=== PATIENT | male | born 1945 | race Caucasian/White ===

== ENCOUNTER → 2023-12-15 06:54 | Outpatient (REF) | payer MEDICARE, SELFPAY | LOC: RAD 06:54 | PROVIDERS: ATTENDING PHYSICIAN Internal Medicine Critical Care Medicine; FAMILY PHYSICIAN Family Medicine | DX: C34.91 Malignant neoplasm of unspecified part of right bronchus or lung (principal) | CPT/HCPCS: 71250 ==

== ENCOUNTER 2023-12-21 06:27 | Day surgery (SDC) | payer MEDICARE, SELFPAY ==
[2023-12-15 09:46] VITALS: BMI 22.7
--- NOTE | 2023-12-15 15:54 | PTCARENOTE ---
Abnormal EKG reviewed by Dr. Hardy, no further action requested.
[2023-12-21] VITALS (7 sets, daily range): BP systolic 117–179; BP diastolic 59–89; BMI 21.7
== END 2023-12-21 12:47 | disposition home or self-care (01) ==
LOC: SDS 06:27
PROVIDERS: ATTENDING PHYSICIAN Internal Medicine Critical Care Medicine
DX: C34.31 Malignant neoplasm of lower lobe, right bronchus or lung (principal)
CPT/HCPCS: 31629; 31624; 31623; 31627; 31654; 88172; 88173; 88305; 71045; 74018; 76000; 88112; 88177; 88333; 88334; 94640; C1887

== ENCOUNTER 2024-06-20 06:07 | Day surgery (SDC) | payer MEDICARE, SELFPAY ==
[2024-06-06 13:59] VITALS: BMI 22.1
[2024-06-20] VITALS (7 sets, daily range): BP systolic 105–136; BP diastolic 64–87; BMI 22.1
[2024-06-20] MEDS: HEPARIN 5000 UNITS SC (06:38)
[2024-06-20] MEDS: NORMOSOL-R/PLASMALYTE-A 1000 IV (06:46)
--- NOTE | 2024-06-20 08:27 | OR.RPT ---
Operative Report
Operative Report
Primary Surgeon: Nano
Assisting: Marla BRAY
Pre-op Diagnosis: Left inguinal hernia
Post-op Diagnosis: Same
Procedure Performed: Robot assisted laparoscopic repair of left inguinal hernia
Anesthesia Type: GETA
Specimen / Cultures: None
Estimated Blood Loss: 2cc
Complications: None immediate
Operative Findings: Left indirect defect and weak direct space without discrete defect, small cord lipoma; XL MID 3D Max
Date of surgery: 06/20/24
Indications:� This 78M developed a symptomatic left inguinal hernia. Robot assisted laparoscopic repair of left inguinal hernias was planned.
Description of procedure:� The patient was taken to the operating room and positioned into supine position. The patient�s abdomen was prepped and draped in standard sterile fashion. A time-out was completed verifying correct patient, procedure,
site, positioning, and implants and special equipment prior to beginning this procedure.
A stab incision was made in the left upper quadrant, a Veress needle was inserted and proper position was confirmed by aspiration and saline drop test. Following this, pneumoperitoneum was created with insufflation of carbon dioxide to 12 mmHg. Then
a 8mm robotic trocar was inserted above and to the left of the umbilicus. A laparoscope was inserted and the area of initial trocar entry and Veress needle placement were both inspected and no injuries were found. Two 8mm trocars were then placed
lateral to the rectus sheath under direct visualization.
Both inguinal regions were inspected and the median umbilical ligament, medial umbilical ligament, and lateral umbilical fold were identified. Right mesh plug noted, stable, no evidence of recurrence. Attention was turned to the left groin. The
peritoneum was incised transversely above the defect and a flap was developed in the caudad direction. North�s ligament was identified ultimately dissected to its junction with the iliac vein and the space of Retzius was developed bluntly.� The
dissection was continued inferiorly to the iliopubic tract, with care taken to avoid injury to the femoral branch of the genitofemoral nerve and the lateral femoral cutaneous nerve. The cord structures were parietalized.
The direct space was inspected and no hernia defect was identified, however the wall was clearly weak in this area. The femoral space was inspected no defect was identified. The indirect space was inspected and a hernia was identified and reduced by
gentle traction. The canal was inspected and a small cord lipoma was identified and reduced by gentle traction.
Extra large left MID 3D max mesh was passed through a trocar. The mesh was placed into the preperitoneal space and moved into position to lay flat and completely cover the direct, indirect, and femoral spaces with overlap at the midline. The mesh
was secured into place using 2-0 vicryl suture to North�s ligament medially and laterally. Care was taken to avoid the inferolateral triangles containing the iliac vessels and genital nerves. The peritoneal flap was closed over the mesh and secured
with 2-0 monocryl stratafix suture in similar positions of safety. A 14g angiocath was used to decompress the preperitoneal space revealing good seal and all mesh in good position without folding or curling.
After ensuring adequate hemostasis, the trocars were removed and the pneumoperitoneum allowed to escape. The trocar incisions were closed at the skin level using 4-0 monocryl and topical skin adhesive. All counts were correct and the patient
tolerated the procedure well and was taken to the postanesthesia care unit in stable condition.
The assistance of Marla BRAY was required due to the complexity of the procedure. During the procedure she assisted with retraction, resection, and closure of the wound.
[2024-06-20] MEDS: TYLENOL 650 MG PO (09:29)
== END 2024-06-20 11:20 | disposition home or self-care (01) ==
LOC: SDS 06:07
PROVIDERS: ATTENDING PHYSICIAN Surgery; FAMILY PHYSICIAN Physician Assistant
DX: K40.90 Unilateral inguinal hernia, without obstruction or gangrene, not specified as recurrent (principal)
CPT/HCPCS: 49650; C1781

== ENCOUNTER 2024-08-29 14:30 | Inpatient (IN) | payer MEDICARE, SELFPAY ==
[2024-08-29] VITALS (22 sets, daily range): BP systolic 100–140; BP diastolic 49–70
[2024-08-29 12:26] LABS: % Basophils 0.2 % (0-2); % Eosinophils 0.1 % (0-6); % Immature Granulocytes 7.1 % (0-0.5); % Lymphocytes 3.4 % (20.5-51.1); % Monocytes 4.4 % (1.7-9.3); % Neutrophils 84.8 % (42.2-75.2); Absolute Immature Granulocytes 1.3 10^3/uL (0-0.05); Absolute Lymphocytes 0.6 10^3/uL (1.2-3.4); Absolute Monocytes 0.8 10^3/uL (0.1-0.6); Absolute Neutrophils 15.6 10^3/uL (1.4-6.5); Mean Corp Hgb Conc. 33.3 g/dL (33.0-37.0); Mean Corpuscular Hgb 30.3 pg (27.0-31.0); Mean Corpuscular Volume 90.9 fL (80.0-94.0); Mean Platelet Volume 9.5 fL (7.4-10.4); Nucleated Red Blood Cells % 2.4 % (-); Platelet Count 316 10^3/uL (130-400); Red Blood Cell Count 1.65 10^6/uL (4.70-6.10); Red Cell Dist. Width 18.6 % (11.5-14.5); White Blood Cell Count 18.4 10^3/uL (4.8-10.8)
[2024-08-29 12:36] LABS: NT-proBNP 1820 pg/ml
[2024-08-29 12:37] LABS: AST (SGOT) 36 U/L (17-59); Albumin 2.8 g/dl (3.5-5.0); Alkaline Phosphatase 100 U/L (38-126); Blood Urea Nitrogen 26 mg/dl (9-20); Carbon Dioxide 22 mmol/L (22-30); Chloride 100 mmol/L (98-107); Estimated Creatinine Clearance 61 ml/min; Glucose 126 mg/dl (70-99); Potassium 4.6 mmol/L (3.5-5.1); Sodium 131 mmol/L (135-145); Total Bilirubin 0.5 mg/dl (0.2-1.3); Total Protein 5.2 g/dl (6.3-8.2); Troponin I 0.099 ng/ml; eGFR > 60.00
[2024-08-29 12:38] LABS: ALT (SGPT) 60 U/L (0-50)
--- NOTE | 2024-08-29 13:26 | ED.GENMED ---
History of Present Illness
General
Chief Complaint: Breathing Problem
Time Seen by Provider: 08/29/24 11:21
History of Present Illness
History of Present Illness:
78-year-old male with history of COPD, Known right lower lobe lung cancer status post proton therapy and radiation presents to the emergency department for evaluation of shortness of breath and hypoxemia. Went to his primary care physician's office
due to shortness of breath and was found to be hypoxic. Patient is currently under the care of oncology at [facility], has been following his lung cancer with routine CAT scans. He apparently had CT scans on August 13 as well as August 23 at
[facility] that were negative for pulmonary embolism but showing a stable mass in the right lower as well as left lower lobes. He is not currently on any oncologic treatments. He denies any chest pain during my evaluation but reported this
to EMS as well as nursing staff on arrival. Not chronically on O2. Of note he was also treated earlier this month for herpes zoster of the left chest with prednisone
Review of Systems
Review of Systems
Allergies reviewed?: Yes
All Other Systems: ROS reviewed and negative except as documented in HPI and ROS
Phy Exam
Physical Exam
Physical Exam:
GEN: Well appearing, NAD, WDWN
Eyes: PERRLA, EOMs intact, no scleral icterus
HENT: NCAT, oral mucosa moist
Lungs: Tachypneic, wheezes heard throughout all lung oliva, mildly diminished left breath sounds
Cardiac: Tachycardic, regular, questionable systolic murmur best heard at the left upper sternal border
Abdomen: S, NT, ND, NABS, no masses or hepatosplenomegaly
Rectal: Melanotic stool in the rectal vault, heme positive
Neuro: AO x 3
MSK: No gross deformity or ecchymosis. No edema. No digital clubbing
Skin: No rashes, petechiae. Normal color, no pallor or jaundice.
Psych: Calm, cooperative, proper hygiene
Scores
Heart Failure Risk
Heart Failure Risk Score: Not Applicable
Course
Orders/Labs/Results
Orders:
Orders
08/29/24 11:21
Electrocardiogram (*1) Urgent
Reason for Study: Other
Other Reason for Exam: Respiratory Distress
Cardiac Monitoring- Treatment ONCE
EKG- Treatment ONCE
O2 Therapy [RESP] Urgent
Titrate/Wean O2 to maintain O2 sat greater than (%): 93
Special Instructions: TO MAINTAIN CONTINUOUS O2 SATS >/= 93%
08/29/24 11:31
CR Chest - 2 Views Urgent
Comment:
Reason For Exam: SOB
08/29/24 11:38
Complete Blood Count/With Diff Urgent
Comprehensive Metabolic Panel Urgent
NT-proBNP Urgent
Troponin I Urgent
08/29/24 12:52
Blood Bank Products [* Blood Bank Products] Urgent
Blood Bank Products: *Packed RBC Leuko(PRBC's)
Quantity: 2
Transfuse Today: Yes
Reason: Bleeding
Pantoprazole [Protonix IV] 80 mg IV NOW STA
08/29/24 13:00
Pantoprazole 80 mg/100 ml Nss [Protonix] 80 mg in 100 ml IV Q10H
08/29/24 13:13
Type+Screen Urgent
[facility] Wristband Number:
08/29/24 13:29
ABO2 Urgent
[facility] Wristband Number:
Associate notified that ABO2 has been ordered: [id number]
Date: 08/29/24
Time: 13:00
Teacher Associate ID: [id number]
Abnormal Lab Results
08/29/24
11:38
WBC 18.4 H 10^3/uL
(4.8-10.8)
RBC 1.65 L 10^6/uL
(4.70-6.10)
Hgb 5.0 L* g/dL
(13.0-18.0)
Hct 15.0 L* %
(39.0-52.0)
RDW 18.6 H %
(11.5-14.5)
Abs Immat Gran (auto) 1.3 H 10^3/uL
(0-0.05)
Absolute Neuts (auto) 15.6 H 10^3/uL
(1.4-6.5)
Absolute Lymphs (auto) 0.6 L 10^3/uL
(1.2-3.4)
Absolute Monos (auto) 0.8 H 10^3/uL
(0.1-0.6)
Immature Gran % 7.1 H %
(0-0.5)
Neutrophils % 84.8 H %
(42.2-75.2)
Lymphocytes % 3.4 L %
(20.5-51.1)
Sodium 131 L mmol/L
(135-145)
BUN 26 H mg/dl
(9-20)
Glucose 126 H mg/dl
(70-99)
Calcium 8.0 L mg/dl
(8.4-10.2)
ALT 60 H U/L
(0-50)
Troponin I 0.099 H* ng/ml
Total Protein 5.2 L g/dl
(6.3-8.2)
Albumin 2.8 L g/dl
(3.5-5.0)
08/29/24 11:38
08/29/24 11:38
Vital Signs
Initial and Last Documented VS:
Initial Vital Signs
BP
112/56
08/29/24 11:19
Last Documented Vital Signs
Temp Pulse Resp BP Pulse Ox
98.7 F 98 19 112/56 99
08/29/24 11:23 08/29/24 12:00 08/29/24 12:00 08/29/24 11:23 08/29/24 12:00
MDM/Problems Addressed
MDM/Problems Addressed:
Patient's shortness of breath is most likely on the basis of acute anemia which is most likely due to upper GI bleeding in the setting of recent prednisone usage. Lack of digital perfusion may explain his hypoxemia although he did improve with
supplemental oxygen use. Certainly cannot fully discount a pulmonary source however doubt pulmonary embolism given the 2 negative PE studies within the past 2 weeks and lack of current chest pain. Will admit on PPI infusion with blood transfusion
ordered
*Critical Care Note
Total Time (30-74mins, 75-104mins- exclusive of procedures): 30 minutes
comment:
Critical care time: 30 minutes
Critical care time was exclusive of: Separately billable procedures, treating other patients, and teaching time
Critical care was necessary to treat or prevent imminent or life-threatening deterioration of the following conditions: Acute blood loss anemia
Critical care time spent personally by me on the following activities:
[x] Review of old charts
[x] Obtaining history from patient or surrogate
[x] Ordering and review of the laboratory studies
[x] Ordering and review of radiographic studies
[x] Ordering and performing treatments and interventions
[x] Patient patient's response to treatment
[x] Development of treatment plan with patient or surrogate
ED Attending Note
-
Portions of this chart may have been created with voice recognition software.� Occasional wrong word or��sound alike� substitutions may have occurred due to the inherent limitations of voice recognition software.
Discharge Plan
Departure
Patient Disposition: Admit
Date of Disposition: 08/29/24
Time of Disposition: 13:40
Admit to: Med/Surg
Presentation/result/management discussed w/ accepting MD/DO: Hospitalist
Discharge Problem:
Acute upper GI bleed
Prescriptions:
No Action
latanoprost 0.005 % Drops
1 drp BOTH EYES HS
acetaminophen 500 mg Capsule
1,000 mg PO Q6H PRN (Reason: pain)
Breztri Aerosphere 160-9-4.8 mcg/actuation Hfa Aerosol Inhaler
2 inh INHALATION HS
atorvastatin 20 mg Tablet
20 mg PO HS
ibuprofen 200 mg Tablet
400 mg PO Q6H PRN (Reason: Pain)
tramadol 50 mg tablet
50 - 100 mg PO Q6H PRN (Reason: pain) Qty: 14 0RF
Referrals:
Yaima Sumner MD [Family Provider] -
Interventions
Interventions:
*Risk Screen - Suicide Last Done: 08/29/24 11:23
*General Assessment Last Done: 08/29/24 11:23
*Neglect/Abuse Screening Last Done: 08/29/24 11:23
*ED- Fall Risk Assessment Last Done: 08/29/24 11:23
*ED COVID-19 Vaccine History Last Done: 08/29/24 11:23
ED- Cardiac Assessment Last Done: 08/29/24 11:20
ED- Pulmonary Assessment Last Done: 08/29/24 11:20
Discharge Date and Time
Print Language: WOLOF
--- NOTE | 2024-08-29 13:46 | HPS.HSE ---
Family Physician
-
Family Physician: Yaima Sumner
Chief Complaint
-
Shortness of Breath
History of Present Illness
Patient is a 78 y/o male past medical history of lung cancer s/p proton therapy, COPD and hyperlipidemia who presents with shortness of breath. Patient reports increasing dyspnea on exertion and significant weakness. He reports associated
dizziness. He has been taking steroids for his lung and recently has been taking ibuprofen 400mg three to four times a day due to pain from recent shingles. Work-up in the emergency department revealed Hgb 5.0. Patient reports black stools for
about a month, with some intermittent epigastric abdominal discomfort. Patient denies any prior histoyr of GI bleed, and he has never had a upper endoscopy or colonoscopy.
Medical History
Past Medical History
Past Medical History: Reports Other
Additional Past Medical History:
Lung Cancer s/p Proton Therapy and Radiation
COPD
Hyperlipidemia
Shingles
Past Surgical History: Reports Other
Additional Past Surgical History:
Hernia Repair
Appendectomy
Bilateral Cataracts
Social History
Tobacco: Former Smoker (Quit about 6 months ago)
Alcohol: Occasional
Family History
Family History: Not pertinent
Allergies / Home Medications
Allergies reflects when Allergies were last updated in [facility].
Home Medications with original date entered in [facility]
Allergy/Medication List:
Allergies
Allergy/AdvReac Type Severity Reaction Status Date / Time
No Known Allergies Allergy Verified 08/29/24 11:19
Home Medications
budesonide 160 mcg-glycopyr 9 mcg-formot 4.8 mcg/actuation HFA inhaler (Breztri Aerosphere) 2 inh inhalation R BID 10/01/22
latanoprost 0.005 % eye drops 1 drp BOTH EYES HS 10/01/22
atorvastatin 20 mg tablet 20 mg PO HS 12/17/23
ibuprofen 200 mg tablet 400 mg PO Q6HPRN PRN mild Pain 12/17/23
albuterol sulfate 90 mcg/actuation aerosol inhaler 2 puff inhalation R Q6HPRN PRN sob 08/29/24
gabapentin 300 mg capsule 300 mg PO BIDPRN PRN shingles 08/29/24
prednisone 10 mg tablet 10 mg PO BID 08/29/24
Review of Systems
-
A 12 point ROS was completed and negative except as noted: Yes
Constitutional: Denies Fever or Chills
Respiratory: Reports Trouble Breathing; Denies Cough
Cardiac: Denies Chest Pain or Palpitations
Physical Exam
Vital Signs
Vital Signs
Temp Pulse Resp BP Pulse Ox
98.7 F 98 19 112/56 99
08/29/24 11:23 08/29/24 12:00 08/29/24 12:00 08/29/24 11:23 08/29/24 12:00
Physical Exam
General: Well Developed, Well Nourished, No Apparent Distress and Other (Appears pale)
HEENT: NormoCephalic, Anicteric, Moist mucous membranes, Atraumatic and Oxygen (Nasal Cannula)
Respiratory: Clear and Non Labored Respirations; No Wheezes, Rales or Rhonchi
Cardiac: S1/S2, Regular Rhythm and Tachycardia (Slightly); No Murmur
GI: Soft and Non Tender
Rectal: Deferred by Provider
Musculoskeletal: No Clubbing, No Cyanosis and No Edema
Skin: Warm and Dry; No Rash
Neuro: Awake, Alert, Oriented and Nonfocal/grossly intact
Psych: Calm
Laboratory Results
-
08/29/24 11:38
08/29/24 11:38
Laboratory Results
Total Bilirubin 0.5 mg/dl (0.2-1.3) 08/29/24 11:38
AST 36 U/L (17-59) 08/29/24 11:38
ALT 60 U/L (0-50) H 08/29/24 11:38
Alkaline Phosphatase 100 U/L (38-126) 08/29/24 11:38
Troponin I 0.099 ng/ml H* 08/29/24 11:38
Data Reviewed
-
Lab Data: Labs Reviewed by me
Impression/Plan
-
Symptomatic Acute Blood Loss Anemia secondary to GI Bleed
-Check iron studies
-Transfuse 2 units PRBCs
-Trend serial Hgb
Upper GI Bleed likely secondary to NSAIDs and steroids
-Consult GI
-Continue NPO
-Continue Protonix drip
Elevated Troponin, suspect Type II AL due to demand ischemia in setting of severe anemia
-Continue to trend troponin
Leukocytosis, no evidence of active infection
-Suspect reactive due to GI Bleed
-Continue to trend
-Monitor for signs/symptoms of infections
Hyponatremia, mild
-Continue to trend
COPD, no acute exacerbation
-Continue Breztri
-Continue albuterol prn
-Wean prednisone twice a day to daily
Lung Cancer s/p Proton Therapy
-Patient reports known right upper lobe lung cancer, and known left lower lung mass which is non-cancerous
Hyperlipidemia
-Resume atorvastatin when able to resume diet
DVT proph: SCDs
Code Status: Full Code
[2024-08-29] MEDS: PROTONIX IV 80 MG IV (13:49)
[2024-08-29] MEDS: PROTONIX 100 IV ×2 (13:50→23:39)
--- NOTE | 2024-08-29 14:14 | W.PN.UPDATE ---
Update Note
Progress Note Update
This is an addendum to H&P written by Vanessa Bueno on 08/29/2024. Patient seen and examined independently with PA.
58-year-old male past medical history of COPD, known right lower lobe lung cancer status post proton therapy and radiation not currently on treatment, recent herpes zoster status post treatment with prednisone and taking ibuprofen, presenting with
shortness of breath and hypoxemia and dizziness. Has been having black stool for a month with epigastric discomfort. No chest pain. Patient states that he was told that he has a mass in his left lower lung as well which is not a cancer.
Vital signs show tachycardia. EKG shows normal sinus rhythm, left anterior fascicular block. Chest x-ray shows opacification in the right lung base secondary to known lung cancer. New opacity in the mid to lower left lung which may represent
malignancy or pneumonia.
Labs show hemoglobin of 5 from 13. Leukocytosis of 18. Sodium of 131. Troponin 0.099. Cardiac BNP of 1800.
Patient with likely peptic ulcer with acute blood loss anemia from NSAID use. N.p.o., 2 units of blood, iron studies, Protonix drip, GI consulted.
Chest x-ray showing findings of pneumonia although no correlating symptoms. This is likely known as per patient. Suspect leukocytosis is reactive from upper GI bleeding.
--- NOTE | 2024-08-29 14:39 | CON.GI ---
Addendum entered and electronically signed by Nicolas Low MD 08/29/24 18:37:
I saw and examined the patient.
The PA's note was reviewed and I agree with the note.
Comment:
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 He reports significant NSAID use with ibuprofen 400 mg 3-4 times per day for past
month. He also reports melena for past month. Denies prior EGD. Hgb on admission is 5. Receiving pRBC today. Suspect PUD given his NSAID use. Plan for EGD tomorrow. Continue with PPI.
Original Note:
Consultation
-
Date/Time Consultation Requested: 08/29/24 1414
Date/Time Consultation Performed: 08/29/24 1440
Requesting Provider: Vanessa Galvez PA-C
Performing Provider: AAKASH Arrington, Nicolas Low MD
Reason for Consultation: GI bleed
Medical History
Chief Complaint / HPI
Chief Complaint: black stools
History of Present Illness:
Pt is a 78yo with hx emphysema/COPD, squamous cell of lung with radiation BID and Proton therapy in March of 2024, inguinal hernia repair, appe, hypercholesterolemia, and recent shingles with onset of shortness of breath with weakness and
dizziness. In ER pt admitted to taking steroids along with Ibuprofen 400mg 3-4 times per day with recent shingles pain. On admission hbg 5 with BUN of 26 and reports black stools for 1 month with 1 stool daily with melena on rectal in ER. Pt
also admits to issue ulcer from broken tooth rubbing on tongue.
At this time patient admits to GERD but denies odynophagia, dysphagia, abdominal pain, constipation or reds stools. No hx EGD or colonoscopy in past.
Past Medical History
Past Medical History: COPD and Other (prior shingles )
Past Surgical History: Appendectomy and Other (inguinal hernia repair, cartaracts )
Social History
Tobacco: Former Smoker
Alcohol: Occasional
Drug: None
Personal:
Living: With Family
Employment: Retired
Family History
Family History: Other (one son with GERD and son with prostate CA)
Allergies / Home Medications
Allergy/AdvReac Type Severity Reaction Status Date / Time
No Known Allergies Allergy Verified 08/29/24 11:19
�Medication �Instructions �Recorded
budesonide 160 mcg-glycopyr 9 2 inh inhalation R BID 10/01/22
mcg-formot 4.8 mcg/actuation HFA
inhaler (27 [address])
latanoprost 0.005 % eye drops 1 drp BOTH EYES HS 10/01/22
atorvastatin 20 mg tablet 20 mg PO HS 12/17/23
ibuprofen 200 mg tablet 400 mg PO Q6HPRN PRN mild Pain 12/17/23
albuterol sulfate 90 mcg/actuation 2 puff inhalation R Q6HPRN PRN sob 08/29/24
aerosol inhaler
gabapentin 300 mg capsule 300 mg PO BIDPRN PRN shingles 08/29/24
prednisone 10 mg tablet 10 mg PO BID 08/29/24
Review of Systems
-
History Source: Patient and Family
Constitutional: Reports No Symptoms
EENT: Reports Other (mouth pain with tooth issue and ulcer on tongue from tongue rubbing on tooth )
Respiratory: Reports Trouble Breathing
Cardiac: Reports No Symptoms
Abdomen/GI: Reports Other (mild GERD)
: Reports Difficulty Voiding
Neurological: Reports Weakness
Endocrine: Reports No Symptoms
Hematologic/Lymphatic: Reports Bleeding
Vital Signs
Temp Pulse Resp BP Pulse Ox
98.7 F 93 18 108/62 100
08/29/24 11:23 08/29/24 13:45 08/29/24 13:45 08/29/24 13:00 08/29/24 13:58
Physical Exam
Exam
General: Other (pale appearing )
HEENT: Normocephalic and Anicteric
Respiratory: Other (decreased bases )
Cardiac: Regular Rhythm
GI: Soft, Non Tender and Non Distended
Rectal: Black (in ER)
Musculoskeletal: No Clubbing and No Cyanosis
Skin: Warm, Dry and Other (left shoulder rash with healing )
Neuro: Awake, Alert and AO x 3
Psych: Calm
Results
WBC 18.4 10^3/uL (4.8-10.8) H 08/29/24 11:38
Hgb 5.0 g/dL (13.0-18.0) L* 08/29/24 11:38
Hct 15.0 % (39.0-52.0) L* 08/29/24 11:38
MCV 90.9 fL (80.0-94.0) 08/29/24 11:38
Plt Count 316 10^3/uL (130-400) 08/29/24 11:38
Absolute Neuts (auto) 15.6 10^3/uL (1.4-6.5) H 08/29/24 11:38
Sodium 131 mmol/L (135-145) L 08/29/24 11:38
Potassium 4.6 mmol/L (3.5-5.1) 08/29/24 11:38
Chloride 100 mmol/L (98-107) 08/29/24 11:38
Carbon Dioxide 22 mmol/L (22-30) 08/29/24 11:38
BUN 26 mg/dl (9-20) H 08/29/24 11:38
Creatinine 0.8 mg/dL (0.7-1.3) 08/29/24 11:38
Calcium 8.0 mg/dl (8.4-10.2) L 08/29/24 11:38
Total Bilirubin 0.5 mg/dl (0.2-1.3) 08/29/24 11:38
AST 36 U/L (17-59) 08/29/24 11:38
ALT 60 U/L (0-50) H 08/29/24 11:38
Alkaline Phosphatase 100 U/L (38-126) 08/29/24 11:38
Diagnostic Image Results:
08/29/24 Chest - 2 Views
Opacification of the right lung base in part secondary to the patient's known right lower lobe lung cancer, with suspicion for accompanying postobstructive atelectasis or pneumonia.
New opacity in the mid to lower left lung, which may represent malignancy or pneumonia.
No pneumothorax or large pleural effusion. The cardiomediastinal silhouette is stable. Chronic degenerative changes of the spine.
Prior GI Procedures:
EGD: none
Colonoscopy: none
Assessment / Plan
-
Pt is a 78yo with hx emphysema/COPD, squamous cell of lung with radiation BID and Proton therapy in March of 2024, inguinal hernia repair, appe, hypercholesterolemia, and recent shingles with onset of shortness of breath with weakness and
dizziness. In ER pt admitted to taking steroids along with Ibuprofen 400mg 3-4 times per day with recent shingles pain. On admission hbg 5 with BUN of 26 and reports black stools for 1 month with 1 stool daily with melena on rectal in ER. Pt
also admits to issue ulcer from broken tooth rubbing on tongue.
-symptomatic anemia
-melena
-recent NSAID for shingles pain
-squamous cell of lung with radiation BID and Proton therapy in March of 2024 on prolonged steroids use
-broke tooth with tongue ulcer
other med problems:
-emphysema/COPD
-inguinal hernia repair
-appe
- hypercholesterolemia
PLAN:etiology of melena with anemia related to PUD, ectasia, mass vs other
plan for transfusion today
will plan for tentative EGD in AM if hbg improved
if EGD not consider eventual colonoscopy with no prior screening in past
since slow bleed ok for low residue dinner then NPO for AM
trend hbg
cont PPI
updated
-
-
Thank you for consultation and allowing me to participate in the patient's care. Please call the specialty finishing utility person GI physician during the after hours with any questions or concerns.
[2024-08-29 15:41] LABS: Iron 33 ug/dl (49-181)
[2024-08-29 15:48] LABS: Percent Saturation 15 % (20-50); Total Iron Binding Capacity 209 ug/dl (261-462)
[2024-08-29] MEDS: TYLENOL 650 MG PO (16:40)
[2024-08-29 17:08] LABS: Folate 9.1 ng/ml (2.76-20); Vitamin B12 711 pg/ml (239-931)
[2024-08-29 19:18] LABS: Hematocrit 18.6 % (39.0-52.0); Hemoglobin 6.3 g/dL (13.0-18.0)
[2024-08-29 19:23] LABS: Troponin I 0.226 ng/ml
[2024-08-29] MEDS: NSS 1000 IV (20:33)
[2024-08-29] MEDS: SYMBICORT 160/4.5 MCG INHALER 2 PUFF INH (21:26)
[2024-08-29] MEDS: NEURONTIN 300 MG PO (22:39)
[2024-08-30] VITALS (22 sets, daily range): BP systolic 22–156; BP diastolic 54–102; PULSE 133; O2SAT 91; BMI 21.3
[2024-08-30] MEDS: TYLENOL 650 MG PO ×2 (00:25→07:46)
[2024-08-30] MEDS: PROTONIX IV (00:25)
[2024-08-30 01:06] LABS: Hemoglobin 9.3 g/dL (13.0-18.0)
[2024-08-30 01:15] LABS: Troponin I 0.269 ng/ml
--- NOTE | 2024-08-30 03:03 | PTCARENOTE ---
Received pt from ED. Pt aaox3, anxious, forgetful at times, able to make needs known. ST with BBB on the monitor. SaO2 93% on 3LNC. Inspiratory and expiratory wheezes throughout. SANCHEZ. NPO @[place] for EGD in AM. NSS and PPI gtt running through L FA. PO
tylenol given for pain from shingles on L upper chest. Pt resting comfortable in bed at this time. Repeat hgb 9.3, repeat trop 0.269. Will repeat with am labs.
[2024-08-30 06:07] LABS: Blood Urea Nitrogen 20 mg/dl (9-20); Calcium 7.2 mg/dl (8.4-10.2); Carbon Dioxide 21 mmol/L (22-30); Chloride 107 mmol/L (98-107); Estimated Creatinine Clearance 70 ml/min; Glucose 102 mg/dl (70-99); Potassium 4.1 mmol/L (3.5-5.1); Sodium 133 mmol/L (135-145); eGFR > 60.00
[2024-08-30 06:11] LABS: Troponin I 0.267 ng/ml
[2024-08-30 06:43] LABS: Hematocrit 22.4 % (39.0-52.0); Hemoglobin 7.8 g/dL (13.0-18.0); Mean Corp Hgb Conc. 34.8 g/dL (33.0-37.0); Mean Corpuscular Hgb 29.9 pg (27.0-31.0); Mean Corpuscular Volume 85.8 fL (80.0-94.0); Mean Platelet Volume 8.9 fL (7.4-10.4); Platelet Count 229 10^3/uL (130-400); Red Blood Cell Count 2.61 10^6/uL (4.70-6.10); Red Cell Dist. Width 16.8 % (11.5-14.5); White Blood Cell Count 12.4 10^3/uL (4.8-10.8)
[2024-08-30] MEDS: DELTASONE 10 MG PO (07:46)
[2024-08-30] MEDS: NSS 1000 IV (07:46)
[2024-08-30] MEDS: SYMBICORT 160/4.5 MCG INHALER 2 PUFF INH ×2 (08:16→20:16)
[2024-08-30] MEDS: SPIRIVA RESPIMAT 2.5 MCG 2 PUFF INH (08:16)
[2024-08-30] MEDS: PROTONIX 100 IV (08:27)
--- NOTE | 2024-08-30 09:30 | PTCARENOTE ---
Patient sent to GI Lab with transport.
--- NOTE | 2024-08-30 15:54 | CM ---
Patient with Hx lung cancer and shingles with Dx GIB s/p EGD today. Contact Precautions. O2 3L. Receiving IVF. PT recommends SNF vs HH, OT recommends HH + support.
Spoke with patient's Lynnette;
the patient resides with his in a double wide mobile home with 1 YAHAIRA.
Other family resides on same property in another home.
The patient has been independent in ADLs and ambulation, mostly sitting in his recliner during the day.
About 3 days ago he became weak and was not eating. 2 family members had to assist him to get into car to come to hospital.
No DME however PA at [facility] was ordering him some O2 which has not arrived - will call and find out what was ordered and through which DME company, and let CM know.
No prior VN or SNF.
Prior [facility]
PCP - DRE Shepard
Pharmacy - [facility]
agrees to VN for SN/PT/OT and has no agency preference- she agrees to a referral to [facility].
Plan follow up with about home O2 that PCP ordered.
Plan home with [facility].
--- NOTE | 2024-08-30 16:00 | PTCARENOTE ---
Patient walked to bathroom with RN. Pt had very dark brown BM in toilet. Pt remains dyspneic on exertion and tachypneic on 3L. SPO2 drops into 80s with exertion. Pt recovers quickly within a few minutes. Pt c/o of pain to L shoulder/chest area
today, medicated with Tylenol, see MAR. Pt's at bedside most of the morning and updated per RN ability. Assessment, care and VS as charted.
--- NOTE | 2024-08-30 16:41 | W.PN.HOSP.TC ---
Today's Communication/Plan
-
CT chest
Monitor hemoglobin
Stop fluids
Assessment / Plan
Assessment / Plan
Physical Exam
General: Well Developed, Well Nourished, No Apparent Distress and Other (Appears pale)
HEENT: NormoCephalic, Anicteric, Moist mucous membranes, Atraumatic and Oxygen (Nasal Cannula)
Respiratory: Clear and Non Labored Respirations; No Wheezes, Rales or Rhonchi
Cardiac: S1/S2, Regular Rhythm and Tachycardia (Slightly); No Murmur
GI: Soft and Non Tender
Rectal: Deferred by Provider
Musculoskeletal: No Clubbing, No Cyanosis and No Edema
Skin: Warm and Dry; No Rash
Neuro: Awake, Alert, Oriented and Nonfocal/grossly intact
Psych: Calm
Symptomatic Anemia
-i suspect with elev ferritin levels and mass - issue of anemia of chronic disease
--Transfuse 2 units PRBCs
-Trend serial Hgb
-EGD without active bleed, F/u EGD outpt
-PPI
-GI recs appreciated
-f/u tsh
-May need hematology eval, will wait for ct imaging
#Shortness of breath
#Lung Opacities
-related to symptomatic anemia and possible underlying pulm issue
-f/u ct imaging
-possible Pulm/Onc consult thereafter
Elevated Troponin, suspect Type II IL due to demand ischemia in setting of severe anemia
-Continue to trend troponin
Leukocytosis, no evidence of active infection
-Suspect reactive due to GI Bleed
-Continue to trend
-Monitor for signs/symptoms of infections
Hyponatremia, mild
-Continue to trend
COPD, no acute exacerbation
-Continue Breztri
-Continue albuterol prn
-Wean prednisone twice a day to daily
Lung Cancer s/p Proton Therapy
-Patient reports known right upper lobe lung cancer, and known left lower lung mass which is non-cancerous
-repeat chest imaging
Hyperlipidemia
-Resume atorvastatin when able to resume diet
DVT proph: SCDs for today until hemoglobin ensured to be stable
Code Status: Full Code
Total time spent on today's encounter was 51 minutes which included time spent in counseling the patient/family regarding diagnosis and treatment plan as listed above, goals of care, and symptom management. Case was discussed with nursing staff,
specialists, and care coordinators/case management. All labs and imaging personally reviewed by me. Remainder the time spent in detailed review of previous records, lab data, imaging, and other medical provider documentation.
Anticipated Discharge: 24 - 48 hours
Subjective/Interval History
-
Date of Service: August 30, 2024
still with SOB,egd unremarkable for active bleed
Objective Data
-
Labs:
Laboratory Results
08/30/24
05:32
WBC 12.4 H
Hgb 7.8 L
Hct 22.4 L
Plt Count 229 D
Sodium 133 L
Potassium 4.1
Chloride 107
Carbon Dioxide 21 L
BUN 20
Creatinine 0.7
Glucose 102 H
Calcium 7.2 L
Vital Signs:
Vital Signs
Temp Pulse Resp BP Pulse Ox
98.6 F 118 28 133/76 92
08/30/24 11:10 08/30/24 12:53 08/30/24 12:53 08/30/24 12:53 08/30/24 13:07
I&O
08/29/24 08/30/24 08/31/24
06:59 06:59 06:59
Intake Total 500 / 500 730 / 730
Output Total 900 / 900
Balance 500 / 500 -170 / -170
Review of Systems
-
History Source: Patient
All other systems: Not reviewed unless documented
Data Reviewed
-
Diagnostic Radiology: Report Reviewed by me
Labs: Labs Reviewed by me
[2024-08-30 17:28] LABS: Iron < 20 ug/dl (49-181)
[2024-08-30 17:29] LABS: Total Iron Binding Capacity 192 ug/dl (261-462)
[2024-08-30 18:11] LABS: TSH Reflex To Free T4 1.35 uIU/ml (0.47-4.68)
[2024-08-30 18:47] LABS: Folate 7.8 ng/ml (2.76-20); Vitamin B12 711 pg/ml (239-931)
[2024-08-30] MEDS: PROTONIX 40 MG PO (19:23)
--- NOTE | 2024-08-30 19:35 | PTCARENOTE ---
Addendum entered by Randi Sánchez RN 08/31/24 06:07:
02 able to be titrated back down to 3 after multiple doses of morphine.
Addendum entered by Randi Sánchez RN 08/31/24 06:01:
Patient continued with heart rate sustaining in the 130s and tachypnea. disease control inspector provider ordered one time dose of metoprolol and q2h PRN morphine for dyspnea.
Addendum entered by Randi Sánchez RN 08/31/24 06:01:
and one time dose lasix administered.
Addendum entered by Randi Sánchez RN 08/30/24 19:52:
call center coordinator SOUND RECORDIST ordered x1 dose morphine and chest xray. 02 turned from 3 liters to 6.
Original Note:
Patient tachypneic, tachycardic, anxious. RR in the 30s heart rate in the 120s. TT sent to SOUND RECORDIST to inquire about a 1x dose of morphine.
[2024-08-30] MEDS: MORPHINE SULFATE 2 MG IV (19:48)
[2024-08-30] MEDS: VENTOLIN NEBULES 2.5 MG INH (20:17)
[2024-08-30] MEDS: LASIX 20 MG IV (21:12)
[2024-08-31] VITALS (12 sets, daily range): BP systolic 96–133; BP diastolic 54–69; BMI 21.2
[2024-08-31] MEDS: STERILE WATER FOR INJECTION 10 ML IV ×2 (00:24→18:01)
[2024-08-31] MEDS: ROCEPHIN 1000 MG IV (00:24)
[2024-08-31] MEDS: VIBRAMYCIN 100 MG PO ×2 (00:24→09:23)
[2024-08-31 00:27] LABS: Magnesium 2.1 mg/dl (1.6-2.3)
[2024-08-31 00:28] LABS: Blood Urea Nitrogen 17 mg/dl (9-20); Calcium 7.6 mg/dl (8.4-10.2); Carbon Dioxide 20 mmol/L (22-30); Chloride 105 mmol/L (98-107); Estimated Creatinine Clearance 60 ml/min; Glucose 138 mg/dl (70-99); Potassium 3.8 mmol/L (3.5-5.1); Sodium 131 mmol/L (135-145); eGFR > 60.00
[2024-08-31 00:36] LABS: % Basophils 0.4 % (0-2); % Eosinophils 0.1 % (0-6); % Immature Granulocytes 2.7 % (0-0.5); % Lymphocytes 3.3 % (20.5-51.1); % Monocytes 3.7 % (1.7-9.3); % Neutrophils 89.8 % (42.2-75.2); Absolute Basophils 0.1 10^3/uL (0-0.2); Absolute Immature Granulocytes 0.4 10^3/uL (0-0.05); Absolute Lymphocytes 0.5 10^3/uL (1.2-3.4); Absolute Monocytes 0.5 10^3/uL (0.1-0.6); Absolute Neutrophils 12.5 10^3/uL (1.4-6.5); Hematocrit 26.3 % (39.0-52.0); Hemoglobin 9.1 g/dL (13.0-18.0); Mean Corp Hgb Conc. 34.6 g/dL (33.0-37.0); Mean Corpuscular Hgb 29.6 pg (27.0-31.0); Mean Corpuscular Volume 85.7 fL (80.0-94.0); Mean Platelet Volume 9.5 fL (7.4-10.4); Nucleated Red Blood Cells % 0.8 % (-); Platelet Count 242 10^3/uL (130-400); Red Blood Cell Count 3.07 10^6/uL (4.70-6.10); Red Cell Dist. Width 17.3 % (11.5-14.5); White Blood Cell Count 13.9 10^3/uL (4.8-10.8)
[2024-08-31] MEDS: LOPRESSOR 5 MG IV (00:44)
[2024-08-31] MEDS: MORPHINE SULFATE 2 MG IV ×3 (00:44→10:36)
[2024-08-31 04:49] LABS: Hemoglobin 7.9 g/dL (13.0-18.0); Mean Corp Hgb Conc. 34.3 g/dL (33.0-37.0); Mean Corpuscular Hgb 29.7 pg (27.0-31.0); Mean Corpuscular Volume 86.5 fL (80.0-94.0); Mean Platelet Volume 9.3 fL (7.4-10.4); Platelet Count 219 10^3/uL (130-400); Red Blood Cell Count 2.66 10^6/uL (4.70-6.10); Red Cell Dist. Width 17.1 % (11.5-14.5); White Blood Cell Count 13.3 10^3/uL (4.8-10.8)
[2024-08-31 06:13] LABS: % Basophils 0.2 % (0-2); % Eosinophils 0.2 % (0-6); % Immature Granulocytes 2.6 % (0-0.5); % Lymphocytes 2.6 % (20.5-51.1); % Monocytes 4.1 % (1.7-9.3); % Neutrophils 90.3 % (42.2-75.2); Absolute Immature Granulocytes 0.4 10^3/uL (0-0.05); Absolute Lymphocytes 0.4 10^3/uL (1.2-3.4); Absolute Monocytes 0.6 10^3/uL (0.1-0.6); Nucleated Red Blood Cells % 0.5 % (-)
[2024-08-31] MEDS: SPIRIVA RESPIMAT 2.5 MCG 2 PUFF INH (08:03)
[2024-08-31] MEDS: SYMBICORT 160/4.5 MCG INHALER 2 PUFF INH ×2 (08:03→19:52)
--- NOTE | 2024-08-31 08:20 | VATNOTE ---
VAT rounds: #18 LUE IV discontinued due to phlebitis (see charting), heat applied.
[2024-08-31] MEDS: PROTONIX 40 MG PO ×2 (09:23→20:17)
[2024-08-31] MEDS: DELTASONE 10 MG PO (09:23)
--- NOTE | 2024-08-31 10:55 | PTCARENOTE ---
Received on 3L NC however pox alarming 86%- increased to 5L to maintain pox >91%. CT Chest completed- returned sat in chair for breakfast- c/o SANCHEZ and at rest. ST on tele 100s-120s BP 119/68- PRN MSO4 given- will monitor effects. Family at
bedside.
--- NOTE | 2024-08-31 12:17 | CM ---
Addendum entered by Genia Irizarry RN 08/31/24 12:40:
Spoke with Robert [facility] (cell [phone]); he confirms that they have the orders for the home O2, the script from PCP office is for O2 2L.
If patient needs alternate liter flow other than 2 L they will need a new script sent over prior to d/c. Robert is reading interventionist over weekend and can assist.
Plan contact [facility] on day of d/c re; final liter flow and O2 delivery.
Plan home with Home O2 and [facility].
Original Note:
Patient with Hx lung cancer and shingles with Dx GIB. O2 5L. Receiving IV & PO Abx. PT recommends SNF vs HH, OT recommends HH + support.
Spoke with patient's Lynnette;
expressed concerns patient needing O2 5L - provided reassurance patient's are able to go home with 5L O2.
states that the PCP office arranged home concentrator and portable O2 through [facility]- it will be delivered to home when ready for d/c.
Provided update [facility] accepted referral.
Spoke with Sarah Jones [facility]; he will check and see if he has the orders for home O2 and also check max liter flow of the concentrator.
Plan contact [facility] on day of d/c re; O2 delivery.
Plan home with Home O2 and [facility].
--- NOTE | 2024-08-31 14:30 | W.PN.HOSP.TC ---
Today's Communication/Plan
-
initiated abx
pulm consulted
f/u blood cultures
Assessment / Plan
Assessment / Plan
Physical Exam
General: Well Developed, Well Nourished, No Apparent Distress and Other (Appears pale)
HEENT: NormoCephalic, Anicteric, Moist mucous membranes, Atraumatic and Oxygen (Nasal Cannula)
Respiratory: Clear and Non Labored Respirations; No Wheezes, Rales or Rhonchi
Cardiac: S1/S2, Regular Rhythm and Tachycardia (Slightly); No Murmur
GI: Soft and Non Tender
Rectal: Deferred by Provider
Musculoskeletal: No Clubbing, No Cyanosis and No Edema
Skin: Warm and Dry; No Rash
Neuro: Awake, Alert, Oriented and Nonfocal/grossly intact
Psych: Calm
Symptomatic Anemia
-i suspect with elev ferritin levels and mass - issue of anemia of chronic disease
--Transfuse 2 units PRBCs
-Trend serial Hgb
-EGD without active bleed, F/u EGD outpt
-PPI
-GI recs appreciated
-f/u tsh - WNL
#Shortness of breath
#Lung Opacities
#Multifocal Pneumonia
#?Pulmonary Abscess
-related to symptomatic anemia and possible underlying pulm issue
-f/u ct imaging - multifocal pneumonia +/- abscess
-Pulm consulted
-initiated on vanc, (f/u mrsa swab), cefepime, flagyl
Elevated Troponin, suspect Type II PR due to demand ischemia in setting of severe anemia
-Continue to trend troponin
Hyponatremia, mild
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
Continue to trend
COPD, no acute exacerbation
-Continue Breztri
-Continue albuterol prn
-Wean prednisone twice a day to daily
Lung Cancer s/p Proton Therapy
-Patient reports known right upper lobe lung cancer, and known left lower lung mass which is non-cancerous
-repeat chest imaging
Hyperlipidemia
-Resume atorvastatin when able to resume diet
DVT proph: SCDs for today until hemoglobin ensured to be stable
Code Status: Full Code
Total time spent on today's encounter was 51 minutes which included time spent in counseling the patient/family regarding diagnosis and treatment plan as listed above, goals of care, and symptom management. Case was discussed with nursing staff,
specialists, and care coordinators/case management. All labs and imaging personally reviewed by me. Remainder the time spent in detailed review of previous records, lab data, imaging, and other medical provider documentation.
Anticipated Discharge: > 48 hours
Subjective/Interval History
-
Date of Service: August 31, 2024
Still short of breath
Objective Data
-
Labs:
Laboratory Results
08/31/24
03:54
WBC 13.3 H
Hgb 7.9 L
Hct 23.0 L
Plt Count 219
Vital Signs:
Vital Signs
Temp Pulse Resp BP Pulse Ox
98.4 F 127 29 119/68 92
08/31/24 11:12 08/31/24 10:00 08/31/24 10:00 08/31/24 10:00 08/31/24 10:00
I&O
08/30/24 08/31/24 09/01/24
06:59 06:59 06:59
Intake Total 500 / 500 2650 / 2650
Output Total 2650 / 2650
Balance 500 / 500 0 / 0
Review of Systems
-
History Source: Patient
All other systems: Not reviewed unless documented
Data Reviewed
-
Diagnostic Radiology: Report Reviewed by me
CT Scan: Report Reviewed by me
Labs: Labs Reviewed by me
--- NOTE | 2024-08-31 14:59 | PHA.VAN.IN ---
Assessment
- Assessment
Renal Function: Appears similar to baseline
Concomitant Antimicrobials: cefepime, metronidazole
AUC Dosing Plan
- Dosing Variables
Dosing Weight (kg): 56
Dosing CrCl (ml/min): 60
Vd coefficient (L/kg): 0.7
- Empiric Dosing
Maintenance Regimen: Vanc 1000mg Q24H - first dose now then 09/01 06 in lieu of load
Estimated AUC (mcg*h/mL): 490
Estimated Peak (mcg*h/mL): 35.1
Estimated Trough (mcg/ml): 10.4
Estimated Half Life (H): 12.8
- Monitoring
No levels ordered at this time: consider levels in next few days
Pharmacokinetics Vancomycin I
- -
Patient Age: 78
Patient Sex: Male
Vancomycin Day #: 1
Indication: Pulmonary/Respiratory
Requesting Provider: Dr. Enrique
Pertinent Antimicrobial Allergies:
NKDA
Height / Weight:
Height 5 ft 4 in
Actual Weight 56.1 kg
Pertinent Past Medical History: Lung cancer
- Vital Signs / Lab Results
Temp Pulse Resp BP Pulse Ox
98.4 F 127 29 119/68 92
08/31/24 11:12 08/31/24 10:00 08/31/24 10:00 08/31/24 10:00 08/31/24 10:00
Lab Results - Hematology
08/29/24 08/30/24 08/31/24
11:38 05:32 00:01
WBC 18.4 H 12.4 H 13.9 H
08/31/24
03:54
WBC 13.3 H
Lab Results - Chemistry
08/29/24 08/30/24 08/31/24
11:38 05:32 00:01
BUN 26 H 20 17
Creatinine 0.8 0.7 0.8
Estimated Creat Clear 61 70 60
Albumin 2.8 L
--- NOTE | 2024-08-31 15:03 | CON.PUL ---
Consultation
Consultation Request
Date/Time Consultation Requested: 08/31/24
Date/Time Consultation Performed: 08/31/24
Performing Provider: Cam
Reason for Consultation: COPD
Medical History
-
History of Present Illness:
Patient is a 78-year-old male with previous history of COPD, squamous cell carcinoma of the lung, hyperlipidemia presenting to the ER with shortness of breath. He notes that he has had progressive decline of his shortness of breath in the past
few weeks. He also reports generalized weakness, dizziness. He was recently placed on a course of oral steroids for his lungs but he did not feel any difference in his complaints. He was admitted on 08/29/2024, had admission CT demonstrating
smaller size of known right lower lobe tumor but with new bilateral interstitial and airspace opacities suggesting pneumonia. He has been placed on antibiotics and resumed on steroid taper. He does not feel significant improvement in his
complaints. He was recently treated with antibiotics at other institutions as recently as beginning of August. His last chemo treatment was 2022, he underwent proton therapy at [place] in March. He otherwise has been off chemo and radiation
treatment in the past year.
Follows with Dr. Sanders in the office, last PFT with moderate obstruction and moderately reduced diffusing capacity. He is maintained on Breztri.
Past Medical History
Past Medical History: Other (see list below)
Social History
Tobacco: Former Smoker
Alcohol: None
Drug: None
Family History
Family History: Reviewed & Not Pertinent
Allergies / Home Medications
Allergies
Allergy/AdvReac Type Severity Reaction Status Date / Time
No Known Allergies Allergy Verified 08/29/24 11:19
Home Medications
�Medication �Instructions �Recorded �Confirmed �Last Taken �Type
budesonide 160 mcg-glycopyr 9 2 inh inhalation R BID 10/01/22 08/29/24 06/18/24 History
mcg-formot 4.8 mcg/actuation HFA
inhaler (Breztri Aerosphere)
latanoprost 0.005 % eye drops 1 drp BOTH EYES HS 10/01/22 08/29/24 2 Days Ago History
~08/27/24
atorvastatin 20 mg tablet 20 mg PO HS 12/17/23 08/29/24 2 Weeks Ago History
~08/15/24
ibuprofen 200 mg tablet 400 mg PO Q6HPRN PRN mild Pain 12/17/23 08/29/24 08/28/24 History
albuterol sulfate 90 mcg/actuation 2 puff inhalation R Q6HPRN PRN sob 08/29/24 08/29/24 Unknown History
aerosol inhaler
gabapentin 300 mg capsule 300 mg PO BIDPRN PRN shingles 08/29/24 08/29/24 08/29/24 History
prednisone 10 mg tablet 10 mg PO BID 08/29/24 08/29/24 08/29/24 History
Review of Systems
-
History Source: Patient
All other systems: Negative unless noted
Vitals / Labs / Diagnostic Testing
Vital Signs
Temp Pulse Resp BP Pulse Ox
98.4 F 127 29 119/68 92
08/31/24 11:12 08/31/24 10:00 08/31/24 10:00 08/31/24 10:00 08/31/24 10:00
Lab Data
08/31/24 03:54
08/31/24 00:01
Diagnostic Testing:
Physical Exam
-
HEENT: Normocephalic, Anicteric and Moist Mucous Membranes
Cardiovascular: S1/S2 and Regular Rhythm
Respiratory: Wheeze (R) and Non-Labored Respirations
GI: Soft, Non Distended and Non Tender
Neurology: Awake, Alert, Oriented and No Motor Deficits
Skin: Warm, Dry and Good Color
General: Comfortable and Other (NAD)
Assessment
-
Patient is a 78-year-old male with previous history of COPD, squamous cell carcinoma of the lung, hyperlipidemia presenting to the ER with shortness of breath. He notes that he has had progressive decline of his shortness of breath in the past
few weeks. He also reports generalized weakness, dizziness. He was recently placed on a course of oral steroids for his lungs but he did not feel any difference in his complaints. He was admitted on 08/29/2024, had admission CT demonstrating
smaller size of known right lower lobe tumor but with new bilateral interstitial and airspace opacities suggesting pneumonia. He has been placed on antibiotics and resumed on steroid taper. He does not feel significant improvement in his
complaints. He was recently treated with antibiotics at other institutions as recently as beginning of August. His last chemo treatment was 2022, he underwent proton therapy at [place] in March. He otherwise has been off chemo and radiation
treatment in the past year.
Acute on chronic SOB
Worsening CT, suspect PNA
Anemia Hb 5.0
Hyponatremia
Hypocalcemia
Iron deficiency
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
PNA
Bradycardia
Panlobular emphysema
Paroxysmal nocturnal dyspnea
COPD, follows with Tommy
Moderate obstruction on PFTs
Maintained on Breztri
Squamous cell lung cancer, RLL
L inguinal hernia
Recent COVID-19 (04/2024)
Hernia surgery right
Appendectomy
Mastoid surgery as baby
Cataracts bilateral
Robotic asst lap repair left inguinal hernia with mesh ([facility]) 06/2024
Plan
Hypoxemia noted on arrival, placed on 3L satting 93%, now on 5L satting 94%
No oxygen was needed prior to admission, was not on at home
Home O2 evaluation eventually
Prior history of lung disease is noted including COPD/emphysema
Follows at [facility], last PFT with moderate obstruction and moderate diffusion impairment
Recently treated with prednisone taper and antibiotics
Suspect patient has superimposed pneumonia, was treated recently with IV antibiotics
He is resumed on IV empiric course
CXR/CT obtained and reviewed with broad differential diagnosis but need to rule out concurrent heart failure, aspiration, infection
I do feel some of the findings are suggestive of lymphangitic spread given apical septal appearance
We did discuss about the possibility of worsening malignancy if he should not respond to any treatment protocols
I do not feel this is COPD exacerbation
He had been treated with a recent course of prednisone but did not feel any improvement
Agree with stopping steroids
Has history of squamous cell carcinoma, last PET scan and treatment in 2022
proBNP 1820
Prior ECHO results are reviewed indicating normal function
There could be a mild component of volume overload but I doubt that this is the primary etiology
Anemia as noted on admission, given 2 units
Underwent upper endoscopy showing esophageal ulcers with no bleeding and no stigmata, 2 cm hiatal hernia, congestive gastropathy, nonbleeding duodenal ulcers
Plan for treatment with PPI
Aspiration could be a possibility, will obtain speech evaluation
Worsening malignancy is a possibility, may need to discuss goals of care if this is confirmed
I will repeat his imaging in the next 48 hours to determine if there is any improvement
Will need outpatient pulmonary evaluation in our office for PFTs and 6MWT
Reviewed with patient
We will follow
Diagnostic Data
Chest X-Ray: 08/29/24- Opacification of the right lung base in part secondary to the patient's known right lower lobe lung cancer, with suspicion for accompanying postobstructive atelectasis or pneumonia. New opacity in the mid to lower left lung,
which may represent malignancy or pneumonia. No pneumothorax or large pleural effusion. The cardiomediastinal silhouette is stable. Chronic degenerative changes of the spine.
12/21/23- Mass projects over the right lung base, also seen on prior CT dated 12/15/2023. No large pleural effusion on either side.
CT Scan: CHEST 08/31/24- 1. Interval decrease in size of previously seen mass at the base of the right lower lobe.
2. New bilateral interstitial and airspace opacities with numerous subcentimeter nodular opacities, findings most likely related to pneumonia. Associated with this, there is added airspace consolidation in the right upper lobe which measures up to
2.9 cm in diameter. Most likely related to infection however mass not definitively excluded, recommend follow-up to resolution. There is also dense airspace consolidation in the lingula which measures up to 7.5 cm in diameter most likely related to
pneumonia. Within this consolidation, there is 1.9 cm probable pulmonary abscess as above.
3. Very small bilateral pleural effusions, right greater than left.
4. Mediastinal lymphadenopathy, new as compared with previous.
5. Coronary and aortic atherosclerosis.
12/15/23- 1. 4.8 x 4.8 x 3.5 cm irregular soft tissue mass within the RIGHT lower lobe abutting the diaphragm with spiculated margins compatible with patient's known primary lung cancer. No definitive evidence for metastatic disease within the
chest. Nonspecific 8.7 mm nodule within the lateral right upper lobe which on retrospective review did not appear to be FDG avid on the PET/CT from 12/04/2023.
2. Mild to moderate centrilobular emphysema within the upper lobes.
3. Densely calcified coronary arteries.
Echo: 09/09/22- 1. Normal left ventricular size and function, EF 55-60%
2. Thickened mitral leaflets with trace mitral regurgitation, mitral chordal calcification, and normal left atrium
3. Aortic sclerosis without stenosis or regurgitation
4. Normal right heart with normal pulmonary artery pressure
There are no prior studies available for comparison.
PFT's:
Reports and relevant images were personally reviewed.
Total time spent on this consultation __76__ minutes which includes review of history, physical exam, medications, laboratory data, personal review of imaging, extensive review of outpatient records, discussion with care team and respiratory therapy.
--- NOTE | 2024-08-31 16:21 | PTOTSP ---
Speech Therapy Evaluation:
Pt presents with grossly functional oropharyngeal swallow at bedside. No overt s/sx of aspiration across trials, however risk of aspiration and related pulmonary complications elevated given hx of lung cancer, compounded by multifocal pneumonia. Pt
also at increased risk of post-prandial aspiration given known esophageal component with recent EGD showing esophageal ulcers and hiatal hernia.
Recommend:
1. Continue regular solids and thin liquids
2. Medications as tolerated
3. General aspiration and reflux precautions
4. DIE HARDENER to follow to monitor tolerance of diet and determine if pt would benefit from instrumental assessment
[2024-08-31] MEDS: VANCOCIN 200 IV (16:58)
[2024-08-31] MEDS: NEURONTIN 300 MG PO (17:08)
[2024-08-31] MEDS: TYLENOL 650 MG PO (17:08)
[2024-08-31] MEDS: FLAGYL 500 MG 100 IV (18:02)
[2024-08-31] MEDS: MAXIPIME 2000 MG IV (18:02)
--- NOTE | 2024-08-31 18:44 | PTCARENOTE ---
C/o intense / pain left neck and shoulder area (had recent shingles) PRN Gabapentin and Tylenol administered with good relief - now /10 tolerable. Denies dyspnea currently but remains on 5L NC sao2 94%. IV antibx given as ordered. Not
drinking much- encouraged water. Adequate urine out put.
[2024-09-01] VITALS (14 sets, daily range): BP systolic 96–130; BP diastolic 48–93; PULSE 105; O2SAT 92–93; BMI 20.8
[2024-09-01] MEDS: TYLENOL 650 MG PO ×5 (01:19→23:18)
[2024-09-01] MEDS: NEURONTIN 300 MG PO ×3 (01:19→19:11)
[2024-09-01] MEDS: MAXIPIME 2000 MG IV ×3 (01:21→17:16)
[2024-09-01] MEDS: STERILE WATER FOR INJECTION 10 ML IV ×3 (01:21→17:16)
[2024-09-01 05:10] LABS: Hemoglobin 7.8 g/dL (13.0-18.0); Mean Corp Hgb Conc. 33.9 g/dL (33.0-37.0); Mean Corpuscular Hgb 29.9 pg (27.0-31.0); Mean Corpuscular Volume 88.1 fL (80.0-94.0); Mean Platelet Volume 9.4 fL (7.4-10.4); Platelet Count 207 10^3/uL (130-400); Red Blood Cell Count 2.61 10^6/uL (4.70-6.10); Red Cell Dist. Width 16.9 % (11.5-14.5); White Blood Cell Count 11.1 10^3/uL (4.8-10.8)
[2024-09-01] MEDS: FLAGYL 500 MG 100 IV ×2 (05:26→17:16)
[2024-09-01 05:30] LABS: ALT (SGPT) 58 U/L (0-50); AST (SGOT) 47 U/L (17-59); Albumin 2.3 g/dl (3.5-5.0); Alkaline Phosphatase 91 U/L (38-126); Blood Urea Nitrogen 21 mg/dl (9-20); Calcium 7.6 mg/dl (8.4-10.2); Carbon Dioxide 22 mmol/L (22-30); Chloride 109 mmol/L (98-107); Estimated Creatinine Clearance 68 ml/min; Glucose 104 mg/dl (70-99); Potassium 3.8 mmol/L (3.5-5.1); Sodium 135 mmol/L (135-145); Total Bilirubin 0.7 mg/dl (0.2-1.3); Total Protein 4.8 g/dl (6.3-8.2); eGFR > 60.00
[2024-09-01] MEDS: MORPHINE SULFATE 2 MG IV ×4 (05:31→23:33)
[2024-09-01] MEDS: VANCOCIN 200 IV (06:32)
--- NOTE | 2024-09-01 06:37 | PTCARENOTE ---
No acute events overnight. Remains on 5 liters. PRN morphine given for dyspnea and prn gabapentin + tylenol for pain.
[2024-09-01] MEDS: SPIRIVA RESPIMAT 2.5 MCG 2 PUFF INH (07:32)
[2024-09-01] MEDS: SYMBICORT 160/4.5 MCG INHALER 2 PUFF INH ×2 (07:33→20:26)
--- NOTE | 2024-09-01 08:28 | PN.CDI ---
CDI
- -
CDI:
Physician Documentation Request
Admit Date: 08/29/24 14:30
Dear Doctor Iva,
Please review the following and provide your response in the progress notes.
Clinical Indicators:
The diagnosis of gi bleed was documented on 08/29 H&P but is not consistently noted in subsequent documentation.
- 08/29 H&P 'Symptomatic Acute Blood Loss Anemia secondary to GI Bleed'
- 'Upper GI Bleed likely secondary to NSAIDs and steroids'
- 08/31 PN 'Symptomatic Anemia...EGD without active bleed'
- 08/30 EGD 'Non-bleeding duodenal ulcers with a flat pigmented spot (Harinder Class IIc)'
-New medication Pantoprozole changed from IV to PO
Please clarify the following:
____ - GI bleed was present on admission and is now resolved.
____ - GI bleed was ruled out
____ - GI bleed is still a likely, suspected, probable diagnosis
____ - Other
Use of terms such as suspected, likely, concern for, or probable (associated with a specific diagnosis that is being evaluated, monitored, or treated as if it exists) are acceptable and can be coded in the inpatient setting, when documented at the
time of discharge.
Thank you,
Jocelyn Garcia RN
CDI Specialist
Please use your independent medical judgment in providing your response.
--- NOTE | 2024-09-01 08:32 | PHA.VAN.FU ---
Vancomycin Assessment / Plan
- Assessment
Renal Function: Stable
WBC's are: Trending Down
In the past 24 hrs, patient has been: Afebrile
Concomitant Antimicrobials: cefepime, metronidazole
- Dosing Plan
Continue: Vanc 1000mg Q24H
- Monitoring Plan
No level(s) ordered at this time: consider levels in next few days
- Follow Up
Pharmacy will continue to follow.
Vancomycin Follow UP
- -
Patient Age: 78
Patient Sex: Male
Vancomycin Day #: 2
Indication: Pulmonary/Respiratory
Requesting Provider: Dr. Enrique
Pertinent Antimicrobial Allergies:
NKDA
Height / Weight:
Height 5 ft 4 in
Actual Weight 54.9 kg
Pertinent Past Medical History: Lung cancer
- Vital Signs / Lab Results
Temp Pulse Resp BP Pulse Ox
97.8 F 90 18 114/64 93
09/01/24 07:35 09/01/24 07:36 09/01/24 07:36 09/01/24 06:00 09/01/24 07:36
Lab Results - Hematology
08/29/24 08/30/24 08/31/24
11:38 05:32 00:01
WBC 18.4 H 12.4 H 13.9 H
08/31/24 09/01/24
03:54 04:54
WBC 13.3 H 11.1 H
Lab Results - Chemistry
08/29/24 08/30/24 08/31/24
11:38 05:32 00:01
BUN 26 H 20 17
Creatinine 0.8 0.7 0.8
Estimated Creat Clear 61 70 60
Albumin 2.8 L
09/01/24
04:53
BUN 21 H
Creatinine 0.7
Estimated Creat Clear 68
Albumin 2.3 L
--- NOTE | 2024-09-01 08:34 | PN.CDI ---
CDI
- -
CDI:
Physician Documentation Request
Admit Date: 08/29/24 14:30
Dear Doctor Iva,
Please review the following and provide your response in the progress notes.
Clinical Indicators:
- On admission: WBC 18.4, HR 100-110s,
- 08/31 PN 'Multifocal Pneumonia...?pulmonary abscess'
- 08/29 CXR 'Opacification of the right lung base...suspicion for accompanying postobstructive atelectasis or pneumonia'
- 08/30 CXR 'Slight interval increase in reticulonodular opacities...suggesting interval increase in pneumonia'
- 08/31 CT chest 'New bilateral interstitial and airspace opacities ...most likely related to pneumonia'
- ' probable pulmonary abscess'
Please clarify which of the following most accurately describes the status of the patient's infection:
Sepsis due to pneumonia
Localized Infection Only, Without Systemic Illness
- indicate the site/source, such as UTI, pneumonia etc.
Other
Use of terms such as suspected, likely, concern for, or probable (associated with a specific diagnosis that is being evaluated, monitored, or treated as if it exists) are acceptable and can be coded in the inpatient setting, when documented at the
time of discharge.
Thank you,
Jocelyn Garcia RN
CDI Specialist
Please use your independent medical judgment in providing your response.
[2024-09-01] MEDS: DELTASONE 10 MG PO (08:36)
[2024-09-01] MEDS: PROTONIX 40 MG PO ×2 (08:36→19:12)
--- NOTE | 2024-09-01 08:43 | PN.CDI ---
CDI
- -
CDI:
Physician Documentation Request
Admit Date: 08/29/24 14:30
Dear Doctor Iva,
Please review the following and provide your response in the progress notes.
Clinical Indicators:
- 08/29 ER Physician 'presents to the emergency department for evaluation of shortness of breath and hypoxemia'
- 08/31 Pulmonary 'Hypoxemia noted on arrival, placed on 3L satting 93%, now on 5L satting 94%'
- 'No oxygen was needed prior to admission'
- 08/31 pulse ox 86-87%, placed on 5L O2 - 91-92%
Please clarify which of the following accurately represents the patient's respiratory status:
Acute hypoxic respiratory failure
Hypoxia
Other
Additional information for Respiratory Failure:
Recognized criteria for Respiratory Failure (Source: [facility] Hospitalist Feb 2013)
ABGs: (1 or more) Symptoms Please indicate type if known
1. p)2 <60 or RA SPO2 <91% on RA 1. Tachypnea, SOB, dyspnea Hypoxic
2. pCO2 50 and pH <7.35 2. Use of accessory muscles Hypercapnic
3. pO2 decrease of pCO2 increase by 3. Pallor or cyanosis Hypoxic and Hypercapnic
10 mmHg from baseline if known 4. Anxiety or restlessness Unable to determine
5. Unable to speak in full sentences
Supplemental O2 of > 40% (5LPM) Intubation is not required
Use of terms such as suspected, likely, concern for, or probable (associated with a specific diagnosis that is being evaluated, monitored, or treated as if it exists) are acceptable and can be coded in the inpatient setting, when documented at the
time of discharge.
Thank you,
Jocelyn Garcia RN
CDI Specialist
Please use your independent medical judgment in providing your response.
--- NOTE | 2024-09-01 10:34 | W.PN.PUL3 ---
Today's Communication / Plan
-
Not significantly improved today, remains on abx, off steroids
Will repeat CXR in AM
Speech eval, will obtain VSE for completeness
PT/OT, rehab would be beneficial
Assessment
-
Patient is a 78-year-old male with previous history of COPD, squamous cell carcinoma of the lung, hyperlipidemia presenting to the ER with shortness of breath. He notes that he has had progressive decline of his shortness of breath in the past
few weeks. He also reports generalized weakness, dizziness. He was recently placed on a course of oral steroids for his lungs but he did not feel any difference in his complaints. He was admitted on 08/29/2024, had admission CT demonstrating
smaller size of known right lower lobe tumor but with new bilateral interstitial and airspace opacities suggesting pneumonia. He has been placed on antibiotics and resumed on steroid taper. He does not feel significant improvement in his
complaints. He was recently treated with antibiotics at other institutions as recently as beginning of August. His last chemo treatment was 2022, he underwent proton therapy at [facility] in March. He otherwise has been off chemo and radiation
treatment in the past year.
Acute on chronic SOB
Worsening CT, suspect PNA vs lymphangitic spread
Anemia Hb 5.0
Hyponatremia
Hypocalcemia
Iron deficiency
Conditions present [employer]
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
PNA
Bradycardia
Panlobular emphysema
Paroxysmal nocturnal dyspnea
COPD, follows with [facility]
Moderate obstruction on PFTs
Maintained on Breztri
Squamous cell lung cancer, RLL
L inguinal hernia
Recent COVID-19 (04/2024)
Hernia surgery right
Appendectomy
Mastoid surgery as baby
Cataracts bilateral
Robotic asst lap repair left inguinal hernia with mesh ([facility]) 06/2024
Plan
Hypoxemia noted on arrival, placed on 3L satting 93%, now on 5L satting 94%
No oxygen was needed prior to admission, was not on at home
Home O2 evaluation eventually
Prior history of lung disease is noted including COPD/emphysema
Follows at [facility], last PFT with moderate obstruction and moderate diffusion impairment
Recently treated with prednisone taper and antibiotics
Suspect patient has superimposed pneumonia, was treated recently with IV antibiotics
He is resumed on IV empiric course
CXR/CT obtained and reviewed with broad differential diagnosis but need to rule out concurrent heart failure, aspiration, infection
I do feel some of the findings are suggestive of lymphangitic spread given apical septal appearance
We did discuss about the possibility of worsening malignancy if he should not respond to any treatment protocols
I do not feel this is COPD exacerbation
He had been treated with a recent course of prednisone but did not feel any improvement
Agree with stopping steroids
Has history of squamous cell carcinoma, last PET scan and treatment in 2022
proBNP 1820
Prior ECHO results are reviewed indicating normal function
There could be a mild component of volume overload but I doubt that this is the primary etiology
Anemia as noted on admission, given 2 units
Underwent upper endoscopy showing esophageal ulcers with no bleeding and no stigmata, 2 cm hiatal hernia, congestive gastropathy, nonbleeding duodenal ulcers
Plan for treatment with PPI
Aspiration could be a possibility, appreciate speech eval
VSE
Worsening malignancy is a possibility, may need to discuss goals of care if this is confirmed
I will repeat his imaging in the next 48 hours to determine if there is any improvement
Will need outpatient pulmonary evaluation in our office for PFTs and 6MWT
Reviewed with patient
Diagnostic Data
Chest X-Ray: 08/29/24- Opacification of the right lung base in part secondary to the patient's known right lower lobe lung cancer, with suspicion for accompanying postobstructive atelectasis or pneumonia. New opacity in the mid to lower left lung,
which may represent malignancy or pneumonia. No pneumothorax or large pleural effusion. The cardiomediastinal silhouette is stable. Chronic degenerative changes of the spine.
12/21/23- Mass projects over the right lung base, also seen on prior CT dated 12/15/2023. No large pleural effusion on either side.
CT Scan: CHEST 08/31/24- 1. Interval decrease in size of previously seen mass at the base of the right lower lobe.
2. New bilateral interstitial and airspace opacities with numerous subcentimeter nodular opacities, findings most likely related to pneumonia. Associated with this, there is added airspace consolidation in the right upper lobe which measures up to
2.9 cm in diameter. Most likely related to infection however mass not definitively excluded, recommend follow-up to resolution. There is also dense airspace consolidation in the lingula which measures up to 7.5 cm in diameter most likely related to
pneumonia. Within this consolidation, there is 1.9 cm probable pulmonary abscess as above.
3. Very small bilateral pleural effusions, right greater than left.
4. Mediastinal lymphadenopathy, new as compared with previous.
5. Coronary and aortic atherosclerosis.
12/15/23- 1. 4.8 x 4.8 x 3.5 cm irregular soft tissue mass within the RIGHT lower lobe abutting the diaphragm with spiculated margins compatible with patient's known primary lung cancer. No definitive evidence for metastatic disease within the
chest. Nonspecific 8.7 mm nodule within the lateral right upper lobe which on retrospective review did not appear to be FDG avid on the PET/CT from 12/04/2023.
2. Mild to moderate centrilobular emphysema within the upper lobes.
3. Densely calcified coronary arteries.
Echo: 09/09/22- 1. Normal left ventricular size and function, EF 55-60%
2. Thickened mitral leaflets with trace mitral regurgitation, mitral chordal calcification, and normal left atrium
3. Aortic sclerosis without stenosis or regurgitation
4. Normal right heart with normal pulmonary artery pressure
There are no prior studies available for comparison.
PFT's:
Reports and relevant images were personally reviewed.
Total time spent on this consultation __56__ minutes which includes review of history, physical exam, medications, laboratory data, personal review of imaging, extensive review of outpatient records, discussion with care team and respiratory therapy.
Subjective Data
-
Date of Service:
Date of Service: September 01, 2024
Chief Complaint: Pulmonary Follow Up
Subjective:
Not significantly improved, remains SOB
at bedside
Objective Data
Data Reviewed
Vital Signs / I&O / Oxygen:
Vital Signs
Temp Pulse Resp BP Pulse Ox
97.8 F 97 20 123/64 93
09/01/24 07:35 09/01/24 08:00 09/01/24 08:00 09/01/24 08:00 09/01/24 07:36
Intake and Output
08/31/24 09/01/24 09/02/24
06:59 06:59 06:59
Intake Total 2650 / 2650 530 / 530
Output Total 2650 / 2650 675 / 675
Balance 0 / 0 -145 / -145
SaO2 93
Nasal Cannula flow liters per 4
minute
Physical Exam
General: Comfortable and Other (NAD)
HEENT: Normocephalic, Anicteric and Moist Mucous Membranes
Cardiovascular: S1-S2 and Regular Rhythm
Respiratory: Crackles and Non-Labored Respirations
GI: Soft, Non Distended and Non Tender
Neurology: Awake, Alert, Oriented and No Motor Deficits
Skin: Warm, Dry and Good Color
Labs/Micro/Reports
Lab Data
09/01/24 04:54
09/01/24 04:53
--- NOTE | 2024-09-01 14:25 | W.PN.HOSP.TC ---
Addendum entered and electronically signed by Joe Enrique MD 09/01/24 15:39:
Acute hypoxic respiratory failure
Sepsis due to pneumonia
#GI bleed unlikely after EGD, although difficult to be certain at this time; Anemia may be related to chronic disease
Original Note:
Today's Communication/Plan
-
abx
repeat imaging in 24-48 hours
stop steroids
trial hsq
Assessment / Plan
Assessment / Plan
Physical Exam
General: Well Developed, Well Nourished, No Apparent Distress and Other (Appears pale)
HEENT: NormoCephalic, Anicteric, Moist mucous membranes, Atraumatic and Oxygen (Nasal Cannula)
Respiratory: Clear and Non Labored Respirations; No Wheezes, Rales or Rhonchi
Cardiac: S1/S2, Regular Rhythm and Tachycardia (Slightly); No Murmur
GI: Soft and Non Tender
Rectal: Deferred by Provider
Musculoskeletal: No Clubbing, No Cyanosis and No Edema
Skin: Warm and Dry; No Rash
Neuro: Awake, Alert, Oriented and Nonfocal/grossly intact
Psych: Calm
Symptomatic Anemia
-i suspect with elev ferritin levels and mass - issue of anemia of chronic disease
--Transfuse 2 units PRBCs
-Trend serial Hgb
-EGD without active bleed, F/u EGD outpt
-PPI
-GI recs appreciated
-f/u tsh - WNL
#Shortness of breath
#Lung Opacities
#Multifocal Pneumonia
#?Pulmonary Abscess v lymphangitic spread
-related to symptomatic anemia and possible underlying pulm issue
-f/u ct imaging - multifocal pneumonia +/- abscess
-Pulm consulted
-initiated on vanc, (f/u mrsa swab), cefepime, flagyl
�Repeat imaging to assess improvement within 24 to 48 hours
Elevated Troponin, suspect Type II NM due to demand ischemia in setting of severe anemia
-Continue to trend troponin
Hyponatremia, mild
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
Continue to trend
COPD, no acute exacerbation
-Continue Breztri
-Continue albuterol prn
Lung Cancer s/p Proton Therapy
-Patient reports known right upper lobe lung cancer, and known left lower lung mass which is non-cancerous
-repeat chest imaging
-stop steroids (was receiving since June)
Hyperlipidemia
-Resume atorvastatin when able to resume diet
DVT proph: Trial hsq
Code Status: Full Code
Total time spent on today's encounter was 51 minutes which included time spent in counseling the patient/family regarding diagnosis and treatment plan as listed above, goals of care, and symptom management. Case was discussed with nursing staff,
specialists, and care coordinators/case management. All labs and imaging personally reviewed by me. Remainder the time spent in detailed review of previous records, lab data, imaging, and other medical provider documentation.
Anticipated Discharge: > 48 hours
Subjective/Interval History
-
Date of Service: September 01, 2024
still sob, with chills this am
Objective Data
-
Labs:
Laboratory Results
09/01/24 09/01/24
04:53 04:54
WBC 11.1 H
Hgb 7.8 L
Hct 23.0 L
Plt Count 207
Sodium 135
Potassium 3.8
Chloride 109 H
Carbon Dioxide 22
BUN 21 H
Creatinine 0.7
Glucose 104 H
Calcium 7.6 L
Total Bilirubin 0.7
AST 47
ALT 58 H
Alkaline Phosphatase 91
Vital Signs:
Vital Signs
Temp Pulse Resp BP Pulse Ox
98.5 F 118 22 118/56 94
09/01/24 11:30 09/01/24 12:00 09/01/24 12:00 09/01/24 12:00 09/01/24 12:00
I&O
08/31/24 09/01/24 09/02/24
06:59 06:59 06:59
Intake Total 2650 / 2650 530 / 530
Output Total 2650 / 2650 675 / 675
Balance 0 / 0 -145 / -145
Review of Systems
-
History Source: Patient
All other systems: Not reviewed unless documented
Data Reviewed
-
Diagnostic Radiology: Report Reviewed by me
CT Scan: Report Reviewed by me
Labs: Labs Reviewed by me
[2024-09-01] MEDS: HEPARIN 5000 UNITS SC (19:12)
[2024-09-02] VITALS (16 sets, daily range): BP systolic 92–134; BP diastolic 51–76; PULSE 158; BMI 21.7
--- NOTE | 2024-09-02 01:12 | W.PN.UPDATE ---
Update Note
Progress Note Update
RN repots patient agitated, cursing and screaming out 'I want to be euthanized'. patient seen and evaluated. Patient is Ox3, looks anxious, admits to being agitated and irritated with all the pain he is having. C/o pain at his shingles site Left
shoulder, headaches. Offered pain medications and patient refused. Also reports feeling down lately being in the hospital. Patient is okay to take Ativan at this time as he feels agitated and upset. Ativan o.5mg POx1, stable VS.
RN also reports patient hasn't voided yet. will order bladder scan, UA.
hgb 7.3 this AM, type and screen, blood consent in chart, will transfuse 1 unit PRBC
[2024-09-02] MEDS: STERILE WATER FOR INJECTION 10 ML IV ×3 (01:23→17:11)
[2024-09-02] MEDS: ATIVAN 0.5 MG PO (01:23)
[2024-09-02] MEDS: MAXIPIME 2000 MG IV ×3 (01:23→17:11)
--- NOTE | 2024-09-02 04:30 | PTCARENOTE ---
Patient agitated, anxious, and cursing out into the hallway overnight. Patient stated he 'wants to be euthanized, I am done living with this pain.' call out operator provider made aware and ordered 1x dose ativan and UA. Emotional support provided. Remains on
3 liters NC. PRN morphine given for dyspnea and tylenol + gabapentin for pain.
[2024-09-02 04:40] LABS: Hemoglobin 7.3 g/dL (13.0-18.0); Mean Corp Hgb Conc. 33.2 g/dL (33.0-37.0); Mean Corpuscular Hgb 29.6 pg (27.0-31.0); Mean Corpuscular Volume 89.1 fL (80.0-94.0); Mean Platelet Volume 9.2 fL (7.4-10.4); Platelet Count 246 10^3/uL (130-400); Red Blood Cell Count 2.47 10^6/uL (4.70-6.10); Red Cell Dist. Width 16.2 % (11.5-14.5); White Blood Cell Count 10.4 10^3/uL (4.8-10.8)
[2024-09-02 05:17] LABS: ALT (SGPT) 50 U/L (0-50); AST (SGOT) 30 U/L (17-59); Albumin 2.3 g/dl (3.5-5.0); Alkaline Phosphatase 94 U/L (38-126); Blood Urea Nitrogen 24 mg/dl (9-20); Calcium 7.5 mg/dl (8.4-10.2); Carbon Dioxide 20 mmol/L (22-30); Chloride 110 mmol/L (98-107); Estimated Creatinine Clearance 68 ml/min; Glucose 101 mg/dl (70-99); Sodium 135 mmol/L (135-145); Total Bilirubin 0.6 mg/dl (0.2-1.3); Total Protein 4.7 g/dl (6.3-8.2); eGFR > 60.00
[2024-09-02] MEDS: FLAGYL 500 MG 100 IV ×2 (05:21→17:10)
[2024-09-02] MEDS: NEURONTIN 300 MG PO ×3 (05:25→19:56)
[2024-09-02] MEDS: MORPHINE SULFATE 2 MG IV ×6 (05:25→19:56)
[2024-09-02] MEDS: TYLENOL 650 MG PO ×2 (05:25→17:10)
--- NOTE | 2024-09-02 05:53 | PTCARENOTE ---
Am hgb 7.3. solution director provider made aware. Type and screen + 1 unit PRBCs ordered. Vat team up to place line and draw type and screen.
[2024-09-02 06:02] LABS: Urine Albumin 2+ (Neg - Trace); Urine Bilirubin Negative (Negative); Urine Character Clear (Clear); Urine Color Amber; Urine Glucose Negative (Negative); Urine Ketone Negative (Negative); Urine Leukocyte Negative (Negative); Urine Nitrite Negative (Negative); Urine Occult Blood Negative (Negative); Urine Urobilinogen Negative (Neg - 1+)
[2024-09-02 06:19] LABS: Urine Hyaline Cast 0-2 /LPF (0-2)
[2024-09-02 06:20] LABS: Urine Red Blood Cell None Seen /HPF (0-2); Urine White Cell 0-2 /HPF (0-5)
[2024-09-02] MEDS: SPIRIVA RESPIMAT 2.5 MCG 2 PUFF INH (07:41)
[2024-09-02] MEDS: SYMBICORT 160/4.5 MCG INHALER 2 PUFF INH ×2 (07:41→19:52)
[2024-09-02] MEDS: PROTONIX 40 MG PO ×2 (08:07→19:56)
[2024-09-02] MEDS: HEPARIN 5000 UNITS SC ×2 (08:07→19:57)
--- NOTE | 2024-09-02 10:16 | W.PN.PUL3 ---
Today's Communication / Plan
-
Repeat CXR today appears to be completely unchanged
He has not had response to steroids or antibiotics thus far
Progressive weakness/fatigue noted and ongoing
May consider CT imaging next week but I have suspicion for lymphangitic spread of cancer
Can consider Onc opinion
VSE planning per speech to r/o
Continue supportive care
Assessment
-
Patient is a 78-year-old male with previous history of COPD, squamous cell carcinoma of the lung, hyperlipidemia presenting to the ER with shortness of breath. He notes that he has had progressive decline of his shortness of breath in the past
few weeks. He also reports generalized weakness, dizziness. He was recently placed on a course of oral steroids for his lungs but he did not feel any difference in his complaints. He was admitted on 08/29/2024, had admission CT demonstrating
smaller size of known right lower lobe tumor but with new bilateral interstitial and airspace opacities suggesting pneumonia. He has been placed on antibiotics and resumed on steroid taper. He does not feel significant improvement in his
complaints. He was recently treated with antibiotics at other institutions as recently as beginning of August. His last chemo treatment was 2022, he underwent proton therapy at [place] in March. He otherwise has been off chemo and radiation
treatment in the past year.
Acute on chronic SOB
Worsening CT, suspect PNA vs lymphangitic spread
Anemia Hb 5.0
Hyponatremia
Hypocalcemia
Iron deficiency
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
PNA
Bradycardia
Panlobular emphysema
Paroxysmal nocturnal dyspnea
COPD, follows with Tommy
Moderate obstruction on PFTs
Maintained on Breztri
Squamous cell lung cancer, RLL
L inguinal hernia
Recent COVID-19 (04/2024)
Hernia surgery right
Appendectomy
Mastoid surgery as baby
Cataracts bilateral
Robotic asst lap repair left inguinal hernia with mesh ([facility]) 06/2024
Plan
Hypoxemia noted on arrival, placed on 3L satting 93%, now on 5L satting 94%
No oxygen was needed prior to admission, was not on at home
Home O2 evaluation eventually
Prior history of lung disease is noted including COPD/emphysema
Follows at [facility], last PFT with moderate obstruction and moderate diffusion impairment
Recently treated with prednisone taper and antibiotics
Suspect patient has superimposed pneumonia, was treated recently with IV antibiotics
He is resumed on IV empiric course
CXR/CT obtained and reviewed with broad differential diagnosis but need to rule out concurrent heart failure, aspiration, infection
I do feel some of the findings are suggestive of lymphangitic spread given apical septal appearance
We did discuss about the possibility of worsening malignancy if he should not respond to any treatment protocols
I do not feel this is COPD exacerbation
He had been treated with a recent course of prednisone but did not feel any improvement
Agree with stopping steroids
Has history of squamous cell carcinoma, last PET scan and treatment in 2022
proBNP 1820
Prior ECHO results are reviewed indicating normal function
There could be a mild component of volume overload but I doubt that this is the primary etiology
Anemia as noted on admission, given 2 units
Underwent upper endoscopy showing esophageal ulcers with no bleeding and no stigmata, 2 cm hiatal hernia, congestive gastropathy, nonbleeding duodenal ulcers
Plan for treatment with PPI
Aspiration could be a possibility, appreciate speech eval
VSE planning
Worsening malignancy is a possibility, may need to discuss goals of care if this is confirmed
I will repeat his imaging in the next 48 hours to determine if there is any improvement--no change, may need CT to confirm but suspect lymphangitic spread
Consider Onc consult for recommendations
Will need outpatient pulmonary evaluation in our office for PFTs and 6MWT
Reviewed with patient
Diagnostic Data
Chest X-Ray: 08/29/24- Opacification of the right lung base in part secondary to the patient's known right lower lobe lung cancer, with suspicion for accompanying postobstructive atelectasis or pneumonia. New opacity in the mid to lower left lung,
which may represent malignancy or pneumonia. No pneumothorax or large pleural effusion. The cardiomediastinal silhouette is stable. Chronic degenerative changes of the spine.
12/21/23- Mass projects over the right lung base, also seen on prior CT dated 12/15/2023. No large pleural effusion on either side.
CT Scan: CHEST 08/31/24- 1. Interval decrease in size of previously seen mass at the base of the right lower lobe.
2. New bilateral interstitial and airspace opacities with numerous subcentimeter nodular opacities, findings most likely related to pneumonia. Associated with this, there is added airspace consolidation in the right upper lobe which measures up to
2.9 cm in diameter. Most likely related to infection however mass not definitively excluded, recommend follow-up to resolution. There is also dense airspace consolidation in the lingula which measures up to 7.5 cm in diameter most likely related to
pneumonia. Within this consolidation, there is 1.9 cm probable pulmonary abscess as above.
3. Very small bilateral pleural effusions, right greater than left.
4. Mediastinal lymphadenopathy, new as compared with previous.
5. Coronary and aortic atherosclerosis.
12/15/23- 1. 4.8 x 4.8 x 3.5 cm irregular soft tissue mass within the RIGHT lower lobe abutting the diaphragm with spiculated margins compatible with patient's known primary lung cancer. No definitive evidence for metastatic disease within the
chest. Nonspecific 8.7 mm nodule within the lateral right upper lobe which on retrospective review did not appear to be FDG avid on the PET/CT from 12/04/2023.
2. Mild to moderate centrilobular emphysema within the upper lobes.
3. Densely calcified coronary arteries.
Echo: 09/09/22- 1. Normal left ventricular size and function, EF 55-60%
2. Thickened mitral leaflets with trace mitral regurgitation, mitral chordal calcification, and normal left atrium
3. Aortic sclerosis without stenosis or regurgitation
4. Normal right heart with normal pulmonary artery pressure
There are no prior studies available for comparison.
PFT's:
Reports and relevant images were personally reviewed.
Total time spent on this consultation __51__ minutes which includes review of history, physical exam, medications, laboratory data, personal review of imaging, extensive review of outpatient records, discussion with care team and respiratory therapy.
Subjective Data
-
Date of Service:
Date of Service: September 02, 2024
Chief Complaint: Pulmonary Follow Up
Subjective:
Remains the same, no improvement
feels he is getting weaker and more tired
Objective Data
Data Reviewed
Vital Signs / I&O / Oxygen:
Vital Signs
Temp Pulse Resp BP Pulse Ox
97.7 F 92 16 92/62 93
09/02/24 09:31 09/02/24 09:31 09/02/24 09:31 09/02/24 09:31 09/02/24 08:00
Intake and Output
09/01/24 09/02/24 09/03/24
06:59 06:59 06:59
Intake Total 530 / 530 680 / 680 240 / 240
Output Total 675 / 675 125 / 125 200 / 200
Balance -145 / -145 555 / 555 40 / 40
SaO2 93
Nasal Cannula flow liters per 2
minute
Physical Exam
General: Comfortable and Other (NAD)
HEENT: Normocephalic, Anicteric and Moist Mucous Membranes
Cardiovascular: S1-S2 and Regular Rhythm
Respiratory: Crackles and Non-Labored Respirations
GI: Soft, Non Distended and Non Tender
Neurology: Awake, Alert, Oriented and No Motor Deficits
Skin: Warm, Dry and Good Color
Labs/Micro/Reports
Lab Data
09/02/24 04:25
09/02/24 04:25
Microbiology
08/31/24 16:50 Blood/Venous Blood Culture - Preliminary
No Growth in 24 hours- Final report to follow
08/31/24 16:02 Blood/Venous Blood Culture - Preliminary
No Growth in 24 hours- Final report to follow
08/31/24 15:25 Nose MRSA Screen - Final
No Methicillin Resistant Staphylococcus aureus isolated.
--- NOTE | 2024-09-02 13:20 | W.PN.HOSP.TC ---
Today's Communication/Plan
-
abx
pain control
onc consult
CT Chest Thursday
Assessment / Plan
Assessment / Plan
Physical Exam
General: Well Developed, Well Nourished, No Apparent Distress and Other (Appears pale)
HEENT: NormoCephalic, Anicteric, Moist mucous membranes, Atraumatic and Oxygen (Nasal Cannula)
Respiratory: Clear and Non Labored Respirations; No Wheezes, Rales or Rhonchi
Cardiac: S1/S2, Regular Rhythm and Tachycardia (Slightly); No Murmur
GI: Soft and Non Tender
Rectal: Deferred by Provider
Musculoskeletal: No Clubbing, No Cyanosis and No Edema
Skin: Warm and Dry; No Rash
Neuro: Awake, Alert, Oriented and Nonfocal/grossly intact
Psych: Calm
Symptomatic Anemia
-i suspect with elev ferritin levels and mass - issue of anemia of chronic disease
--Transfuse 2 units PRBCs
-Trend serial Hgb
-EGD without active bleed, F/u EGD outpt
-PPI
-GI recs appreciated
-f/u tsh - WNL
#Shortness of breath
#Lung Opacities
#Multifocal Pneumonia
#?Pulmonary Abscess v lymphangitic spread
-related to symptomatic anemia and possible underlying pulm issue
-f/u ct imaging - multifocal pneumonia +/- abscess
-Pulm consulted
-Onc consulted just in case lymphangitic spread
-initiated on vanc, (f/u mrsa swab), cefepime, flagyl
�Repeat CT Chest with contrast Thursday
Elevated Troponin, suspect Type II FL due to demand ischemia in setting of severe anemia
-Continue to trend troponin
Hyponatremia, mild
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
Continue to trend
COPD, no acute exacerbation
-Continue Breztri
-Continue albuterol prn
Lung Cancer s/p Proton Therapy
-Patient reports known right upper lobe lung cancer, and known left lower lung mass which is non-cancerous
-repeat chest imaging
-stop steroids (was receiving since June)
Hyperlipidemia
-Resume atorvastatin when able to resume diet
DVT proph: Trial hsq
Code Status: Full Code
Total time spent on today's encounter was 53 minutes which included time spent in counseling the patient/family regarding diagnosis and treatment plan as listed above, goals of care, and symptom management. Case was discussed with nursing staff,
specialists, and care coordinators/case management. All labs and imaging personally reviewed by me. Remainder the time spent in detailed review of previous records, lab data, imaging, and other medical provider documentation.
Anticipated Discharge: > 48 hours
Subjective/Interval History
-
Date of Service: September 02, 2024
Had pain in the left shoulder where suicide was. Appears to be still crusted
Objective Data
-
Labs:
Laboratory Results
09/02/24
04:25
WBC 10.4
Hgb 7.3 L
Hct 22.0 L
Plt Count 246
Sodium 135
Potassium 4.0
Chloride 110 H
Carbon Dioxide 20 L
BUN 24 H
Creatinine 0.7
Glucose 101 H
Calcium 7.5 L
Total Bilirubin 0.6
AST 30
ALT 50
Alkaline Phosphatase 94
Vital Signs:
Vital Signs
Temp Pulse Resp BP Pulse Ox
98.6 F 102 22 134/64 96
09/02/24 12:32 09/02/24 12:32 09/02/24 12:32 09/02/24 12:32 09/02/24 10:00
I&O
09/01/24 09/02/24 09/03/24
06:59 06:59 06:59
Intake Total 530 / 530 680 / 680 490 / 490
Output Total 675 / 675 125 / 125 200 / 200
Balance -145 / -145 555 / 555 290 / 290
Review of Systems
-
History Source: Patient
All other systems: Not reviewed unless documented
Data Reviewed
-
Diagnostic Radiology: Report Reviewed by me
CT Scan: Report Reviewed by me
Labs: Labs Reviewed by me
--- NOTE | 2024-09-02 13:30 | PTOTSP ---
Speech Language Pathology
VIDEOFLUOROSCOPIC SWALLOWING EXAMINATION (VSE) completed. Oropharyngeal swallow WFL. Supraglottic penetration at times with thin liquids, which cleared with a cued throat clear. No aspiration or pharyngeal residue.
Recommend:
(1) Continue regular solids/thin liquids
(2) Aspiration precautions: slow rate, single sips, intermittent cough/reswallow if takes consecutive sips
(3) Meds as tolerated (with single sips of liquids only if with liquids)
(4) GLOVE EXAMINER to sign off. Please reconsult as indiciated
--- NOTE | 2024-09-02 14:36 | PTCARENOTE ---
Addendum entered by Lauren Fulton RN 09/02/24 17:44:
Remains ST on tele 120s, Req. Morphine for pain- given and prn Tylenol given as well for left shoulder residual shingle pain6-12/21. Describes pain as 'hot spots'. Skin hot /dry/ flushed all over he has the chills- repeat temp 98.5. OOB for about
3 hours this pm- reclined mostly. IV antibx infusing as ordered. at bedside all day.
Original Note:
Returned from VSE, ST on tele 120s then up to 150s when ambulated to bathroom with PT. BP 132/76 c/o dyspnea 90% on 2.5 L NC increased to 4L.
Currently rate down to 130, he is sitting in recliner chair. Dyspnea improved still there. Will give prn morphine if needs it. Dw Dr. Enrique- will update if not resolved in 30-60 min.
--- NOTE | 2024-09-02 18:06 | CM ---
Addendum entered by Genia Irizarry RN 09/07/24 18:09:
Clarification from MD notes: Patient with Hx lung cancer and shingles with Dx anemia and PNA.
Original Note:
Patient with Hx lung cancer and shingles with Dx GIB. O2 4L. Receiving IV Abx. PT recommends SNF vs HH, OT recommends HH + support. VSE today.
Plan contact [facility] on day of d/c re; final liter flow and O2 delivery.
Plan home with Home O2 and [facility].
[2024-09-03] VITALS (9 sets, daily range): BP systolic 92–137; BP diastolic 53–69; BMI 20.8
[2024-09-03] MEDS: MORPHINE SULFATE 2 MG IV ×5 (00:53→20:28)
[2024-09-03] MEDS: STERILE WATER FOR INJECTION 10 ML IV ×3 (00:54→17:21)
[2024-09-03] MEDS: MAXIPIME 2000 MG IV ×3 (00:55→17:21)
[2024-09-03] MEDS: TYLENOL 650 MG PO ×3 (03:02→22:00)
[2024-09-03 03:49] LABS: Hematocrit 27.4 % (39.0-52.0); Hemoglobin 9.4 g/dL (13.0-18.0); Mean Corp Hgb Conc. 34.3 g/dL (33.0-37.0); Mean Corpuscular Hgb 30.4 pg (27.0-31.0); Mean Corpuscular Volume 88.7 fL (80.0-94.0); Mean Platelet Volume 9.6 fL (7.4-10.4); Platelet Count 243 10^3/uL (130-400); Red Blood Cell Count 3.09 10^6/uL (4.70-6.10); Red Cell Dist. Width 15.8 % (11.5-14.5); White Blood Cell Count 10.9 10^3/uL (4.8-10.8)
[2024-09-03 04:09] LABS: ALT (SGPT) 34 U/L (0-50); AST (SGOT) 21 U/L (17-59); Albumin 2.2 g/dl (3.5-5.0); Alkaline Phosphatase 108 U/L (38-126); Blood Urea Nitrogen 19 mg/dl (9-20); Calcium 7.1 mg/dl (8.4-10.2); Carbon Dioxide 19 mmol/L (22-30); Chloride 109 mmol/L (98-107); Estimated Creatinine Clearance 62 ml/min; Glucose 105 mg/dl (70-99); Potassium 3.8 mmol/L (3.5-5.1); Sodium 134 mmol/L (135-145); Total Bilirubin 0.4 mg/dl (0.2-1.3); Total Protein 4.6 g/dl (6.3-8.2); eGFR > 60.00
[2024-09-03] MEDS: FLAGYL 500 MG 100 IV ×2 (05:23→17:20)
--- NOTE | 2024-09-03 06:24 | PTCARENOTE ---
Assumed care of pt from kaushik RN. Pt aaox3. 94% on 6L NC. Sinus tach on monitor, hr 90-120s. PRN morphine administered for dyspnea and pain (see MAR). Pt resting in bed with call vaughan in reach.
[2024-09-03] MEDS: SPIRIVA RESPIMAT 2.5 MCG 2 PUFF INH (07:33)
[2024-09-03] MEDS: SYMBICORT 160/4.5 MCG INHALER 2 PUFF INH ×2 (07:33→20:19)
[2024-09-03] MEDS: HEPARIN 5000 UNITS SC ×2 (08:00→20:27)
[2024-09-03] MEDS: PROTONIX 40 MG PO ×2 (08:00→20:28)
[2024-09-03] MEDS: NEURONTIN 300 MG PO ×2 (08:00→20:28)
[2024-09-03] MEDS: DESENEX/MITRAZOL/ZEASORB 1 APPLIC TOPICAL ×2 (10:21→20:27)
[2024-09-03] MEDS: DILAUDID IV (11:37)
--- NOTE | 2024-09-03 12:33 | CON.ONC ---
Consultation
-
Date Consultation Requested: 09/02/24
Date Consultation Performed: 09/03/24
Requesting Provider: Dr Joe Enrique
Performing Provider: Dr Devorah Wolf
Reason for Consultation: lung cancer
Impression
Impression
UGI bleed from prednisone + NSAIDs
Blood loss anemia
right lung cancer, s/p SBRT in 11/2023, proton radiation 03/2024
?radiation pneumonitis, for which he was started on Prednisone late June 2024
recent zoster, w/ PHN
Plan
Plan
He's at risk for atypical infections having been on prednisone for the past 2 months
Plan for repeat CT in next 2-3 days
If no improvement on antibiotics, would benefit from bronch to evaluate further -- infection vs lymphangitic spread of cancer
Watch for adrenal insufficiency with abrupt stopping of steroids
PPI BID
no iron deficiency
gabapentin for PHN
Patient History
History of Present Illness
This is a 78 yo M w/ h/o localized NSCLC, s/p RLL SBRT in November 2023 at [facility], and proton RT at [place] in Mar 2024 for in-field recurrence. He's never had chemo.
He had f/u with rad onc in late June, and CT scans done at OSH showed patchy opacities in right mid and right lower lung, thought to be radiation pneumonitis. He was started on Prednisone 80mg/d, with a slow taper (10mg bid at the time of this
admission). He was recently diagnosed with shingles, and has been taking NSAIDs. He presented to the hospital with weakness, and reported weeks of melena. Hgb was 5. He was given 3u PRBCs. EGD showed UGI ulcerations. PPI was changed to BID.
Prednisone was stopped.
CT chest was done on 08/31/24 to evaluate dyspnea, and showed bilateral airspace opacities and nodular opacities, concerning for pneumonia. There is new mediastinal DINAH. He was started on Cepefime and Flagyl, but still needing nasal O2, at 6L. CXR on
09/02 showed no improvement.
Past-Medical/Surgical History
Past Medical History: Reports Other
Additional Past Medical History:
Lung Cancer s/p Proton Therapy and Radiation
COPD
Hyperlipidemia
Shingles
Past Surgical History: Reports Other
Additional Past Surgical History:
Hernia Repair
Appendectomy
Bilateral Cataracts
Social History
Tobacco: Former Smoker (Quit about 6 months ago)
Alcohol: Occasional
Family History
Family History: Not pertinent
Patient Medication
�Medication �Instructions �Recorded �Confirmed �Last Taken �Type
budesonide 160 mcg-glycopyr 9 2 inh inhalation R BID 10/01/22 08/29/24 06/18/24 History
mcg-formot 4.8 mcg/actuation HFA
inhaler (Breztri Aerosphere)
latanoprost 0.005 % eye drops 1 drp BOTH EYES HS 10/01/22 08/29/24 2 Days Ago History
~08/27/24
atorvastatin 20 mg tablet 20 mg PO HS 12/17/23 08/29/24 2 Weeks Ago History
~08/15/24
ibuprofen 200 mg tablet 400 mg PO Q6HPRN PRN mild Pain 12/17/23 08/29/24 08/28/24 History
albuterol sulfate 90 mcg/actuation 2 puff inhalation R Q6HPRN PRN sob 08/29/24 08/29/24 Unknown History
aerosol inhaler
gabapentin 300 mg capsule 300 mg PO BIDPRN PRN shingles 08/29/24 08/29/24 08/29/24 History
prednisone 10 mg tablet 10 mg PO BID 08/29/24 08/29/24 08/29/24 History
Active Medications
Generic Name Dose Route Start Last Admin
Trade Name Freq PRN Reason Stop Dose Admin
Acetaminophen 650 mg 08/29/24 15:56 09/03/24 08:00
Acetaminophen 325 Mg Tablet PO 09/26/24 15:55 650 mg
Q4HPRN PRN Administration
mild pain/ fever>100.5F
Albuterol Sulfate 2.5 mg 08/29/24 19:02 08/30/24 20:17
Albuterol Nebs 2.5 Mg/3 Ml Ampul INH 2.5 mg
R Q4HPRN PRN Administration
shortness of breath / wheeze
Protocol
Budesonide/Formoterol Fumarate 2 puff 08/29/24 20:00 09/03/24 07:33
Symbicort Inhaler 160/4.5 INH 09/26/24 19:59 2 puff
R BID SHREYA Administration
Protocol
Capsaicin 0 applic 09/03/24 13:00
Capsaicin 0.075% (Cream) 60 Gram Tube TOPICAL 10/01/24 12:59
QID SHREYA
Cefepime HCl 2,000 mg 08/31/24 18:00 09/03/24 10:22
Cefepime Hcl 2,000 Mg/12.5 Ml Vial IV 2,000 mg
Q8H SHREYA Administration
Gabapentin 300 mg 08/29/24 20:44 09/03/24 08:00
Gabapentin 300 Mg Capsule PO 09/26/24 20:43 300 mg
BIDPRN PRN Administration
shingles pain
Heparin Sodium 5,000 units 09/01/24 20:00 09/03/24 08:00
Heparin 5,000 Units/Ml 1 Ml Vial SC 09/29/24 19:59 5,000 units
Q12 SHREYA Administration
Hydromorphone HCl 0.25 mg 09/03/24 11:12 09/03/24 11:37
Hydromorphone 0.25 Mg/0.5 Ml Syringe IV 09/17/24 11:11 0.25 mg
Q4HPRN PRN Administration
severe pain
Metronidazole 100 mls @ 100 mls/hr 08/31/24 18:00 09/03/24 05:23
Flagyl 500 Mg IV 100 mls
Q12H SHREYA Administration
Miconazole Nitrate 0 applic 09/03/24 08:00 09/03/24 10:21
Miconazole Powder Bottle TOPICAL 10/01/24 07:59 1 applic
BID SHREYA Administration
Morphine Sulfate 2 mg 09/02/24 13:24 09/03/24 07:58
Morphine 2 Mg/Ml Syringe IV 09/14/24 00:28 2 mg
Q2HPRN PRN Administration
dyspnea, pain
Pantoprazole Sodium 40 mg 08/30/24 20:00 09/03/24 08:00
Pantoprazole 40 Mg Delayed Release Tablet PO 09/27/24 19:59 40 mg
BID SHREYA Administration
Sodium Chloride 0 flush 08/29/24 16:00
Sodium Chloride 0.9% (Flush) Syringe IV 09/26/24 15:59
PER PROTOCOL SHREYA
Sterile Water 10 ml 08/31/24 18:00 09/03/24 10:23
Sterile Water For Injection 10 Ml Vial IV 09/28/24 17:59 10 ml
Q8H SHREYA Administration
Tiotropium [place] 2 puff 08/30/24 08:00 09/03/24 07:33
Tiotropium (Spiriva Respimat) 2.5 Mcg Inhaler INH 09/27/24 07:59 2 puff
R DAILY SHREYA Administration
Protocol
Review of Systems
-
All Other Systems: Not reviewed unless documented
Physical Exam
-
General: No Apparent Distress, Conversant and Appears Chronically Ill
HEENT: Negative Jaundice
Cardiology: Normal Sinus Rhythm
Pulmonary: Wheezes and Rales
GI: Soft and Normal Bowel Sounds
Musculoskeletal: No Clubbing, No Cyanosis and No Edema
Extremities: No C/C/E
Neurology: Non Focal, No Lateralizing Symptoms and No Word Finding Difficulty
Skin: Warm, Dry and Rash (shingles rash to left upper chest)
Psych: Calm and Intact Judgement/Insight
Labs
Lab Results
WBC 10.9 10^3/uL (4.8-10.8) H 09/03/24 03:17
RBC 3.09 10^6/uL (4.70-6.10) L 09/03/24 03:17
Hgb 9.4 g/dL (13.0-18.0) L D 09/03/24 03:17
Hct 27.4 % (39.0-52.0) L 09/03/24 03:17
MCV 88.7 fL (80.0-94.0) 09/03/24 03:17
MCH 30.4 pg (27.0-31.0) 09/03/24 03:17
MCHC 34.3 g/dL (33.0-37.0) 09/03/24 03:17
RDW 15.8 % (11.5-14.5) H 09/03/24 03:17
Plt Count 243 10^3/uL (130-400) 09/03/24 03:17
MPV 9.6 fL (7.4-10.4) 09/03/24 03:17
Abs Immat Gran (auto) 0.4 10^3/uL (0-0.05) H 08/31/24 03:54
Absolute Neuts (auto) 12.0 10^3/uL (1.4-6.5) H 08/31/24 03:54
Absolute Lymphs (auto) 0.4 10^3/uL (1.2-3.4) L 08/31/24 03:54
Absolute Monos (auto) 0.6 10^3/uL (0.1-0.6) 08/31/24 03:54
Absolute Eos (auto) 0.0 10^3/uL (0-0.7) 08/31/24 03:54
Absolute Basos (auto) 0.0 10^3/uL (0-0.2) 08/31/24 03:54
Immature Gran % 2.6 % (0-0.5) H 08/31/24 03:54
Neutrophils % 90.3 % (42.2-75.2) H 08/31/24 03:54
Lymphocytes % 2.6 % (20.5-51.1) L 08/31/24 03:54
Monocytes % 4.1 % (1.7-9.3) 08/31/24 03:54
Eosinophils % 0.2 % (0-6) 08/31/24 03:54
Basophils % 0.2 % (0-2) 08/31/24 03:54
Creatinine 0.8 mg/dL (0.7-1.3) 09/03/24 03:17
Vital Signs
Vital Signs
Temp Pulse Resp BP Pulse Ox
98.1 F 103 22 119/62 92
09/03/24 11:10 09/03/24 10:00 09/03/24 10:00 09/03/24 10:00 09/03/24 08:00
--- NOTE | 2024-09-03 12:58 | W.PN.PUL3 ---
Today's Communication / Plan
-
- F/u CT 09/05
- Continue antibiotics for now
- Titrate O2 as tolerated
- Depending on clinical course, might need Bronchoscopy/BAL/Biopsies
- Pulmonary service will follow up Thursday after CT
Assessment
-
Patient is a 78-year-old male with previous history of COPD, squamous cell carcinoma of the lung, hyperlipidemia presenting to the ER with shortness of breath. He notes that he has had progressive decline of his shortness of breath in the past
few weeks. He also reports generalized weakness, dizziness. He was recently placed on a course of oral steroids for his lungs but he did not feel any difference in his complaints. He was admitted on 08/29/2024, had admission CT demonstrating
smaller size of known right lower lobe tumor but with new bilateral interstitial and airspace opacities suggesting pneumonia. He has been placed on antibiotics and resumed on steroid taper. He does not feel significant improvement in his
complaints. He was recently treated with antibiotics at other institutions as recently as beginning of August. His last chemo treatment was 2022, he underwent proton therapy at [place] in March. He otherwise has been off chemo and radiation
treatment in the past year.
Acute on chronic SOB
Worsening CT, suspect PNA vs lymphangitic spread
Anemia Hb 5.0
Hyponatremia
Hypocalcemia
Iron deficiency
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
PNA
Bradycardia
Panlobular emphysema
Paroxysmal nocturnal dyspnea
COPD, follows with Tommy
Moderate obstruction on PFTs
Maintained on Breztri
Squamous cell lung cancer, RLL
L inguinal hernia
Recent COVID-19 (04/2024)
Hernia surgery right
Appendectomy
Mastoid surgery as baby
Cataracts bilateral
Robotic asst lap repair left inguinal hernia with mesh ([facility]) 06/2024
Plan
Hypoxemia noted on arrival, placed on 3L satting 93%, now on 5L satting 96%
No oxygen was needed prior to admission, was not on at home
Home O2 evaluation eventually
Prior history of lung disease is noted including COPD/emphysema
Follows at [facility], last PFT with moderate obstruction and moderate diffusion impairment
Recently treated with prednisone taper and antibiotics
Suspect patient has superimposed pneumonia, was treated recently with IV antibiotics
He is resumed on IV empiric course
CXR/CT obtained and reviewed with broad differential diagnosis but need to rule out concurrent heart failure, aspiration, infection
I do feel some of the findings are suggestive of lymphangitic spread given apical septal appearance vs radiation related changes
F/u CT Thursday. Depending on the clinical course, might need Bronchoscopy/BAL/Biopsies.
I do not feel this is COPD exacerbation
He had been treated with a recent course of prednisone but did not feel any improvement
Agree with stopping steroids
Has history of squamous cell carcinoma, last PET scan and treatment in 2022
proBNP 1820
Prior ECHO results are reviewed indicating normal function
There could be a mild component of volume overload but I doubt that this is the primary etiology. No pedal edema. Exam not suggestive of fluid overload.
Anemia as noted on admission, given 2 units
Underwent upper endoscopy showing esophageal ulcers with no bleeding and no stigmata, 2 cm hiatal hernia, congestive gastropathy, nonbleeding duodenal ulcers
Plan for treatment with PPI
Aspiration could be a possibility, appreciate speech eval
VSE planning
Will need outpatient pulmonary evaluation in our office for PFTs and 6MWT
Reviewed with patient
Diagnostic Data
Chest X-Ray: 08/29/24- Opacification of the right lung base in part secondary to the patient's known right lower lobe lung cancer, with suspicion for accompanying postobstructive atelectasis or pneumonia. New opacity in the mid to lower left lung,
which may represent malignancy or pneumonia. No pneumothorax or large pleural effusion. The cardiomediastinal silhouette is stable. Chronic degenerative changes of the spine.
12/21/23- Mass projects over the right lung base, also seen on prior CT dated 12/15/2023. No large pleural effusion on either side.
CT Scan: CHEST 08/31/24- 1. Interval decrease in size of previously seen mass at the base of the right lower lobe.
2. New bilateral interstitial and airspace opacities with numerous subcentimeter nodular opacities, findings most likely related to pneumonia. Associated with this, there is added airspace consolidation in the right upper lobe which measures up to
2.9 cm in diameter. Most likely related to infection however mass not definitively excluded, recommend follow-up to resolution. There is also dense airspace consolidation in the lingula which measures up to 7.5 cm in diameter most likely related to
pneumonia. Within this consolidation, there is 1.9 cm probable pulmonary abscess as above.
3. Very small bilateral pleural effusions, right greater than left.
4. Mediastinal lymphadenopathy, new as compared with previous.
5. Coronary and aortic atherosclerosis.
12/15/23- . 4.8 x 4.8 x 3.5 cm irregular soft tissue mass within the RIGHT lower lobe abutting the diaphragm with spiculated margins compatible with patient's known primary lung cancer. No definitive evidence for metastatic disease within the
chest. Nonspecific 8.7 mm nodule within the lateral right upper lobe which on retrospective review did not appear to be FDG avid on the PET/CT from 12/04/2023.
2. Mild to moderate centrilobular emphysema within the upper lobes.
3. Densely calcified coronary arteries.
Echo: 09/09/22- . Normal left ventricular size and function, EF 55-60%
2. Thickened mitral leaflets with trace mitral regurgitation, mitral chordal calcification, and normal left atrium
3. Aortic sclerosis without stenosis or regurgitation
4. Normal right heart with normal pulmonary artery pressure
There are no prior studies available for comparison.
PFT's:
Reports and relevant images were personally reviewed.
Total time spent on this consultation __51__ minutes which includes review of history, physical exam, medications, laboratory data, personal review of imaging, extensive review of outpatient records, discussion with care team and respiratory therapy.
Subjective Data
-
Date of Service:
Date of Service: September 03, 2024
Chief Complaint: Pulmonary Follow Up
Subjective:
Patient comfortably sitting in bed, no acute distress.
Review of Systems
Genitourinary: Other (No new complaints. )
Objective Data
Data Reviewed
Vital Signs / I&O / Oxygen:
Vital Signs
Temp Pulse Resp BP Pulse Ox
98.1 F 103 22 119/62 92
09/03/24 11:10 09/03/24 10:00 09/03/24 10:00 09/03/24 10:00 09/03/24 08:00
Intake and Output
09/02/24 09/03/24 09/04/24
06:59 06:59 06:59
Intake Total 680 / 680 1310 / 1310 180 / 180
Output Total 125 / 125 1050 / 1050
Balance 555 / 555 260 / 260 180 / 180
SaO2 92
Nasal Cannula flow liters per 5
minute
Physical Exam
General: Comfortable
HEENT: Normocephalic, Anicteric and Moist Mucous Membranes
Cardiovascular: S1-S2 and Regular Rhythm
Respiratory: Rhonchi and Non-Labored Respirations
GI: Soft, Non Distended and Non Tender
Neurology: Awake, Alert and Oriented
Skin: Warm and Dry
Labs/Micro/Reports
Lab Data
09/03/24 03:17
09/03/24 03:17
Microbiology
08/31/24 16:50 Blood/Venous Blood Culture - Preliminary
No Growth in 48 hours- Final report to follow
08/31/24 16:02 Blood/Venous Blood Culture - Preliminary
No Growth in 48 hours- Final report to follow
08/31/24 15:25 Nose MRSA Screen - Final
No Methicillin Resistant Staphylococcus aureus isolated.
[2024-09-03] MEDS: ZOSTRIX-HP 0.075% CREAM 1 APPLIC TOPICAL ×3 (13:13→22:00)
[2024-09-03] MEDS: DILAUDID 0.25 MG IV ×3 (13:14→22:00)
--- NOTE | 2024-09-03 13:41 | W.PN.HOSP.TC ---
Today's Communication/Plan
-
abx
pain control
CT Chest w/o cont Thursday
PPI
Assessment / Plan
Assessment / Plan
Physical Exam
General: Well Developed, Well Nourished, No Apparent Distress and Other (Appears pale)
HEENT: NormoCephalic, Anicteric, Moist mucous membranes, Atraumatic and Oxygen (Nasal Cannula)
Respiratory: Clear and Non Labored Respirations; No Wheezes, Rales or Rhonchi
Cardiac: S1/S2, Regular Rhythm and Tachycardia (Slightly); No Murmur
GI: Soft and Non Tender
Rectal: Deferred by Provider
Musculoskeletal: No Clubbing, No Cyanosis and No Edema
Skin: Warm and Dry; No Rash
Neuro: Awake, Alert, Oriented and Nonfocal/grossly intact
Psych: Calm
Symptomatic Anemia
-i suspect with elev ferritin levels and mass - issue of anemia of chronic disease;
--Transfused 3 units PRBCs total
-Trend serial Hgb
-EGD without active bleed, F/u EGD outpt
-PPI
-GI recs appreciated
-f/u tsh - WNL
#Shortness of breath
#Lung Opacities
#Multifocal Pneumonia
#?Pulmonary Abscess v lymphangitic spread v radiation pneumonitis
-related to symptomatic anemia and possible underlying pulm issue
-f/u ct imaging - multifocal pneumonia +/- abscess
-Pulm consulted
-Onc consulted just in case lymphangitic spread
-initiated on vanc, (f/u mrsa swab), cefepime, flagyl; MRSA neg - dc Vanc
�Repeat CT Chest w/o Thursday
Elevated Troponin, suspect Type II DE due to demand ischemia in setting of severe anemia
Hyponatremia, mild
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
Continue to trend
COPD, no acute exacerbation
-Continue Breztri
-Continue albuterol prn
Lung Cancer s/p Proton Therapy
-Patient reports known right upper lobe lung cancer, and known left lower lung mass which is non-cancerous
-repeat chest imaging Thursday
-stop steroids (was receiving since June)
Hyperlipidemia
-Resume atorvastatin when able to resume diet
DVT proph: Trial hsq
Code Status: Full Code
Total time spent on today's encounter was 51 minutes which included time spent in counseling the patient/family regarding diagnosis and treatment plan as listed above, goals of care, and symptom management. Case was discussed with nursing staff,
specialists, and care coordinators/case management. All labs and imaging personally reviewed by me. Remainder the time spent in detailed review of previous records, lab data, imaging, and other medical provider documentation.
Anticipated Discharge: > 48 hours
Subjective/Interval History
-
Date of Service: September 03, 2024
No acute changes
Objective Data
-
Labs:
Laboratory Results
09/03/24
03:17
WBC 10.9 H
Hgb 9.4 L D
Hct 27.4 L
Plt Count 243
Sodium 134 L
Potassium 3.8
Chloride 109 H
Carbon Dioxide 19 L
BUN 19
Creatinine 0.8
Glucose 105 H
Calcium 7.1 L
Total Bilirubin 0.4
AST 21
ALT 34
Alkaline Phosphatase 108
Vital Signs:
Vital Signs
Temp Pulse Resp BP Pulse Ox
98.1 F 103 22 119/62 92
09/03/24 11:10 09/03/24 10:00 09/03/24 10:00 09/03/24 10:00 09/03/24 08:00
I&O
09/02/24 09/03/24 09/04/24
06:59 06:59 06:59
Intake Total 680 / 680 1310 / 1310 180 / 180
Output Total 125 / 125 1050 / 1050
Balance 555 / 555 260 / 260 180 / 180
Review of Systems
-
History Source: Patient
All other systems: Not reviewed unless documented
Data Reviewed
-
Diagnostic Radiology: Report Reviewed by me
CT Scan: Report Reviewed by me
Labs: Labs Reviewed by me
--- NOTE | 2024-09-03 15:37 | PTCARENOTE ---
Severe pain left should up over top of his head 'burning'- Morphine, Tylenol and Gabapentin given this am with little relief- d/w provider. IV Dilaudid given x 1 and Capsaicin ointment with better pain relief pain down to 3/10. OOB ambulated to
bathroom then sat in chair 1.5 hrs. Received on 6L NC weaned to 3L NC maintaining sao2 97% at this time.( Sleeping) Poor po intake but he states he is drinking plenty.
--- NOTE | 2024-09-03 23:04 | PTCARENOTE ---
Assumed care of pt from daysdeft RN. Pt ox3. Sinus tach on monitor, hr 100-110s. 93% on 6L NC. Pt c/o burning pain r/t shingles, medications administered for pain control throughout shift (see MAR). Pt is now resting in bed asleep with call vaughan in
reach.
[2024-09-04] VITALS (13 sets, daily range): BP systolic 91–134; BP diastolic 56–85; PULSE 101; O2SAT 100; BMI 20.8
[2024-09-04] MEDS: MORPHINE SULFATE 2 MG IV ×3 (02:40→13:35)
[2024-09-04] MEDS: FLUSH (NSS) 3 FLUSH IV (02:44)
[2024-09-04] MEDS: STERILE WATER FOR INJECTION 10 ML IV ×3 (02:45→18:07)
[2024-09-04] MEDS: MAXIPIME 2000 MG IV ×3 (02:45→18:07)
[2024-09-04] MEDS: DILAUDID 0.25 MG IV ×3 (05:21→18:08)
[2024-09-04] MEDS: FLAGYL 500 MG 100 IV ×2 (05:23→18:07)
[2024-09-04] MEDS: ZOSTRIX-HP 0.075% CREAM 1 APPLIC TOPICAL (05:41)
[2024-09-04] MEDS: TYLENOL 650 MG PO ×3 (05:51→18:07)
[2024-09-04 06:16] LABS: Ionized Calcium 1.04 mMOL/L (1.15-1.33)
[2024-09-04 06:27] LABS: Hematocrit 28.2 % (39.0-52.0); Hemoglobin 9.5 g/dL (13.0-18.0); Mean Corp Hgb Conc. 33.7 g/dL (33.0-37.0); Mean Corpuscular Hgb 29.9 pg (27.0-31.0); Mean Corpuscular Volume 88.7 fL (80.0-94.0); Mean Platelet Volume 9.4 fL (7.4-10.4); Platelet Count 300 10^3/uL (130-400); Red Blood Cell Count 3.18 10^6/uL (4.70-6.10); Red Cell Dist. Width 15.9 % (11.5-14.5); White Blood Cell Count 10.7 10^3/uL (4.8-10.8)
[2024-09-04 06:53] LABS: ALT (SGPT) 28 U/L (0-50); AST (SGOT) 21 U/L (17-59); Albumin 2.3 g/dl (3.5-5.0); Alkaline Phosphatase 95 U/L (38-126); Blood Urea Nitrogen 18 mg/dl (9-20); Calcium 7.5 mg/dl (8.4-10.2); Carbon Dioxide 20 mmol/L (22-30); Chloride 110 mmol/L (98-107); Estimated Creatinine Clearance 68 ml/min; Glucose 87 mg/dl (70-99); Magnesium 2.2 mg/dl (1.6-2.3); Phosphorus 2.7 mg/dl (2.5-4.5); Potassium 3.7 mmol/L (3.5-5.1); Sodium 135 mmol/L (135-145); Total Bilirubin 0.7 mg/dl (0.2-1.3); Total Protein 4.8 g/dl (6.3-8.2); eGFR > 60.00
[2024-09-04] MEDS: SYMBICORT 160/4.5 MCG INHALER 2 PUFF INH ×2 (07:36→19:43)
[2024-09-04] MEDS: SPIRIVA RESPIMAT 2.5 MCG 2 PUFF INH (07:37)
[2024-09-04] MEDS: PROTONIX 40 MG PO ×2 (08:50→20:23)
[2024-09-04] MEDS: HEPARIN 5000 UNITS SC ×2 (08:50→20:23)
[2024-09-04] MEDS: DESENEX/MITRAZOL/ZEASORB 1 APPLIC TOPICAL ×2 (08:52→20:23)
--- NOTE | 2024-09-04 09:15 | PTCARENOTE ---
Patient received from night manager. Patient resting comfortably in bed. No events noted over night. Complaints of pain, generalized but more focused on neck and upper back. Scabs noted in areas of pain from recent scabies. Continuing ABX. Pain
control. Topical cream PRN. Reaching out to hospitalist about possible thrush. No testing scheduled at this time. Call vaughan in reach.
[2024-09-04] MEDS: MYCOSTATIN ORAL SUSPENSION 5 ML PO ×3 (12:16→20:55)
[2024-09-04] MEDS: MAGIC OR MIRACLE MOUTHWASH 5 ML PO ×3 (12:16→20:56)
--- NOTE | 2024-09-04 12:35 | W.PN.HOSP.TC ---
Today's Communication/Plan
-
abx
pain control
CT Chest w/o cont Thursday
PPI
magic mouthwash, nystatin swish and spit
Assessment / Plan
Assessment / Plan
Physical Exam
General: Well Developed, Well Nourished, No Apparent Distress and Other (Appears pale)
HEENT: NormoCephalic, Anicteric, Moist mucous membranes, Atraumatic and Oxygen (Nasal Cannula)
Respiratory: Clear and Non Labored Respirations; No Wheezes, Rales or Rhonchi
Cardiac: S1/S2, Regular Rhythm and Tachycardia (Slightly); No Murmur
GI: Soft and Non Tender
Rectal: Deferred by Provider
Musculoskeletal: No Clubbing, No Cyanosis and No Edema
Skin: Warm and Dry; No Rash
Neuro: Awake, Alert, Oriented and Nonfocal/grossly intact
Psych: Calm
Symptomatic Anemia
-i suspect with elev ferritin levels and mass - issue of anemia of chronic disease;
--Transfused 3 units PRBCs total
-Trend serial Hgb
-EGD without active bleed, F/u EGD outpt
-PPI
-GI recs appreciated
-f/u tsh - WNL
#Shortness of breath
#Lung Opacities
#Multifocal Pneumonia
#?Pulmonary Abscess v lymphangitic spread v radiation pneumonitis
-related to symptomatic anemia and possible underlying pulm issue
-f/u ct imaging - multifocal pneumonia +/- abscess
-Pulm consulted
-Onc consulted just in case lymphangitic spread
-cefepime, flagyl; MRSA neg - dc Vanc
�Repeat CT Chest w/o Cont Thursday
Elevated Troponin, suspect Type II AK due to demand ischemia in setting of severe anemia
Hyponatremia, mild
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
Continue to trend
COPD, no acute exacerbation
-Continue Breztri
-Continue albuterol prn
Lung Cancer s/p Proton Therapy
-Patient reports known right upper lobe lung cancer, and known left lower lung mass which is non-cancerous
-repeat chest imaging Thursday
-stop steroids (was receiving since June)
Hyperlipidemia
-Resume atorvastatin when able to resume diet
#Tongue ulcer
#Oral thrush
� States has been present for many months after tooth trauma
� On inhaled steroids
� Start nystatin swish and spit
� Magic mouthwash
#Hypocalcemia
� Monitor and replete
DVT proph: Trial hsq
Code Status: Full Code
Anticipated Discharge: Within 24 hours
Subjective/Interval History
-
Date of Service: September 04, 2024
no acute events. does acknowledge some pain at right side of tongue, appears to have wound - states possibly 2/2 to tooth trauma
Objective Data
-
Labs:
Laboratory Results
09/04/24
05:56
WBC 10.7
Hgb 9.5 L
Hct 28.2 L
Plt Count 300 D
Sodium 135
Potassium 3.7
Chloride 110 H
Carbon Dioxide 20 L
BUN 18
Creatinine 0.7
Glucose 87
Calcium 7.5 L
Total Bilirubin 0.7
AST 21
ALT 28
Alkaline Phosphatase 95
Vital Signs:
Vital Signs
Temp Pulse Resp BP Pulse Ox
97.5 F 109 20 91/63 95
09/04/24 07:25 09/04/24 07:48 09/04/24 07:48 09/04/24 06:00 09/04/24 06:00
I&O
09/03/24 09/04/24 09/05/24
06:59 06:59 06:59
Intake Total 1310 / 1310 1060 / 1060
Output Total 1050 / 1050 450 / 450
Balance 260 / 260 610 / 610
Review of Systems
-
History Source: Patient
All other systems: Not reviewed unless documented
Data Reviewed
-
Diagnostic Radiology: Report Reviewed by me
CT Scan: Report Reviewed by me
Labs: Labs Reviewed by me
[2024-09-04] MEDS: NEURONTIN 300 MG PO (13:35)
[2024-09-04] MEDS: CALCIUM GLUCONATE 290 MG IV (14:07)
[2024-09-05] VITALS (12 sets, daily range): BP systolic 109–126; BP diastolic 53–68; BMI 20.8
--- NOTE | 2024-09-05 00:15 | PTCARENOTE ---
assumed care of patient. pt is AAOx3, able to make needs known. on 4L NC 98%. able to use urinal at bedside. old shingle scabs to left chest/neck noted. pt complaints of mouth ulcer pain, meds given per MAR. care ongoing.
[2024-09-05] MEDS: DILAUDID 0.25 MG IV ×4 (01:21→19:22)
[2024-09-05] MEDS: TYLENOL 650 MG PO ×4 (01:21→21:05)
[2024-09-05] MEDS: MAXIPIME 2000 MG IV ×3 (01:22→17:24)
[2024-09-05] MEDS: STERILE WATER FOR INJECTION 10 ML IV ×3 (01:22→17:24)
--- NOTE | 2024-09-05 02:04 | PTCARENOTE ---
pt up to [facility] to have a BM, pt HR increased to 150s, oxygen dropped to 80s on 3L. oxygen increased to 6L, pt did state he felt very SOB and dizzy. pt back to bed and able to recover. PRN dilaudid and tylenol given per MAR. care ongoing.
[2024-09-05] MEDS: FLAGYL 500 MG 100 IV ×2 (05:02→17:24)
[2024-09-05 06:01] LABS: ALT (SGPT) 25 U/L (0-50); AST (SGOT) 22 U/L (17-59); Albumin 2.2 g/dl (3.5-5.0); Alkaline Phosphatase 88 U/L (38-126); Blood Urea Nitrogen 20 mg/dl (9-20); Calcium 7.8 mg/dl (8.4-10.2); Carbon Dioxide 19 mmol/L (22-30); Chloride 111 mmol/L (98-107); Estimated Creatinine Clearance 68 ml/min; Glucose 86 mg/dl (70-99); Potassium 3.9 mmol/L (3.5-5.1); Sodium 136 mmol/L (135-145); Total Bilirubin 0.7 mg/dl (0.2-1.3); Total Protein 4.6 g/dl (6.3-8.2); eGFR > 60.00
[2024-09-05 06:04] LABS: Hematocrit 28.4 % (39.0-52.0); Hemoglobin 9.4 g/dL (13.0-18.0); Mean Corp Hgb Conc. 33.1 g/dL (33.0-37.0); Mean Corpuscular Volume 90.7 fL (80.0-94.0); Mean Platelet Volume 9.3 fL (7.4-10.4); Platelet Count 332 10^3/uL (130-400); Red Blood Cell Count 3.13 10^6/uL (4.70-6.10); Red Cell Dist. Width 16.4 % (11.5-14.5); White Blood Cell Count 10.1 10^3/uL (4.8-10.8)
[2024-09-05] MEDS: SPIRIVA RESPIMAT 2.5 MCG 2 PUFF INH (07:40)
[2024-09-05] MEDS: MYCOSTATIN ORAL SUSPENSION 5 ML PO ×4 (07:40→21:05)
[2024-09-05] MEDS: PROTONIX 40 MG PO ×2 (07:40→19:22)
[2024-09-05] MEDS: SYMBICORT 160/4.5 MCG INHALER 2 PUFF INH ×2 (07:40→19:27)
[2024-09-05] MEDS: DESENEX/MITRAZOL/ZEASORB 1 APPLIC TOPICAL ×2 (07:41→19:22)
[2024-09-05] MEDS: HEPARIN 5000 UNITS SC ×2 (07:41→19:22)
[2024-09-05] MEDS: MAGIC OR MIRACLE MOUTHWASH 5 ML PO ×4 (07:41→21:05)
--- NOTE | 2024-09-05 09:39 | W.PN.PUL3 ---
Today's Communication / Plan
-
- Continue cefepime and Flagyl
- CT chest without contrast today
- Further recommendations pending CT
Assessment
-
Patient is a 78-year-old male with previous history of COPD, squamous cell carcinoma of the lung, hyperlipidemia presenting to the ER with shortness of breath. He notes that he has had progressive decline of his shortness of breath in the past
few weeks. He also reports generalized weakness, dizziness.
Patient has h/o localized NSCLC, s/p RLL SBRT in November 2023 at [facility], and proton RT at [place] in Mar 2024 for in-field recurrence. He's never had chemo. He had f/u with rad onc in late June, and CT scans done at OSH showed patchy opacities in right
mid and right lower lung, thought to be radiation pneumonitis. He was started on Prednisone 80mg/d, with a slow taper (10mg bid at the time of this admission). He was recently diagnosed with shingles, and has been taking NSAIDs. He presented to the
hospital with weakness, and reported weeks of melena. Hgb was 5. He was given 3u PRBCs. EGD showed UGI ulcerations. PPI was changed to BID. Prednisone was stopped.
CT chest was done on 08/31/24 to evaluate dyspnea, and showed bilateral airspace opacities and nodular opacities, concerning for pneumonia. There is new mediastinal DINAH. He was started on Cepefime and Flagyl..
#1. Multifocal pulmonary opacities. Differential diagnosis includes multifocal pneumonia, lymphangitic spread of known lung cancer versus radiation pneumonitis. Multiple nodular opacities are more suspicious for infection/malignancy rather than
radiation related changes.
- Patient has been on prednisone taper as outpatient for suspected radiation pneumonitis, currently stopped due to shingles
- Patient has been on cefepime and Flagyll
- WBC count normal, no fever. Cultures have stayed negative
- Await follow-up CT chest 09/05
- At risk of atypical infections. Depending upon the follow-up imaging and clinical course, might need bronchoscopy/BAL/biopsies
#2. History of non-small cell lung cancer, RLL.
- S/p RLL SBRT in November 2023. Followed by proton radiation at [place] in March 2024 for infield recurrence.
- CT scan 08/31, shows decreased right lower lobe opacity however multiple new nodular opacities bilaterally concerning for infection versus tumor.
#3. Lingular infiltrate with area of necrosis. Necrotizing pneumonia with pulmonary abscess versus necrotizing malignancy
- Continue cefepime and IV Flagyl
- Follow-up CT scan 09/05
#4. h/o COPD/Emphysema
-Patient follows up with [facility]. Last pulmonary function test showed moderate obstruction with moderate diffusion impairment
-Continue Spiriva and Symbicort
-Continue albuterol as needed. Not actively wheezing, hold off on steroids. Continue antibiotic
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
PNA
Bradycardia
Panlobular emphysema
Paroxysmal nocturnal dyspnea
COPD, follows with Tommy
Moderate obstruction on PFTs
Maintained on Breztri
Squamous cell lung cancer, RLL
L inguinal hernia
Recent COVID-19 (04/2024)
Hernia surgery right
Appendectomy
Mastoid surgery as baby
Cataracts bilateral
Robotic asst lap repair left inguinal hernia with mesh ([facility]) 06/2024
Diagnostic Data
Chest X-Ray: 08/29/24- Opacification of the right lung base in part secondary to the patient's known right lower lobe lung cancer, with suspicion for accompanying postobstructive atelectasis or pneumonia. New opacity in the mid to lower left lung,
which may represent malignancy or pneumonia. No pneumothorax or large pleural effusion. The cardiomediastinal silhouette is stable. Chronic degenerative changes of the spine.
12/21/23- Mass projects over the right lung base, also seen on prior CT dated 12/15/2023. No large pleural effusion on either side.
CT Scan: CHEST 08/31/24- 1. Interval decrease in size of previously seen mass at the base of the right lower lobe.
2. New bilateral interstitial and airspace opacities with numerous subcentimeter nodular opacities, findings most likely related to pneumonia. Associated with this, there is added airspace consolidation in the right upper lobe which measures up to
2.9 cm in diameter. Most likely related to infection however mass not definitively excluded, recommend follow-up to resolution. There is also dense airspace consolidation in the lingula which measures up to 7.5 cm in diameter most likely related to
pneumonia. Within this consolidation, there is 1.9 cm probable pulmonary abscess as above.
3. Very small bilateral pleural effusions, right greater than left.
4. Mediastinal lymphadenopathy, new as compared with previous.
5. Coronary and aortic atherosclerosis.
12/15/23- 1. 4.8 x 4.8 x 3.5 cm irregular soft tissue mass within the RIGHT lower lobe abutting the diaphragm with spiculated margins compatible with patient's known primary lung cancer. No definitive evidence for metastatic disease within the
chest. Nonspecific 8.7 mm nodule within the lateral right upper lobe which on retrospective review did not appear to be FDG avid on the PET/CT from 12/04/2023.
2. Mild to moderate centrilobular emphysema within the upper lobes.
3. Densely calcified coronary arteries.
Echo: 09/09/22- 1. Normal left ventricular size and function, EF 55-60%
2. Thickened mitral leaflets with trace mitral regurgitation, mitral chordal calcification, and normal left atrium
3. Aortic sclerosis without stenosis or regurgitation
4. Normal right heart with normal pulmonary artery pressure
There are no prior studies available for comparison.
PFT's:
Reports and relevant images were personally reviewed.
Total time spent on this consultation __48__ minutes which includes review of history, physical exam, medications, laboratory data, personal review of imaging, extensive review of outpatient records, discussion with care team and respiratory therapy.
Subjective Data
-
Date of Service:
Date of Service: September 05, 2024
Chief Complaint: Pulmonary Follow Up
Objective Data
Data Reviewed
Vital Signs / I&O / Oxygen:
Vital Signs
Temp Pulse Resp BP Pulse Ox
97.0 F 104 22 125/61 94
09/05/24 04:35 09/05/24 07:42 09/05/24 07:42 09/05/24 06:00 09/05/24 07:42
Intake and Output
09/04/24 09/05/24 09/06/24
06:59 06:59 06:59
Intake Total 1060 / 1060
Output Total 450 / 450 600 / 600
Balance 610 / 610 -600 / -600
SaO2 94
Nasal Cannula flow liters per 4
minute
Physical Exam
General: Comfortable
HEENT: Normocephalic, Anicteric and Moist Mucous Membranes
Cardiovascular: S1-S2 and Regular Rhythm
Respiratory: Rhonchi and Non-Labored Respirations
GI: Soft, Non Distended and Non Tender
Neurology: Awake, Alert and Oriented
Skin: Warm and Dry
Labs/Micro/Reports
Lab Data
09/05/24 05:45
09/05/24 05:09
Microbiology
08/31/24 16:50 Blood/Venous Blood Culture - Preliminary
No Growth in 4 days- Final report to follow
08/31/24 16:02 Blood/Venous Blood Culture - Preliminary
No Growth in 4 days- Final report to follow
--- NOTE | 2024-09-05 10:36 | CM ---
Met with patient and his at bedside; explained that PT recommends SNF when medically stable for discharge; both willing to review list of facility options and identify preferences for referral
--- NOTE | 2024-09-05 10:37 | W.PN.HOSP.TC ---
Today's Communication/Plan
-
valacyclovir
Airborne precautions
CT scan
Assessment / Plan
Assessment / Plan
78yo M with PMHX of COPD, squamous cell CA of the lung s/p SBRT iin 12/04 and proton therapy in ec 2023 came with SOB. Had some persistent patchy opacitied in June thought to be 2/2 radiation pneumonitits and was started on Prednisone. Also concern
for R hsoulder herpes zoster started in June also. Managed for hypoxia 2/2 possible R sided pneumonia, cannot exclude metastatic CA
A/P:
#Multifocal pneumonia with acute hypoxic respiratory failure
#Lingular infiltrate with area of necrosis
Completed outpatient steroids
empiric Abx- cefepime/flagyl as per fleet service manager
FOllow up CT
Might benefit from bronch as per omcology
Elevated procal not informative in CA patient
#Symptomatic anemia
s/p EGD by GI: non-bleeding ulcers
PPI BID
s/p 3 units PRBC
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
valacyclovir empirically, if not improving - will need culturing
follow LFT
airborne precautions
#Non-ischemic myocardial injury 2/2 hypoxia, anemia
plato-ed at 0.267
no chest pain
#COPD not in exacerbation
cont bronchodilators
#Paroxysmal nocturnal dyspnea
#Cataracts
#asymptomatic bradycardia
cont home meds
#Hypocalcemia
replete and follow
DVT ppx on hep
FUll code
I have spent at least 58min reviewing chart, test results, communication with consultants and providing direct patient care
Anticipated Discharge: > 48 hours
Subjective/Interval History
-
Date of Service: September 05, 2024
Objective Data
-
Labs:
Laboratory Results
09/05/24 09/05/24
05:09 05:45
WBC Cancelled 10.1
Hgb Cancelled 9.4 L
Hct Cancelled 28.4 L
Plt Count Cancelled 332
Sodium 136
Potassium 3.9
Chloride 111 H
Carbon Dioxide 19 L
BUN 20
Creatinine 0.7
Glucose 86
Calcium 7.8 L
Total Bilirubin 0.7
AST 22
ALT 25
Alkaline Phosphatase 88
Vital Signs:
Vital Signs
Temp Pulse Resp BP Pulse Ox
97.0 F 95 15 109/59 98
09/05/24 04:35 09/05/24 08:00 09/05/24 08:00 09/05/24 10:00 09/05/24 08:00
I&O
09/04/24 09/05/24 09/06/24
06:59 06:59 06:59
Intake Total 1060 / 1060
Output Total 450 / 450 600 / 600
Balance 610 / 610 -600 / -600
Review of Systems
-
History Source: Patient
All other systems: Reviewed and negative
Physical Exam
-
General: No Apparent Distress
HEENT: Normocephalic
Respiratory: Clear to Auscultation
Cardiac: Regular Rhythm
GI: Soft and Nontender
Skin: Warm and Rash (L shoulder)
Neuro: Awake, Alert, Oriented and AO x 3
Psych: Calm
[2024-09-05] MEDS: CALCIUM GLUCONATE 100 IV (13:54)
--- NOTE | 2024-09-05 15:07 | PTCARENOTE ---
Patient AOx3. NSR with BBB on monitor. Patient tachy during ambulation. BP stable. 3L NC with SpO2 greater than 92%. Dyspnea on exertion. Poor appetite. Brown formed BM during shift. PRN pain medication provided. Airborne precautions maintained.
at bedside. Call vaughan within reach, bed in lowest position, and bed of wheels locked.
[2024-09-05] MEDS: VALTREX 1000 MG PO ×2 (17:24→21:05)
[2024-09-05] MEDS: NEURONTIN 300 MG PO (21:05)
[2024-09-06] VITALS (22 sets, daily range): BP systolic 89–133; BP diastolic 59–79; PULSE 110–142; O2SAT 93; BMI 21.1
--- NOTE | 2024-09-06 00:08 | PTCARENOTE ---
assumed care of patient. pt is AAOx3, able to make needs known. flat and withdrawn, frustrated with being in the hospital. 3L NC 92-96%. admits to SOB on exertion. pt does get tachy with ambulation, HR goes up to 130s-140s but then comes back down
with rest. pt was able to use the BSCx1 assist to have a BM tonight. shingles to left chest and neck noted, scabbed over. no drainage noted. pt constantly complaining of pain to whole body/shingles. says it is a constant pain. medicated per JUN. pt
now on airborne precautions per MD order.
[2024-09-06] MEDS: STERILE WATER FOR INJECTION 10 ML IV ×3 (01:59→17:12)
[2024-09-06] MEDS: MAXIPIME 2000 MG IV ×3 (01:59→17:12)
[2024-09-06] MEDS: DILAUDID 0.25 MG IV ×2 (02:00→06:23)
[2024-09-06] MEDS: FLAGYL 500 MG 100 IV (05:01)
[2024-09-06 05:40] LABS: Hematocrit 27.7 % (39.0-52.0); Hemoglobin 9.1 g/dL (13.0-18.0); Mean Corp Hgb Conc. 32.9 g/dL (33.0-37.0); Mean Corpuscular Hgb 29.7 pg (27.0-31.0); Mean Corpuscular Volume 90.5 fL (80.0-94.0); Mean Platelet Volume 9.3 fL (7.4-10.4); Platelet Count 376 10^3/uL (130-400); Red Blood Cell Count 3.06 10^6/uL (4.70-6.10); Red Cell Dist. Width 16.3 % (11.5-14.5)
[2024-09-06 05:55] LABS: ALT (SGPT) 25 U/L (0-50); AST (SGOT) 23 U/L (17-59); Albumin 2.3 g/dl (3.5-5.0); Alkaline Phosphatase 100 U/L (38-126); Blood Urea Nitrogen 17 mg/dl (9-20); Calcium 7.5 mg/dl (8.4-10.2); Carbon Dioxide 23 mmol/L (22-30); Chloride 112 mmol/L (98-107); Estimated Creatinine Clearance 69 ml/min; Glucose 92 mg/dl (70-99); Potassium 3.5 mmol/L (3.5-5.1); Sodium 137 mmol/L (135-145); Total Bilirubin 0.6 mg/dl (0.2-1.3); Total Protein 4.7 g/dl (6.3-8.2); eGFR > 60.00
[2024-09-06] MEDS: SPIRIVA RESPIMAT 2.5 MCG 2 PUFF INH (07:43)
[2024-09-06] MEDS: SYMBICORT 160/4.5 MCG INHALER 2 PUFF INH ×2 (07:43→19:36)
--- NOTE | 2024-09-06 08:22 | W.PN.HOSP.TC ---
Today's Communication/Plan
-
switch to oral pain meds
scheduled Neurontin for herpetic pain
cont Abx pending decision from pulm on further mgmt
Assessment / Plan
Assessment / Plan
78yo M with PMHX of COPD, squamous cell CA of the lung s/p SBRT iin 12/04 and proton therapy in ec 2023 came with SOB found symptomatic anemia (s/p EGD on 08/30/24). Had some persistent patchy opacitied in June thought to be 2/2 radiation
pneumonitis and was started on Prednisone. Also concern for R shoulder herpes zoster started in June also. Managed for hypoxia 2/2 possible R sided pneumonia, cannot exclude metastatic CA
A/P:
#Multifocal pneumonia with acute hypoxic respiratory failure
#Lingular infiltrate with area of necrosis
#Mild mediastinal adenopathy
#small right upper lobe and left upper lobe nodules
Completed outpatient steroids
empiric Abx- cefepime/flagyl as per director of rooms
Follow up CT on 09/05/24: increased R pleural effusion, increase in size of masslike opacities in RLL and RUL, slight increase in size of small right upper lobe and left upper lobe nodules
Might benefit from bronch as per oncology
Elevated procal not informative in CA patient
#Symptomatic anemia
#Acute esophagitis
s/p EGD by GI: non-bleeding duodenal and esophageal ulcers
GI to Repeat upper endoscopy in 8 weeks to check healing
Path neg for CMV or HSV infection
PPI BID
s/p 3 units PRBC
Serial Hgb - stable
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
valacyclovir empirically, if not improving - will need culturing
follow LFT
airborne precautions
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
chronic
planned for dentist visit, but did not get chance yet due to hospitalizations
#Non-ischemic myocardial injury 2/2 hypoxia, anemia
plato-ed at 0.267
no chest pain
#COPD not in exacerbation
cont bronchodilators
#Paroxysmal nocturnal dyspnea
#Cataracts
#asymptomatic bradycardia
cont home meds
#Hypocalcemia
replete and follow
check vit D 0.25
DVT ppx on hep
Full code
I have spent at least 58min reviewing chart, test results, communication with consultants and providing direct patient care
Anticipated Discharge: > 48 hours
Subjective/Interval History
-
Date of Service: September 06, 2024
Objective Data
-
Labs:
Laboratory Results
09/06/24
05:10
WBC 10.0
Hgb 9.1 L
Hct 27.7 L
Plt Count 376
Sodium 137
Potassium 3.5
Chloride 112 H
Carbon Dioxide 23
BUN 17
Creatinine 0.7
Glucose 92
Calcium 7.5 L
Total Bilirubin 0.6
AST 23
ALT 25
Alkaline Phosphatase 100
Vital Signs:
Vital Signs
Temp Pulse Resp BP Pulse Ox
97.0 F 114 22 121/64 94
09/06/24 03:20 09/06/24 06:00 09/06/24 06:00 09/06/24 06:00 09/06/24 06:00
I&O
09/05/24 09/06/24 09/07/24
06:59 06:59 06:59
Intake Total 720 / 720
Output Total 600 / 600 150 / 150
Balance -600 / -600 570 / 570
Review of Systems
-
History Source: Patient
Constitutional: Reports Other (whole body aches)
Physical Exam
-
General: No Apparent Distress
HEENT: Other (ulcer on R side of the tongue 2/2 poor dentition and repetitive trauma of the tongue from chopped tooth)
Skin: Other (red resh with crusted lesions on L shoulder)
Neuro: Awake, Alert, Oriented and AO x 3
[2024-09-06] MEDS: MAGIC OR MIRACLE MOUTHWASH 5 ML PO ×4 (08:43→21:06)
[2024-09-06] MEDS: NEURONTIN 300 MG PO ×3 (08:43→21:06)
[2024-09-06] MEDS: DESENEX/MITRAZOL/ZEASORB 1 APPLIC TOPICAL ×2 (08:43→19:50)
[2024-09-06] MEDS: VALTREX 1000 MG PO ×3 (08:43→21:06)
[2024-09-06] MEDS: PROTONIX 40 MG PO ×2 (08:43→19:50)
[2024-09-06] MEDS: MYCOSTATIN ORAL SUSPENSION 5 ML PO ×4 (08:43→21:06)
[2024-09-06] MEDS: HEPARIN 5000 UNITS SC ×2 (08:43→19:50)
[2024-09-06] MEDS: ROXICODONE 10 MG PO ×2 (08:50→15:00)
--- NOTE | 2024-09-06 08:54 | W.PN.PUL3 ---
Today's Communication / Plan
-
Plan for bronchoscopy 09/07 and 1:30 PM
N.p.o. after midnight
Okay to take meds in the morning and light sips of water early a.m.
Continue antibiotics
May require infectious disease evaluation depending on findings
Reviewed plan at length with and patient
Assessment
-
Patient is a 78-year-old male with previous history of COPD, squamous cell carcinoma of the lung, hyperlipidemia presenting to the ER with shortness of breath. He notes that he has had progressive decline of his shortness of breath in the past
few weeks. He also reports generalized weakness, dizziness.
Patient has h/o localized NSCLC, s/p RLL SBRT in November 2023 at [facility], and proton RT at [facility] in Mar 2024 for in-field recurrence. He's never had chemo. He had f/u with rad onc in late June, and CT scans done at OSH showed patchy opacities in right
mid and right lower lung, thought to be radiation pneumonitis. He was started on Prednisone 80mg/d, with a slow taper (10mg bid at the time of this admission). He was recently diagnosed with shingles, and has been taking NSAIDs. He presented to the
hospital with weakness, and reported weeks of melena. Hgb was 5. He was given 3u PRBCs. EGD showed UGI ulcerations. PPI was changed to BID. Prednisone was stopped.
CT chest was done on 08/31/24 to evaluate dyspnea, and showed bilateral airspace opacities and nodular opacities, concerning for pneumonia. There is new mediastinal DINAH. He was started on Cepefime and Flagyl..
CT 09/05/2024 shows progressive disease
#1. Multifocal pulmonary opacities. Differential diagnosis includes multifocal pneumonia, lymphangitic spread of known lung cancer versus radiation pneumonitis. Multiple nodular opacities are more suspicious for infection/malignancy rather than
radiation related changes.
- Patient has been on prednisone taper as outpatient for suspected radiation pneumonitis, currently stopped due to shingles
- Patient has been on cefepime and Flagyll
- WBC count normal, no fever. Cultures have stayed negative
- CT chest 09/05 with progressive disease right side, stable cavitary process in the lingula
- At risk of atypical infections. Plan for bronchoscopy with C arm in anesthesia 09/07 at 130pm. Will assess lingula, right upper lobe and right lower lobe
Reviewed plan at length with at bedside
#2. History of non-small cell lung cancer, RLL.
- S/p RLL SBRT in November 2023. Followed by proton radiation at [facility] in March 2024 for infield recurrence.
- CT scan 08/31, shows decreased right lower lobe opacity however multiple new nodular opacities bilaterally concerning for infection versus tumor. This is progressive per CT chest 09/05
#3. Lingular infiltrate with area of necrosis. Necrotizing pneumonia with pulmonary abscess versus necrotizing malignancy
- Continue cefepime and IV Flagyl
- Plan for bronchoscopy 09/07
#4. h/o COPD/Emphysema
-Patient follows up with [facility]. Last pulmonary function test showed moderate obstruction with moderate diffusion impairment
-Continue Spiriva and Symbicort
-Continue albuterol as needed. Not actively wheezing, hold off on steroids. Continue antibiotic
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
PNA
Bradycardia
Panlobular emphysema
Paroxysmal nocturnal dyspnea
COPD, follows with Tommy
Moderate obstruction on PFTs
Maintained on Breztri
Squamous cell lung cancer, RLL
L inguinal hernia
Recent COVID-19 (04/2024)
Hernia surgery right
Appendectomy
Mastoid surgery as baby
Cataracts bilateral
Robotic asst lap repair left inguinal hernia with mesh ([facility]) 06/2024
Diagnostic Data
Chest X-Ray: 08/29/24- Opacification of the right lung base in part secondary to the patient's known right lower lobe lung cancer, with suspicion for accompanying postobstructive atelectasis or pneumonia. New opacity in the mid to lower left lung,
which may represent malignancy or pneumonia. No pneumothorax or large pleural effusion. The cardiomediastinal silhouette is stable. Chronic degenerative changes of the spine.
12/21/23- Mass projects over the right lung base, also seen on prior CT dated 12/15/2023. No large pleural effusion on either side.
CT Scan: CHEST 08/31/24- 1. Interval decrease in size of previously seen mass at the base of the right lower lobe.
2. New bilateral interstitial and airspace opacities with numerous subcentimeter nodular opacities, findings most likely related to pneumonia. Associated with this, there is added airspace consolidation in the right upper lobe which measures up to
2.9 cm in diameter. Most likely related to infection however mass not definitively excluded, recommend follow-up to resolution. There is also dense airspace consolidation in the lingula which measures up to 7.5 cm in diameter most likely related to
pneumonia. Within this consolidation, there is 1.9 cm probable pulmonary abscess as above.
3. Very small bilateral pleural effusions, right greater than left.
4. Mediastinal lymphadenopathy, new as compared with previous.
5. Coronary and aortic atherosclerosis.
12/15/23- 1. 4.8 x 4.8 x 3.5 cm irregular soft tissue mass within the RIGHT lower lobe abutting the diaphragm with spiculated margins compatible with patient's known primary lung cancer. No definitive evidence for metastatic disease within the
chest. Nonspecific 8.7 mm nodule within the lateral right upper lobe which on retrospective review did not appear to be FDG avid on the PET/CT from 12/04/2023.
2. Mild to moderate centrilobular emphysema within the upper lobes.
3. Densely calcified coronary arteries.
Echo: 09/09/22- 1. Normal left ventricular size and function, EF 55-60%
2. Thickened mitral leaflets with trace mitral regurgitation, mitral chordal calcification, and normal left atrium
3. Aortic sclerosis without stenosis or regurgitation
4. Normal right heart with normal pulmonary artery pressure
There are no prior studies available for comparison.
PFT's:
Reports and relevant images were personally reviewed.
Total time spent on this consultation 46 minutes which includes review of history, physical exam, medications, laboratory data, personal review of imaging, extensive review of outpatient records, discussion with care team and respiratory therapy.
Subjective Data
-
Date of Service:
Date of Service: September 06, 2024
Chief Complaint: Pulmonary Follow Up
Subjective:
Patient still feeling fatigue. He has a productive cough, not expectorating. Denies obvious blood. Left-sided chest discomfort is improved. Denies nausea, abdominal pain, diarrhea. Appears to be in decent spirits, at bedside
Objective Data
Data Reviewed
Vital Signs / I&O / Oxygen:
Vital Signs
Temp Pulse Resp BP Pulse Ox
97.0 F 114 22 121/64 94
09/06/24 03:20 09/06/24 06:00 09/06/24 06:00 09/06/24 06:00 09/06/24 06:00
Intake and Output
09/05/24 09/06/24 09/07/24
06:59 06:59 06:59
Intake Total 720 / 720
Output Total 600 / 600 150 / 150
Balance -600 / -600 570 / 570
SaO2 94
Nasal Cannula flow liters per 3
minute
Physical Exam
General: Comfortable
HEENT: Normocephalic, Anicteric and Moist Mucous Membranes
Cardiovascular: S1-S2, Regular Rhythm, Murmur (n), Rub (n) and Peripheral Edema (n)
Respiratory: Wheeze (Mild), Crackles (n), Rhonchi (n), Non-Labored Respirations and Stridor (n)
GI: Soft, Non Distended and Non Tender
Neurology: Awake, Alert and No Motor Deficits (Able to sit up without assistance)
Skin: Warm, Dry and Rash (Mild erythematous macular rash involving left anterior chest into neck)
Labs/Micro/Reports
Lab Data
09/06/24 05:10
09/06/24 05:10
Microbiology
08/31/24 16:50 Blood/Venous Blood Culture - Final
No Growth - Final Report
08/31/24 16:02 Blood/Venous Blood Culture - Final
No Growth - Final Report
[2024-09-06 09:22] LABS: Absolute Neutrophils -Man Diff 8.6 10^3/uL (1.4-6.5); Band Neutrophils 1 % (0-3); Lymphocytes 4 % (20-51); Metamyelocytes 2 % (-); Myelocytes 8 % (-); Segmented Neutrophils 85 % (42-75)
[2024-09-06 09:23] LABS: Normal RBC Morphology Yes; Platelets Checked Yes; Total Cells Counted 100
[2024-09-06 09:47] LABS: Vitamin D, 25-OH*** < 12.8 ng/mL (30-80)
[2024-09-06] MEDS: CALCIUM GLUCONATE 100 IV (10:24)
--- NOTE | 2024-09-06 10:32 | W.PN.ONC2 ---
Today's Communication / Plan
-
.
Impression
Impression
UGI bleed from prednisone + NSAIDs
Blood loss anemia
EGD non-bleeding duodenal and esophageal ulcers
right lung cancer, s/p SBRT in 11/2023, proton radiation 03/2024
?radiation pneumonitis, for which he was started on Prednisone late June 2024
recent zoster, w/ PHN
CT chest 09/05/24: increased R pleural effusion, increase in size of masslike opacities in RLL and RUL, slight increase in size of small right upper lobe and left upper lobe nodules
Plan
Plan
Pulmonary planning bronch 09/07 to evaluate further
on IV abx
Watch for adrenal insufficiency with abrupt stopping of steroids
PPI BID, OP EGD planned 8 weeks
no iron deficiency
on valacyclovir for shingles & gabapentin for PHN
at bedside provided updates and questions answered
Subjective/Objective
Subjective
no new complaints
3L NC
denies pain
Vital Signs:
Vital Signs
Temp Pulse Resp BP Pulse Ox
97.3 F 108 20 101/64 92
09/06/24 07:20 09/06/24 10:00 09/06/24 10:00 09/06/24 10:00 09/06/24 10:00
Lab Results:
Laboratory Data
WBC 10.0 10^3/uL (4.8-10.8) 09/06/24 05:10
Hgb 9.1 g/dL (13.0-18.0) L 09/06/24 05:10
Plt Count 376 10^3/uL (130-400) 09/06/24 05:10
eGFR > 60.00 09/06/24 05:10
Physical Exam
General: No Apparent Distress, Conversant and Appears Chronically Ill
HEENT: Negative Jaundice
Cardiology: Normal Sinus Rhythm
Pulmonary: clear
GI: Soft and Normal Bowel Sounds
Extremities: No C/C/E
Neurology: Non Focal, No Lateralizing Symptoms and No Word Finding Difficulty
Skin: Warm, Dry and Rash (shingles rash to left upper chest and left arm with crusting)
Psych: Calm and Intact Judgement/Insight
[2024-09-06] MEDS: DRISDOL (VITAMIN D2) 50000 UNITS PO (12:25)
--- NOTE | 2024-09-06 15:06 | PTCARENOTE ---
Patient AOx3. Patient is forgetful at times. Bed alarm and chair alarm on and audible. NSR with BBB and PVC's on monitor. Patient tachy during ambulation with HR in 150's. BP stable. 3L NC with SpO2 greater than 92%. Dyspnea on exertion. Poor
appetite. PRN pain medication provided. Airborne precautions maintained. Assist x1 with RW when OOB. at bedside. Call vaughan within reach, bed in lowest position, and bed of wheels locked.
[2024-09-06 16:47] LABS: Hematocrit 30.8 % (39.0-52.0); Hemoglobin 10.3 g/dL (13.0-18.0)
[2024-09-06 17:04] LABS: Blood Urea Nitrogen 17 mg/dl (9-20); Calcium 7.9 mg/dl (8.4-10.2); Carbon Dioxide 22 mmol/L (22-30); Chloride 110 mmol/L (98-107); Estimated Creatinine Clearance 60 ml/min; Glucose 123 mg/dl (70-99); Potassium 3.7 mmol/L (3.5-5.1); Sodium 137 mmol/L (135-145); eGFR > 60.00
--- NOTE | 2024-09-06 17:10 | W.PN.UPDATE ---
Update Note
Progress Note Update
remains tachycardic and borderline low BP similar to prior. Most likely pain-related
CT chest reviewed and discussed with radiologist - no pericardial effusion noted
Small bolus ordered as patient dizzy and more tachy when upright.
H&H and electrolytes withing acceptable limits, no significant worsening since AM
recheck Cortisol as monitoring for adrenal insufficiency too, however shuld not present with tachycardia
EKG
[2024-09-06] MEDS: NSS 500 IV (17:13)
--- NOTE | 2024-09-06 17:21 | PTCARENOTE ---
Dr. Hahn made aware that patients HR was in 130's-140's and BP 95/65. Patient c/o feeling dizzy and SOB while sitting in the chair. SpO2 93% on 4L NC. Bloodwork ordered and sent to the lab. EKG and orthostatic VS completed per order. See
'worklist' for results. Assist x1 back to bed. Bolus order and running. Patient resting comfortably. Care ongoing.
[2024-09-06 17:37] LABS: Cortisol, Random 27.7 ug/dl
[2024-09-06] MEDS: FLAGYL 500 MG PO (19:50)
--- NOTE | 2024-09-06 22:35 | PTCARENOTE ---
assumed care of patient, pt is AAOx3, flat, withdrawn, forgetful. bed alarm on. 4L NC 92%. SOB on exertion, lungs course. pt aware he is NPO at midnight. able to use urinal at bedside without issues. BP soft but MAP stable. pt educated about eating
and drinking more. HR 90s-110s. called for update and voiced concerns over low BP. all questions answered as able. pt did verbalize that shingles pain and mouth pain was better. care ongoing.
[2024-09-07] VITALS (24 sets, daily range): BP systolic 96–139; BP diastolic 48–113; BMI 21.8
[2024-09-07] MEDS: STERILE WATER FOR INJECTION 10 ML IV ×3 (01:19→17:21)
[2024-09-07] MEDS: MAXIPIME 2000 MG IV ×3 (01:19→17:21)
[2024-09-07 04:32] LABS: Hematocrit 25.8 % (39.0-52.0); Hemoglobin 8.9 g/dL (13.0-18.0); Mean Corp Hgb Conc. 34.5 g/dL (33.0-37.0); Mean Corpuscular Hgb 30.2 pg (27.0-31.0); Mean Corpuscular Volume 87.5 fL (80.0-94.0); Mean Platelet Volume 9.5 fL (7.4-10.4); Platelet Count 333 10^3/uL (130-400); Red Blood Cell Count 2.95 10^6/uL (4.70-6.10); White Blood Cell Count 9.9 10^3/uL (4.8-10.8)
--- NOTE | 2024-09-07 04:49 | PTCARENOTE ---
Addendum entered by Carmelo Myers RN 09/07/24 04:53:
oxygen requirement increased during the night. pt was only 88% 4L, pt now on 7L, 95%.
Original Note:
pt woke up this AM saying he feels weak- BP has been on soft side for most of the night, but stable. pt did admit to only having fruit yesterday. educated patient on eating and drinking more to help with strength. pt verbalized understanding. pt
stated pain was better this morning, declined tylenol this AM. advised to let staff know if he needs any. using urinal and bedpan at this time d/t increased weakness. care ongoing.
[2024-09-07 04:59] LABS: ALT (SGPT) 20 U/L (0-50); AST (SGOT) 21 U/L (17-59); Albumin 2.1 g/dl (3.5-5.0); Alkaline Phosphatase 87 U/L (38-126); Blood Urea Nitrogen 17 mg/dl (9-20); Calcium 7.5 mg/dl (8.4-10.2); Carbon Dioxide 23 mmol/L (22-30); Chloride 111 mmol/L (98-107); Estimated Creatinine Clearance 62 ml/min; Glucose 97 mg/dl (70-99); Potassium 3.5 mmol/L (3.5-5.1); Sodium 137 mmol/L (135-145); Total Bilirubin 0.5 mg/dl (0.2-1.3); Total Protein 4.5 g/dl (6.3-8.2); eGFR > 60.00
[2024-09-07] MEDS: SPIRIVA RESPIMAT 2.5 MCG 2 PUFF INH (07:47)
[2024-09-07] MEDS: SYMBICORT 160/4.5 MCG INHALER 2 PUFF INH ×2 (07:47→20:02)
[2024-09-07] MEDS: CALCIUM GLUCONATE 100 IV (08:04)
[2024-09-07] MEDS: NEURONTIN 300 MG PO ×3 (08:05→21:24)
[2024-09-07] MEDS: VALTREX 1000 MG PO ×3 (08:05→21:24)
[2024-09-07] MEDS: HEPARIN 5000 UNITS SC ×2 (08:05→21:25)
[2024-09-07] MEDS: MYCOSTATIN ORAL SUSPENSION 5 ML PO ×4 (08:05→21:26)
[2024-09-07] MEDS: PROTONIX 40 MG PO ×2 (08:05→21:24)
[2024-09-07] MEDS: FLAGYL 500 MG PO ×2 (08:06→21:25)
[2024-09-07] MEDS: DESENEX/MITRAZOL/ZEASORB 1 APPLIC TOPICAL ×2 (08:06→21:23)
[2024-09-07] MEDS: TYLENOL 650 MG PO ×2 (08:07→13:21)
[2024-09-07] MEDS: MAGIC OR MIRACLE MOUTHWASH 5 ML PO ×4 (08:07→21:26)
--- NOTE | 2024-09-07 08:24 | W.PN.PUL3 ---
Today's Communication / Plan
-
Plan for bronchoscopy later today. Patient aware of risks
Plan to assess lingula, right upper lobe and right lower lobe for infection, obvious malignancy
Echocardiogram pending. To be done this morning
Will also order lower extremity Dopplers
Will give 1 dose of stress dose steroids this morning
Reviewed at length with patient and
Remains high risk situation
Assessment
-
Patient is a 78-year-old male with previous history of COPD, squamous cell carcinoma of the lung, hyperlipidemia presenting to the ER with shortness of breath. He notes that he has had progressive decline of his shortness of breath in the past
few weeks. He also reports generalized weakness, dizziness.
Patient has h/o localized NSCLC, s/p RLL SBRT in November 2023 at [facility], and proton RT at [facility] in Mar 2024 for in-field recurrence. He's never had chemo. He had f/u with rad onc in late June, and CT scans done at OSH showed patchy opacities in right
mid and right lower lung, thought to be radiation pneumonitis. He was started on Prednisone 80mg/d, with a slow taper (10mg bid at the time of this admission). He was recently diagnosed with shingles, and has been taking NSAIDs. He presented to the
hospital with weakness, and reported weeks of melena. Hgb was 5. He was given 3u PRBCs. EGD showed UGI ulcerations. PPI was changed to BID. Prednisone was stopped.
CT chest was done on 08/31/24 to evaluate dyspnea, and showed bilateral airspace opacities and nodular opacities, concerning for pneumonia. There is new mediastinal DINAH. He was started on Cepefime and Flagyl..
CT 09/05/2024 shows progressive disease
Tachycardia and marginal blood pressure noted yesterday p.m., improved this morning
Patient feels slightly improved overall
#1. Multifocal pulmonary opacities. Differential diagnosis includes multifocal pneumonia, lymphangitic spread of known lung cancer versus radiation pneumonitis. Multiple nodular opacities are more suspicious for infection/malignancy rather than
radiation related changes.
- Patient has been on prednisone taper as outpatient for suspected radiation pneumonitis, currently stopped due to shingles
- Patient has been on cefepime and Flagyll
- WBC count normal, no fever. Cultures have stayed negative
- CT chest 09/05 with progressive disease right side, stable cavitary process in the lingula
- At risk of atypical infections. Plan for bronchoscopy with C arm in anesthesia 09/07 at 130pm. Will assess lingula, right upper lobe and right lower lobe
Reviewed plan at length with at bedside
Reviewed risks of procedure with anesthesia including respiratory failure, cardiac arrhythmia, neurological event
Patient would like to proceed. All questions answered
#2. History of non-small cell lung cancer, RLL.
- S/p RLL SBRT in November 2023. Followed by proton radiation at [facility] in March 2024 for infield recurrence.
- CT scan 08/31, shows decreased right lower lobe opacity however multiple new nodular opacities bilaterally concerning for infection versus tumor. This is progressive per CT chest 09/05
#3. Lingular infiltrate with area of necrosis. Necrotizing pneumonia with pulmonary abscess versus necrotizing malignancy
- Continue cefepime and IV Flagyl
- Plan for bronchoscopy 09/07
#4. h/o COPD/Emphysema
-Patient follows up with [facility]. Last pulmonary function test showed moderate obstruction with moderate diffusion impairment
-Continue Spiriva and Symbicort
-Continue albuterol as needed. Not actively wheezing, hold off on steroids. Continue antibiotic
#5. Tachycardia
- Patient with mild tachycardia, without symptoms. Marginal blood pressure yesterday noted with ambulating to the bathroom
- Will give 1 dose of stress dose steroids this morning. Patient on chronic prednisone preadmission
- EKG with sinus tachycardia, right bundle branch block
- Echocardiogram is pending. Will also check ultrasound of legs
- Patient is high risk for thromboembolic disease. Continue with DVT prophylaxis
- CT chest with contrast 08/31/2024, not a PE
Of note, had an extensive discussion with the patient and regarding long-term goals
states that discussion in the past concluded that no aggressive measures will be pursued
However, we will pursue aggressive measures john-procedure and patient and are aware of this
Patient would like to discuss further with his long-term goals postprocedure depending on findings and clinical course
Remains full code
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
PNA
Bradycardia
Panlobular emphysema
Paroxysmal nocturnal dyspnea
COPD, follows with Tommy
Moderate obstruction on PFTs
Maintained on Breztri
Squamous cell lung cancer, RLL
L inguinal hernia
Recent COVID-19 (04/2024)
Hernia surgery right
Appendectomy
Mastoid surgery as baby
Cataracts bilateral
Robotic asst lap repair left inguinal hernia with mesh ([facility]) 06/2024
Diagnostic Data
Chest X-Ray: 08/29/24- Opacification of the right lung base in part secondary to the patient's known right lower lobe lung cancer, with suspicion for accompanying postobstructive atelectasis or pneumonia. New opacity in the mid to lower left lung,
which may represent malignancy or pneumonia. No pneumothorax or large pleural effusion. The cardiomediastinal silhouette is stable. Chronic degenerative changes of the spine.
12/21/23- Mass projects over the right lung base, also seen on prior CT dated 12/15/2023. No large pleural effusion on either side.
CT Scan: CHEST 08/31/24- 1. Interval decrease in size of previously seen mass at the base of the right lower lobe.
2. New bilateral interstitial and airspace opacities with numerous subcentimeter nodular opacities, findings most likely related to pneumonia. Associated with this, there is added airspace consolidation in the right upper lobe which measures up to
2.9 cm in diameter. Most likely related to infection however mass not definitively excluded, recommend follow-up to resolution. There is also dense airspace consolidation in the lingula which measures up to 7.5 cm in diameter most likely related to
pneumonia. Within this consolidation, there is 1.9 cm probable pulmonary abscess as above.
3. Very small bilateral pleural effusions, right greater than left.
4. Mediastinal lymphadenopathy, new as compared with previous.
5. Coronary and aortic atherosclerosis.
12/15/23- 1. 4.8 x 4.8 x 3.5 cm irregular soft tissue mass within the RIGHT lower lobe abutting the diaphragm with spiculated margins compatible with patient's known primary lung cancer. No definitive evidence for metastatic disease within the
chest. Nonspecific 8.7 mm nodule within the lateral right upper lobe which on retrospective review did not appear to be FDG avid on the PET/CT from 12/04/2023.
2. Mild to moderate centrilobular emphysema within the upper lobes.
3. Densely calcified coronary arteries.
Echo: 09/09/22- 1. Normal left ventricular size and function, EF 55-60%
2. Thickened mitral leaflets with trace mitral regurgitation, mitral chordal calcification, and normal left atrium
3. Aortic sclerosis without stenosis or regurgitation
4. Normal right heart with normal pulmonary artery pressure
There are no prior studies available for comparison.
PFT's:
Reports and relevant images were personally reviewed.
Total time spent on this consultation 46 minutes which includes review of history, physical exam, medications, laboratory data, personal review of imaging, extensive review of outpatient records, discussion with care team and respiratory therapy.
Subjective Data
-
Date of Service:
Date of Service: September 07, 2024
Chief Complaint: Pulmonary Follow Up
Subjective:
Events overnight noted. Patient with increased tachycardia yesterday p.m. with some lightheadedness with ambulating to the bathroom. Denied chest pain. [place] better overnight and feels better this morning. However oxygen requirement increased to
7 L. Presently 97% comfortable. Denies nausea, palpitations, abdominal pain. at bedside
Objective Data
Data Reviewed
Vital Signs / I&O / Oxygen:
Vital Signs
Temp Pulse Resp BP Pulse Ox
98.1 F 95 19 124/68 96
09/07/24 07:28 09/07/24 06:00 09/07/24 06:00 09/07/24 06:00 09/07/24 06:00
Intake and Output
09/06/24 09/07/24 09/08/24
06:59 06:59 06:59
Intake Total 720 / 720 1460 / 1460
Output Total 150 / 150 150 / 150
Balance 570 / 570 1310 / 1310
SaO2 96
Nasal Cannula flow liters per 7
minute
Physical Exam
General: Comfortable
HEENT: Normocephalic, Anicteric and Moist Mucous Membranes
Cardiovascular: S1-S2, Regular Rhythm, Murmur (n), Rub (n) and Peripheral Edema (n)
Respiratory: Wheeze (Mild), Crackles (n), Rhonchi (n), Non-Labored Respirations and Stridor (n)
GI: Soft, Non Distended and Non Tender
Neurology: Awake, Alert and No Motor Deficits (Able to sit up without assistance)
Skin: Warm, Dry and Rash (Mild erythematous macular rash involving left anterior chest into neck)
Labs/Micro/Reports
Lab Data
09/07/24 04:22
09/07/24 04:22
Microbiology
08/31/24 16:50 Blood/Venous Blood Culture - Final
No Growth - Final Report
08/31/24 16:02 Blood/Venous Blood Culture - Final
No Growth - Final Report
--- NOTE | 2024-09-07 08:47 | W.PN.ONC2 ---
Documented by User: AAKASH Wahl 09/07/24 10:36
Today's Communication / Plan
-
.
Impression
Impression
UGI bleed from prednisone + NSAIDs
Blood loss anemia
EGD non-bleeding duodenal and esophageal ulcers
right lung cancer, s/p SBRT in 11/2023, proton radiation 03/2024
?radiation pneumonitis, for which he was started on Prednisone late June 2024
recent zoster, w/ PHN
CT chest 09/05/24: increased R pleural effusion, increase in size of masslike opacities in RLL and RUL, slight increase in size of small right upper lobe and left upper lobe nodules
Plan
Plan
Pulmonary planning bronch 09/07 to evaluate further
on IV abx
Watch for adrenal insufficiency with abrupt stopping of steroids
PPI BID, OP EGD planned 8 weeks
no iron deficiency
on valacyclovir for shingles & gabapentin for PHN
at bedside provided updates and questions answered
Subjective/Objective
Subjective
increase supplemental O2 overnight
Vital Signs:
Vital Signs
Temp Pulse Resp BP Pulse Ox
98.1 F 95 19 124/68 96
09/07/24 07:28 09/07/24 06:00 09/07/24 06:00 09/07/24 06:00 09/07/24 06:00
Lab Results:
Laboratory Data
WBC 9.9 10^3/uL (4.8-10.8) 09/07/24 04:22
Hgb 8.9 g/dL (13.0-18.0) L 09/07/24 04:22
Plt Count 333 10^3/uL (130-400) 09/07/24 04:22
eGFR > 60.00 09/07/24 04:22
Physical Exam
General: No Apparent Distress, Conversant and Appears Chronically Ill
HEENT: Negative Jaundice
Cardiology: Normal Sinus Rhythm
Pulmonary: clear
GI: Soft and Normal Bowel Sounds
Extremities: No C/C/E
Neurology: Non Focal, No Lateralizing Symptoms and No Word Finding Difficulty
Skin: Warm, Dry and Rash (shingles rash to left upper chest and left arm with crusting)
Psych: Calm and Intact Judgement/Insight

Documented by User: Jethro Lewis MD 09/07/24 11:49
Plan
Plan
Pulmonary planning bronch 09/07 to evaluate further
on IV abx
Watch for adrenal insufficiency with abrupt stopping of steroids
PPI BID, OP EGD planned 8 weeks
no iron deficiency
on valacyclovir for shingles & gabapentin for PHN
at bedside provided updates and questions answered
Oncology Addendum:
Patient seen and evaluated and agree w/ FOUNDER note and plan as outlined
-h/o NSCLC - s/p SBRT - proton XRT - 04/05
-SOB - multifactorial
-bronchoscopy planned for later today
will continue to follow with you
--- NOTE | 2024-09-07 09:20 | PTCARENOTE ---
Patient received from light technician. Patient resting comfortably in bed. No events noted over night. Continued complaints of pain, generalized but more focused on neck and upper back. Scabs noted in areas of pain from recent scabies. Continuing
ABX. Pain control. Topical cream PRN. Patient scheduled for Bronchoscopy today as well as an ECHO and LE Ultrasound. Call vaughan in reach.
[2024-09-07] MEDS: SOLU-CORTEF 100 MG IV (09:46)
--- NOTE | 2024-09-07 16:04 | W.PN.UPDATE ---
Update Note
Progress Note Update
Bronchoscopy note
Indications: Persistent bilateral infiltrates
Informed consent: Obtained from patient
Findings: See report for complete details. Significant thick plugs throughout tracheobronchial tree which seem to be predominantly noted in right lower lobe medial segment, right upper lobe posterior segment, left upper lobe/lingula. These are the
regions that are abnormal on imaging. No endobronchial abnormality. Airway was cleared. BAL completed in right upper lobe posterior segment, right lower lobe medial basal segment and sent for AFB/fungal/bacterial culture and cytology.
Fluoroscopy was used to locate lingular cavitary lesion. Brushings and BAL completed, sent for cytology and AFB/fungal/bacterial culture. Patient tolerated procedure well.
Obtain chest x-ray to rule out left-sided pneumothorax
Await cytology, cultures
--- NOTE | 2024-09-07 16:13 | W.PN.HOSP.TC ---
Today's Communication/Plan
-
cont abx
bronch
Assessment / Plan
Assessment / Plan
78yo M with PMHX of COPD, squamous cell CA of the lung s/p SBRT iin 12/04 and proton therapy in ec 2023 came with SOB found symptomatic anemia (s/p EGD on 08/30/24). Had some persistent patchy opacitied in June thought to be 2/2 radiation
pneumonitis and was started on Prednisone. Also concern for R shoulder herpes zoster started in June also. Managed for hypoxia 2/2 possible R sided pneumonia, cannot exclude metastatic CA
A/P:
#Multifocal pneumonia with acute hypoxic respiratory failure
#Lingular infiltrate with area of necrosis
#Mild mediastinal adenopathy
#small right upper lobe and left upper lobe nodules
Completed outpatient steroids
empiric Abx- cefepime/flagyl as per imaging clerk
Follow up CT on 09/05/24: increased R pleural effusion, increase in size of masslike opacities in RLL and RUL, slight increase in size of small right upper lobe and left upper lobe nodules
Might benefit from bronch as per oncology
Elevated procal not informative in CA patient
Bronch on 09/07/24
#Symptomatic anemia
#Acute esophagitis
s/p EGD by GI: non-bleeding duodenal and esophageal ulcers
GI to Repeat upper endoscopy in 8 weeks to check healing
Path neg for CMV or HSV infection
PPI BID
s/p 3 units PRBC
Serial Hgb - stable
#Hx of radiation pneumonitis
off steroids
cortisol appropriate - no concern for developing adrenal insufficiency
#Ambulatory deficiency
PT/OT - for rehab upon d/c
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
improving
valacyclovir empirically, if not improving - will need culturing
follow LFT
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
chronic
planned for dentist visit, but did not get chance yet due to hospitalizations
#Non-ischemic myocardial injury 2/2 hypoxia, anemia
plato-ed at 0.267
no chest pain
#COPD not in exacerbation
cont bronchodilators
#Paroxysmal nocturnal dyspnea
#Cataracts
#asymptomatic bradycardia
cont home meds
#Hypocalcemia
replete and follow
check vit D 0.25
DVT ppx on hep
Full code
I have spent at least 38min reviewing chart, test results, communication with consultants and providing direct patient care
Anticipated Discharge: > 48 hours
Subjective/Interval History
-
Date of Service: September 07, 2024
Objective Data
-
Labs:
Laboratory Results
09/07/24
04:22
WBC 9.9
Hgb 8.9 L
Hct 25.8 L
Plt Count 333
Sodium 137
Potassium 3.5
Chloride 111 H
Carbon Dioxide 23
BUN 17
Creatinine 0.8
Glucose 97
Calcium 7.5 L
Total Bilirubin 0.5
AST 21
ALT 20
Alkaline Phosphatase 87
Vital Signs:
Vital Signs
Temp Pulse Resp BP Pulse Ox
98.2 F 95 19 124/68 92
09/07/24 11:41 09/07/24 06:00 09/07/24 06:00 09/07/24 06:00 09/07/24 10:04
I&O
09/06/24 09/07/24 09/08/24
06:59 06:59 06:59
Intake Total 720 / 720 1460 / 1460
Output Total 150 / 150 150 / 150
Balance 570 / 570 1310 / 1310
Review of Systems
-
History Source: Patient
All other systems: Reviewed and negative
Physical Exam
-
General: No Apparent Distress
HEENT: Normocephalic
Respiratory: Clear to Auscultation
GI: Soft, Nontender and Nondistended
Skin: Rash (crusted on L shoulder)
Neuro: Awake, Alert, Oriented and AO x 3
Psych: Calm
[2024-09-07] MEDS: SOLU-CORTEF 50 MG IV (17:21)
[2024-09-07] MEDS: SOLU-CORTEF IV (17:36)
--- NOTE | 2024-09-07 18:10 | CM ---
Patient with Hx lung cancer and shingles with Dx PNA, anemia. Plan bronchoscopy today. Airborne precautions. O2 3L. Receiving IV Abx, IV Steroids. PT recommends skilled rehab. OT recommends HH + support.
Met with patient and Lynnette; patient and now want short term SNF for rehab. Wif [facility] as preferences.
SNF referrals placed.
Plan follow up SNF referrals.
--- NOTE | 2024-09-07 18:12 | PTCARENOTE ---
Assumed care of Pt @ 1500 - Pt out of room getting bronchoscopy procedure. Rec'd Pt back in room ~ 1700 from PACU. Pt reported 'breathing feels better' post procedure. VSS; SR/ST on monitor; Will continue to monitor and assess.
[2024-09-08] VITALS (9 sets, daily range): BP systolic 107–135; BP diastolic 59–94; BMI 21.6
[2024-09-08] MEDS: SOLU-CORTEF 50 MG IV ×2 (01:06→06:04)
[2024-09-08] MEDS: STERILE WATER FOR INJECTION 10 ML IV ×3 (01:08→17:51)
[2024-09-08] MEDS: MAXIPIME 2000 MG IV ×3 (01:08→17:51)
--- NOTE | 2024-09-08 05:56 | PTCARENOTE ---
Patient slightly forgetful. Pt curses at tele monitor when alarming; support provided. Remains on 3L NC. Tearful this morning. Verbalized frustration over still being in the hospital. NSR/ST on telemetry. Denies pain. Shingles crusted over and dry.
No gi/gu complaints. Encouraged to reposition self in bed. Barrier cream applied to sacrum for redness. Call vaughan within reach.
[2024-09-08 06:10] LABS: Hemoglobin 9.3 g/dL (13.0-18.0); Mean Corp Hgb Conc. 33.2 g/dL (33.0-37.0); Mean Corpuscular Hgb 29.9 pg (27.0-31.0); Mean Platelet Volume 9.2 fL (7.4-10.4); Platelet Count 399 10^3/uL (130-400); Red Blood Cell Count 3.11 10^6/uL (4.70-6.10); Red Cell Dist. Width 16.4 % (11.5-14.5); White Blood Cell Count 12.7 10^3/uL (4.8-10.8)
[2024-09-08 06:31] LABS: ALT (SGPT) 23 U/L (0-50); AST (SGOT) 26 U/L (17-59); Albumin 2.4 g/dl (3.5-5.0); Alkaline Phosphatase 94 U/L (38-126); Blood Urea Nitrogen 23 mg/dl (9-20); Calcium 7.8 mg/dl (8.4-10.2); Carbon Dioxide 21 mmol/L (22-30); Chloride 112 mmol/L (98-107); Estimated Creatinine Clearance 61 ml/min; Glucose 139 mg/dl (70-99); Potassium 4.3 mmol/L (3.5-5.1); Sodium 138 mmol/L (135-145); Total Bilirubin 0.5 mg/dl (0.2-1.3); Total Protein 5.2 g/dl (6.3-8.2); eGFR > 60.00
[2024-09-08 06:37] LABS: Absolute Neutrophils -Man Diff 11.9 10^3/uL (1.4-6.5); Anisocytosis 1+; Band Neutrophils 0 % (0-3); Lymphocytes 4 % (20-51); Metamyelocytes 14 % (-); Monocytes 1 % (2-9); Normal RBC Morphology No; Platelets Checked Yes; Segmented Neutrophils 94 % (42-75); Total Cells Counted 100
[2024-09-08] MEDS: NEURONTIN 300 MG PO ×3 (08:02→22:28)
[2024-09-08] MEDS: FLAGYL 500 MG PO ×2 (08:02→20:00)
[2024-09-08] MEDS: PROTONIX 40 MG PO ×2 (08:02→20:02)
[2024-09-08] MEDS: VALTREX 1000 MG PO ×3 (08:02→22:28)
[2024-09-08] MEDS: HEPARIN 5000 UNITS SC ×2 (08:02→20:01)
[2024-09-08] MEDS: DESENEX/MITRAZOL/ZEASORB 1 APPLIC TOPICAL ×2 (08:03→20:01)
[2024-09-08] MEDS: MYCOSTATIN ORAL SUSPENSION 5 ML PO ×4 (08:03→22:29)
[2024-09-08] MEDS: MAGIC OR MIRACLE MOUTHWASH 5 ML PO ×4 (08:03→22:28)
[2024-09-08] MEDS: SPIRIVA RESPIMAT 2.5 MCG INH (08:08)
[2024-09-08] MEDS: SYMBICORT 160/4.5 MCG INHALER INH (08:08)
--- NOTE | 2024-09-08 08:39 | W.PN.ONC2 ---
Today's Communication / Plan
-
f/u BAL, brushing, culture and cytology results
Impression
Impression
h/o NSCLC - s/p SBRT - proton XRT - 04/05
UGI bleed from prednisone + NSAIDs
Blood loss anemia
EGD non-bleeding duodenal and esophageal ulcers
?radiation pneumonitis, for which he was started on Prednisone late June 2024
recent zoster, w/ PHN
CT chest 09/05/24: increased R pleural effusion, increase in size of masslike opacities in RLL and RUL, slight increase in size of small right upper lobe and left upper lobe nodules
Bronch 09/07 unresolving infiltrates, cavitary lingular disease, thick secretions. s/p BAL RUL, RLL, lingula. s/p brushings lingula
Plan
Plan
f/u BAL, brushing, culture and cytology results
on IV abx
PPI BID, OP EGD planned 8 weeks
no iron deficiency
on valacyclovir for shingles & gabapentin for PHN
at bedside provided updates and questions answered
Subjective/Objective
Subjective
3L NC, continues with cough
requring 2 assist with PT
Vital Signs:
Vital Signs
Temp Pulse Resp BP Pulse Ox
97.4 F 102 19 116/69 94
09/08/24 07:36 09/08/24 06:08 09/08/24 06:08 09/08/24 06:08 09/08/24 06:08
Lab Results:
Laboratory Data
WBC 12.7 10^3/uL (4.8-10.8) H 09/08/24 05:50
Hgb 9.3 g/dL (13.0-18.0) L 09/08/24 05:50
Plt Count 399 10^3/uL (130-400) 09/08/24 05:50
eGFR > 60.00 09/08/24 05:50
Physical Exam
General: No Apparent Distress, Conversant and Appears Chronically Ill
HEENT: Negative Jaundice
Cardiology: Normal Sinus Rhythm
Pulmonary: clear
GI: Soft and Normal Bowel Sounds
Extremities: No C/C/E
Neurology: Non Focal, No Lateralizing Symptoms and No Word Finding Difficulty
Skin: Warm, Dry and Rash (shingles rash to left upper chest and left arm with crusting)
Psych: Calm and Intact Judgement/Insight
--- NOTE | 2024-09-08 09:32 | W.PN.PUL3 ---
Today's Communication / Plan
-
Continue antibiotics
Await bronchoscopy results, cytology/cultures
Assessment
-
Patient is a 78-year-old male with previous history of COPD, squamous cell carcinoma of the lung, hyperlipidemia presenting to the ER with shortness of breath. He notes that he has had progressive decline of his shortness of breath in the past
few weeks. He also reports generalized weakness, dizziness.
Patient has h/o localized NSCLC, s/p RLL SBRT in November 2023 at [facility], and proton RT at [facility] in Mar 2024 for in-field recurrence. He's never had chemo. He had f/u with rad onc in late June, and CT scans done at OSH showed patchy opacities in right
mid and right lower lung, thought to be radiation pneumonitis. He was started on Prednisone 80mg/d, with a slow taper (10mg bid at the time of this admission). He was recently diagnosed with shingles, and has been taking NSAIDs. He presented to the
hospital with weakness, and reported weeks of melena. Hgb was 5. He was given 3u PRBCs. EGD showed UGI ulcerations. PPI was changed to BID. Prednisone was stopped.
CT chest was done on 08/31/24 to evaluate dyspnea, and showed bilateral airspace opacities and nodular opacities, concerning for pneumonia. There is new mediastinal DINAH. He was started on Cepefime and Flagyl..
CT 09/05/2024 shows progressive disease
Tachycardia and marginal blood pressure noted yesterday p.m., improved this morning
Patient feels improved post bronchoscopy 09/07
#1. Multifocal pulmonary opacities. Differential diagnosis includes multifocal pneumonia, lymphangitic spread of known lung cancer versus radiation pneumonitis. Multiple nodular opacities are more suspicious for infection/malignancy rather than
radiation related changes.
- Patient has been on prednisone taper as outpatient for suspected radiation pneumonitis, currently stopped due to shingles
- Patient has been on cefepime and Flagyll
- WBC count normal, no fever. Cultures have stayed negative
- CT chest 09/05 with progressive disease right side, stable cavitary process in the lingula
- Status post bronchoscopy 09/07. Significant secretions noted. Await cultures
#2. History of non-small cell lung cancer, RLL.
- S/p RLL SBRT in November 2023. Followed by proton radiation at [facility] in March 2024 for infield recurrence.
- CT scan 08/31, shows decreased right lower lobe opacity however multiple new nodular opacities bilaterally concerning for infection versus tumor. This is progressive per CT chest 09/05
- Await bronchoscopy results
#3. Lingular infiltrate with area of necrosis. Necrotizing pneumonia with pulmonary abscess versus necrotizing malignancy
- Continue cefepime and IV Flagyl
- Bronchoscopy results pending
#4. h/o COPD/Emphysema
-Patient follows up with [facility]. Last pulmonary function test showed moderate obstruction with moderate diffusion impairment
-Continue Spiriva and Symbicort
-Continue albuterol as needed. Not actively wheezing, hold off on steroids. Continue antibiotic
#5. Tachycardia
- Patient with mild tachycardia, without symptoms. Marginal blood pressure yesterday noted with ambulating to the bathroom
- Will give 1 dose of stress dose steroids this morning. Patient on chronic prednisone preadmission
- EKG with sinus tachycardia, right bundle branch block
- Echocardiogram is pending. Will also check ultrasound of legs
- Patient is high risk for thromboembolic disease. Continue with DVT prophylaxis
- CT chest with contrast 08/31/2024, not a PE
- Echocardiogram unremarkable, Doppler negative for DVT
Conditions present [facility]
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
PNA
Bradycardia
Panlobular emphysema
Paroxysmal nocturnal dyspnea
COPD, follows with Tommy
Moderate obstruction on PFTs
Maintained on Breztri
Squamous cell lung cancer, RLL
L inguinal hernia
Recent COVID-19 (04/2024)
Hernia surgery right
Appendectomy
Mastoid surgery as baby
Cataracts bilateral
Robotic asst lap repair left inguinal hernia with mesh ([facility]) 06/2024
Diagnostic Data
Chest X-Ray: 08/29/24- Opacification of the right lung base in part secondary to the patient's known right lower lobe lung cancer, with suspicion for accompanying postobstructive atelectasis or pneumonia. New opacity in the mid to lower left lung,
which may represent malignancy or pneumonia. No pneumothorax or large pleural effusion. The cardiomediastinal silhouette is stable. Chronic degenerative changes of the spine.
12/21/23- Mass projects over the right lung base, also seen on prior CT dated 12/15/2023. No large pleural effusion on either side.
CT Scan: CHEST 08/31/24- 1. Interval decrease in size of previously seen mass at the base of the right lower lobe.
2. New bilateral interstitial and airspace opacities with numerous subcentimeter nodular opacities, findings most likely related to pneumonia. Associated with this, there is added airspace consolidation in the right upper lobe which measures up to
2.9 cm in diameter. Most likely related to infection however mass not definitively excluded, recommend follow-up to resolution. There is also dense airspace consolidation in the lingula which measures up to 7.5 cm in diameter most likely related to
pneumonia. Within this consolidation, there is 1.9 cm probable pulmonary abscess as above.
3. Very small bilateral pleural effusions, right greater than left.
4. Mediastinal lymphadenopathy, new as compared with previous.
5. Coronary and aortic atherosclerosis.
12/15/23- 1. 4.8 x 4.8 x 3.5 cm irregular soft tissue mass within the RIGHT lower lobe abutting the diaphragm with spiculated margins compatible with patient's known primary lung cancer. No definitive evidence for metastatic disease within the
chest. Nonspecific 8.7 mm nodule within the lateral right upper lobe which on retrospective review did not appear to be FDG avid on the PET/CT from 12/04/2023.
2. Mild to moderate centrilobular emphysema within the upper lobes.
3. Densely calcified coronary arteries.
Echo: 09/09/22- 1. Normal left ventricular size and function, EF 55-60%
2. Thickened mitral leaflets with trace mitral regurgitation, mitral chordal calcification, and normal left atrium
3. Aortic sclerosis without stenosis or regurgitation
4. Normal right heart with normal pulmonary artery pressure
There are no prior studies available for comparison.
PFT's:
Reports and relevant images were personally reviewed.
Total time spent on this consultation 46 minutes which includes review of history, physical exam, medications, laboratory data, personal review of imaging, extensive review of outpatient records, discussion with care team and respiratory therapy.
Subjective Data
-
Date of Service:
Date of Service: September 08, 2024
Chief Complaint: Pulmonary Follow Up
Subjective:
Patient states he is feeling better today post bronchoscopy. He still has a mild cough but essentially nonproductive, no blood. Denies chest pain. Rash has improved. Overall spirits improved. at bedside
Objective Data
Data Reviewed
Vital Signs / I&O / Oxygen:
Vital Signs
Temp Pulse Resp BP Pulse Ox
97.4 F 102 19 116/69 94
09/08/24 07:36 09/08/24 06:08 09/08/24 06:08 09/08/24 06:08 09/08/24 06:08
Intake and Output
09/07/24 09/08/24 09/09/24
06:59 06:59 06:59
Intake Total 1460 / 1460
Output Total 150 / 150 200 / 200
Balance 1310 / 1310 -200 / -200
SaO2 94
Nasal Cannula flow liters per 3
minute
Physical Exam
General: Comfortable
HEENT: Normocephalic, Anicteric and Moist Mucous Membranes
Cardiovascular: S1-S2, Regular Rhythm, Murmur (n), Rub (n) and Peripheral Edema (n)
Respiratory: Wheeze (Mild), Crackles (n), Rhonchi (n), Non-Labored Respirations and Stridor (n)
GI: Soft, Non Distended and Non Tender
Neurology: Awake, Alert and No Motor Deficits (Able to sit up without assistance)
Skin: Warm, Dry and Rash (Mild erythematous macular rash involving left anterior chest into neck)
Labs/Micro/Reports
Lab Data
09/08/24 05:50
09/08/24 05:50
Microbiology
08/31/24 16:50 Blood/Venous Blood Culture - Final
No Growth - Final Report
08/31/24 16:02 Blood/Venous Blood Culture - Final
No Growth - Final Report
[2024-09-08] MEDS: SYMBICORT 160/4.5 MCG INHALER 2 PUFF INH ×2 (11:09→19:30)
[2024-09-08] MEDS: SPIRIVA RESPIMAT 2.5 MCG 2 PUFF INH (11:10)
--- NOTE | 2024-09-08 11:17 | W.PN.HOSP.TC ---
Today's Communication/Plan
-
Improving
cont Abx pending further pulm reccs
Assessment / Plan
Assessment / Plan
78yo M with PMHX of COPD, squamous cell CA of the lung s/p SBRT iin 12/04 and proton therapy in ec 2023 came with SOB found symptomatic anemia (s/p EGD on 08/30/24). Had some persistent patchy opacitied in June thought to be 2/2 radiation
pneumonitis and was started on Prednisone. Also concern for R shoulder herpes zoster started in June also. Managed for hypoxia 2/2 possible R sided pneumonia, cannot exclude metastatic CA. S/P bronch on
A/P:
#Multifocal pneumonia with acute hypoxic respiratory failure
#Lingular infiltrate with area of necrosis
#Mild mediastinal adenopathy
#small right upper lobe and left upper lobe nodules
Completed outpatient steroids
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
Follow up CT on 09/05/24: increased R pleural effusion, increase in size of masslike opacities in RLL and RUL, slight increase in size of small right upper lobe and left upper lobe nodules
Might benefit from bronch as per oncology
Elevated procal not informative in CA patient
Bronch on 09/07/24 - Cx and path pending
#Symptomatic anemia
#Acute esophagitis
s/p EGD by GI: non-bleeding duodenal and esophageal ulcers
GI to Repeat upper endoscopy in 8 weeks to check healing
Path neg for CMV or HSV infection
PPI BID
s/p 3 units PRBC
Serial Hgb - stable
#Hx of radiation pneumonitis
off steroids
cortisol appropriate - no concern for developing adrenal insufficiency
#Ambulatory deficiency
PT/OT - for rehab upon d/c
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
improving
valacyclovir empirically, if not improving - will need culturing
follow LFT
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
chronic
planned for dentist visit, but did not get chance yet due to hospitalizations
#Non-ischemic myocardial injury 2/2 hypoxia, anemia
plato-ed at 0.267
no chest pain
#COPD not in exacerbation
cont bronchodilators
#Paroxysmal nocturnal dyspnea
#Cataracts
#asymptomatic bradycardia
cont home meds
#Hypocalcemia with vit D deficiency
replete and follow
Vit D repletion
DVT ppx on hep
Full code
I have spent at least 38min reviewing chart, test results, communication with consultants and providing direct patient care
Anticipated Discharge: 24 - 48 hours
Subjective/Interval History
-
Date of Service: September 08, 2024
Objective Data
-
Labs:
Laboratory Results
09/08/24
05:50
WBC 12.7 H
Hgb 9.3 L
Hct 28.0 L
Plt Count 399
Sodium 138
Potassium 4.3
Chloride 112 H
Carbon Dioxide 21 L
BUN 23 H
Creatinine 0.8
Glucose 139 H
Calcium 7.8 L
Total Bilirubin 0.5
AST 26
ALT 23
Alkaline Phosphatase 94
Vital Signs:
Vital Signs
Temp Pulse Resp BP Pulse Ox
97.4 F 80 15 116/69 93
09/08/24 07:36 09/08/24 11:13 09/08/24 11:13 09/08/24 06:08 09/08/24 10:34
I&O
09/07/24 09/08/24 09/09/24
06:59 06:59 06:59
Intake Total 1460 / 1460
Output Total 150 / 150 200 / 200
Balance 1310 / 1310 -200 / -200
Review of Systems
-
History Source: Patient
All other systems: Reviewed and negative
Physical Exam
-
General: No Apparent Distress
HEENT: Normocephalic
Respiratory: Clear to Auscultation
GI: Soft, Nontender and Nondistended
Musculoskeletal: No Clubbing, No Cyanosis and No Edema
Neuro: Awake, Alert, Oriented and AO x 3
Psych: Calm
--- NOTE | 2024-09-08 16:51 | CM ---
Patient with Hx lung cancer and shingles with Dx PNA, anemia, s/p bronchoscopy. Room air. Airborne precautions. O2 3L. Receiving IV Abx. PT recommends skilled rehab. OT recommends HH + support.
SNF referrals reviewed; accepted by [facility].
Spoke with patient's Lynnette; provided update that patient has been accepted by [facility] and she says her will be happy about this. Informed her that d/c date is uncertain at this time as MD is waiting for bronchoscopy results.
Answered 's questions about SNF coverage under Medicare.
Phone call to [facility]; left message that patient may be ready for d/c in the next few days. Requested callback.
Plan [facility] when medically ready.
[2024-09-08] MEDS: TYLENOL 650 MG PO (20:12)
[2024-09-09] MEDS: STERILE WATER FOR INJECTION 10 ML IV ×3 (03:00→19:17)
[2024-09-09] MEDS: MAXIPIME 2000 MG IV ×3 (03:00→19:17)
[2024-09-09 03:28] LABS: Ionized Calcium 1.17 mMOL/L (1.15-1.33)
[2024-09-09 03:30] LABS: Hematocrit 24.3 % (39.0-52.0); Hemoglobin 8.1 g/dL (13.0-18.0); Mean Corp Hgb Conc. 33.3 g/dL (33.0-37.0); Mean Corpuscular Hgb 29.9 pg (27.0-31.0); Mean Corpuscular Volume 89.7 fL (80.0-94.0); Mean Platelet Volume 9.3 fL (7.4-10.4); Platelet Count 382 10^3/uL (130-400); Red Blood Cell Count 2.71 10^6/uL (4.70-6.10); White Blood Cell Count 11.5 10^3/uL (4.8-10.8)
[2024-09-09 03:49] LABS: ALT (SGPT) 21 U/L (0-50); AST (SGOT) 21 U/L (17-59); Albumin 2.1 g/dl (3.5-5.0); Alkaline Phosphatase 84 U/L (38-126); Blood Urea Nitrogen 30 mg/dl (9-20); Calcium 7.7 mg/dl (8.4-10.2); Carbon Dioxide 22 mmol/L (22-30); Chloride 115 mmol/L (98-107); Estimated Creatinine Clearance 55 ml/min; Glucose 142 mg/dl (70-99); Sodium 140 mmol/L (135-145); Total Bilirubin 0.2 mg/dl (0.2-1.3); Total Protein 4.6 g/dl (6.3-8.2); eGFR > 60.00
[2024-09-09 03:50] VITALS: BMI 21.2
[2024-09-09 05:18] LABS: Absolute Neutrophils -Man Diff 10.4 10^3/uL (1.4-6.5); Anisocytosis 2+; Band Neutrophils 0 % (0-3); Lymphocytes 8 % (20-51); Metamyelocytes 1 % (-); Normal RBC Morphology No; Platelets Checked Yes; Segmented Neutrophils 91 % (42-75); Total Cells Counted 100
[2024-09-09] MEDS: SYMBICORT 160/4.5 MCG INHALER INH (07:28)
[2024-09-09] MEDS: SPIRIVA RESPIMAT 2.5 MCG INH (07:28)
--- NOTE | 2024-09-09 07:31 | PTCARENOTE ---
Report given to [address] [place] [address] by night RN. Patient transferred to room 2130 on stretcher by night RN. All belongings with the patient.
[2024-09-09 08:00] VITALS: BP 140/91
[2024-09-09] MEDS: MYCOSTATIN ORAL SUSPENSION 5 ML PO ×4 (08:25→20:59)
[2024-09-09] MEDS: FLAGYL 500 MG PO ×2 (08:25→20:17)
[2024-09-09] MEDS: NEURONTIN 300 MG PO ×3 (08:25→20:59)
[2024-09-09] MEDS: PROTONIX 40 MG PO ×2 (08:25→20:16)
[2024-09-09] MEDS: VALTREX 1000 MG PO ×3 (08:26→20:59)
[2024-09-09] MEDS: HEPARIN 5000 UNITS SC ×2 (08:26→20:17)
[2024-09-09] MEDS: DESENEX/MITRAZOL/ZEASORB 1 APPLIC TOPICAL ×2 (08:31→20:17)
[2024-09-09] MEDS: MAGIC OR MIRACLE MOUTHWASH 5 ML PO ×4 (08:31→20:59)
--- NOTE | 2024-09-09 08:59 | W.PN.PUL3 ---
Today's Communication / Plan
-
Consider discontinuing antibiotics or transitioning to oral regimen to complete 14-day course. Has completed 10 days to date
Continue antiviral therapy
Remains off steroids
Consider discharge to rehabilitation as patient does feel better, stronger, appetite improved
Will require short-term chest x-ray in the next [address] chest with pulmonary follow-up
Reviewed the potential for repeat tissue biopsy, bronchoscopy if infiltrates, cavitary lesion progresses
Reviewed plan with primary service, oncology and patient/
Disposition efforts
Assessment
-
Patient is a 78-year-old male with previous history of COPD, squamous cell carcinoma of the lung, hyperlipidemia presenting to the ER with shortness of breath. He notes that he has had progressive decline of his shortness of breath in the past
few weeks. He also reports generalized weakness, dizziness.
Patient has h/o localized NSCLC, s/p RLL SBRT in November 2023 at [facility], and proton RT at [facility] in Mar 2024 for in-field recurrence. He's never had chemo. He had f/u with rad onc in late June, and CT scans done at OSH showed patchy opacities in right
mid and right lower lung, thought to be radiation pneumonitis. He was started on Prednisone 80mg/d, with a slow taper (10mg bid at the time of this admission). He was recently diagnosed with shingles, and has been taking NSAIDs. He presented to the
hospital with weakness, and reported weeks of melena. Hgb was 5. He was given 3u PRBCs. EGD showed UGI ulcerations. PPI was changed to BID. Prednisone was stopped.
CT chest was done on 08/31/24 to evaluate dyspnea, and showed bilateral airspace opacities and nodular opacities, concerning for pneumonia. There is new mediastinal DINAH. He was started on Cepefime and Flagyl..
CT 09/05/2024 shows progressive disease
Tachycardia and marginal blood pressure noted yesterday p.m., improved this morning
Patient feels improved post bronchoscopy 09/07
#1. Multifocal pulmonary opacities. Differential diagnosis includes multifocal pneumonia, lymphangitic spread of known lung cancer versus radiation pneumonitis. Multiple nodular opacities are more suspicious for infection/malignancy rather than
radiation related changes.
- Patient has been on prednisone taper as outpatient for suspected radiation pneumonitis, currently stopped due to shingles
- Patient has been on cefepime and Flagyll
- WBC count normal, no fever. Cultures have stayed negative
- CT chest 09/05 with progressive disease right side, stable cavitary process in the lingula
- Status post bronchoscopy 09/07. Significant secretions noted. Await cultures. Lavage specimens with minimum white cells
- Would consider completing 10-14-day course of antibiotics, transition to oral. Patient has received 10-day course to date. This will be deferred to primary service
#2. History of non-small cell lung cancer, RLL.
- S/p RLL SBRT in November 2023. Followed by proton radiation at [facility] in March 2024 for infield recurrence.
- CT scan 08/31, shows decreased right lower lobe opacity however multiple new nodular opacities bilaterally concerning for infection versus tumor. This is progressive per CT chest 09/05
- Await bronchoscopy results, cytology pending
#3. Lingular infiltrate with area of necrosis. Necrotizing pneumonia with pulmonary abscess versus necrotizing malignancy
- Continue cefepime and IV Flagyl, complete 10 to 14-day course
- Bronchoscopy results pending
- Patient will require short-term imaging with chest x-ray in about 3 to 4 weeks and eventual follow-up CT chest which can be done as outpatient
- Discussed possibility of progressive cancer
#4. h/o COPD/Emphysema
-Patient follows up with [facility]. Last pulmonary function test showed moderate obstruction with moderate diffusion impairment
-Continue Spiriva and Symbicort
-Continue albuterol as needed. Not actively wheezing, hold off on steroids. Continue antibiotic
#5. Tachycardia
- Patient with mild tachycardia, without symptoms. Marginal blood pressure yesterday noted with ambulating to the bathroom
- Will give 1 dose of stress dose steroids this morning. Patient on chronic prednisone preadmission
- EKG with sinus tachycardia, right bundle branch block
- Echocardiogram is pending. Will also check ultrasound of legs
- Patient is high risk for thromboembolic disease. Continue with DVT prophylaxis
- CT chest with contrast 08/31/2024, not a PE
- Echocardiogram unremarkable, Doppler negative for DVT
- Presently, tachycardia has improved. Patient tolerating physical therapy
There is a window for discharge to rehabilitation
Discussed plan at length with patient, , primary service and oncology
Short-term follow-up instructions left in chart
Disposition efforts
Conditions present [employer] [facility]
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
PNA
Bradycardia
Panlobular emphysema
Paroxysmal nocturnal dyspnea
COPD, follows with Tommy
Moderate obstruction on PFTs
Maintained on Breztri
Squamous cell lung cancer, RLL
L inguinal hernia
Recent COVID-19 (04/2024)
Hernia surgery right
Appendectomy
Mastoid surgery as baby
Cataracts bilateral
Robotic asst lap repair left inguinal hernia with mesh ([facility]) 06/2024
Diagnostic Data
Chest X-Ray: 08/29/24- Opacification of the right lung base in part secondary to the patient's known right lower lobe lung cancer, with suspicion for accompanying postobstructive atelectasis or pneumonia. New opacity in the mid to lower left lung,
which may represent malignancy or pneumonia. No pneumothorax or large pleural effusion. The cardiomediastinal silhouette is stable. Chronic degenerative changes of the spine.
12/21/23- Mass projects over the right lung base, also seen on prior CT dated 12/15/2023. No large pleural effusion on either side.
CT Scan: CHEST 08/31/24- 1. Interval decrease in size of previously seen mass at the base of the right lower lobe.
2. New bilateral interstitial and airspace opacities with numerous subcentimeter nodular opacities, findings most likely related to pneumonia. Associated with this, there is added airspace consolidation in the right upper lobe which measures up to
2.9 cm in diameter. Most likely related to infection however mass not definitively excluded, recommend follow-up to resolution. There is also dense airspace consolidation in the lingula which measures up to 7.5 cm in diameter most likely related to
pneumonia. Within this consolidation, there is 1.9 cm probable pulmonary abscess as above.
3. Very small bilateral pleural effusions, right greater than left.
4. Mediastinal lymphadenopathy, new as compared with previous.
5. Coronary and aortic atherosclerosis.
12/15/23- 1. 4.8 x 4.8 x 3.5 cm irregular soft tissue mass within the RIGHT lower lobe abutting the diaphragm with spiculated margins compatible with patient's known primary lung cancer. No definitive evidence for metastatic disease within the
chest. Nonspecific 8.7 mm nodule within the lateral right upper lobe which on retrospective review did not appear to be FDG avid on the PET/CT from 12/04/2023.
2. Mild to moderate centrilobular emphysema within the upper lobes.
3. Densely calcified coronary arteries.
Echo: 09/09/22- 1. Normal left ventricular size and function, EF 55-60%
2. Thickened mitral leaflets with trace mitral regurgitation, mitral chordal calcification, and normal left atrium
3. Aortic sclerosis without stenosis or regurgitation
4. Normal right heart with normal pulmonary artery pressure
There are no prior studies available for comparison.
PFT's:
Reports and relevant images were personally reviewed.
Total time spent on this consultation 46 minutes which includes review of history, physical exam, medications, laboratory data, personal review of imaging, extensive review of outpatient records, discussion with care team and respiratory therapy.
Subjective Data
-
Date of Service:
Date of Service: September 09, 2024
Chief Complaint: Pulmonary Follow Up
Subjective:
Patient is feeling improved. Denies significant chest pain. Has mild rash, burning sensation. Has productive cough, no hemoptysis. Ambulating with walker.
Objective Data
Data Reviewed
Vital Signs / I&O / Oxygen:
Vital Signs
Temp Pulse Resp BP Pulse Ox
97.7 F 108 17 129/59 95
09/09/24 03:50 09/08/24 20:07 09/08/24 20:07 09/08/24 20:07 09/08/24 20:51
Intake and Output
09/08/24 09/09/24 09/10/24
06:59 06:59 06:59
Intake Total 600 / 600
Output Total 200 / 200 400 / 400
Balance -200 / -200 200 / 200
SaO2 95
Nasal Cannula flow liters per 2
minute
Physical Exam
General: Comfortable
HEENT: Normocephalic, Anicteric and Moist Mucous Membranes
Cardiovascular: S1-S2, Regular Rhythm, Murmur (n), Rub (n) and Peripheral Edema (n)
Respiratory: Wheeze (Mild), Crackles (n), Rhonchi (n), Non-Labored Respirations and Stridor (n)
GI: Soft, Non Distended and Non Tender
Neurology: Awake, Alert and No Motor Deficits (Able to sit up without assistance)
Skin: Warm, Dry and Rash (Mild erythematous macular rash involving left anterior chest into neck)
Labs/Micro/Reports
Lab Data
09/09/24 03:15
09/09/24 03:15
Microbiology
09/08/24 10:33 Bronch Banks Gram Stain - Preliminary
09/08/24 10:33 Bronch Right Lower Lobe Gram Stain - Preliminary
09/08/24 10:31 Bronch Right Upper Lobe Gram Stain - Preliminary
09/08/24 10:33 Res Misc Gram Stain - Preliminary
09/08/24 10:35 Bronch Right Upper Lobe Fungal Culture - Preliminary
Culture in progress.
Positive cultures are reported as soon as detected.
Final report to follow in four to five weeks.
09/08/24 10:31 Bronchoalveolar Lavage Fungal Culture - Preliminary
Culture in progress.
Positive cultures are reported as soon as detected.
Final report to follow in four to five weeks.
09/08/24 10:32 Bronch Banks Fungal Culture - Preliminary
Culture in progress.
Positive cultures are reported as soon as detected.
Final report to follow in four to five weeks.
09/08/24 10:32 Bronch Right Lower Lobe Fungal Culture - Preliminary
Culture in progress.
Positive cultures are reported as soon as detected.
Final report to follow in four to five weeks.
[2024-09-09 10:50] LABS: Hematocrit 27.5 % (39.0-52.0); Hemoglobin 9.1 g/dL (13.0-18.0)
--- NOTE | 2024-09-09 11:05 | W.PN.HOSP.TC ---
Today's Communication/Plan
-
medcically stable for d/c, pedning acceptance to [facility] - as per CM room available on 09/10/24 (needs private room 2/2 shingles)
Assessment / Plan
Assessment / Plan
78yo M with PMHX of COPD, squamous cell CA of the lung s/p SBRT iin 12/04 and proton therapy in ec 2023 came with SOB found symptomatic anemia (s/p EGD on 08/30/24). Had some persistent patchy opacitied in June thought to be 2/2 radiation
pneumonitis and was started on Prednisone. Also concern for R shoulder herpes zoster started in June also. Managed for hypoxia 2/2 possible R sided pneumonia, cannot exclude metastatic CA. S/P bronch on with pendign Cx. As patient
completed 10 days of Abx - agreed with steward/stewardess deck to stop it and patient to continue close follow up with steward/stewardess deck as outpatient. If no additional reasult - might need repeated bronch with biopsy, not just BAL. Complete 2 weeks of
valacyclovir. Medically stable for d/c to [facility] as recommended by PT/OT. Recommended H&H in 2-3 days in rehab
A/P:
#Multifocal pneumonia with acute hypoxic respiratory failure
#Lingular infiltrate with area of necrosis
#Mild mediastinal adenopathy
#small right upper lobe and left upper lobe nodules
Completed outpatient steroids
empiric Abx- cefepime/flagyl as per steward/stewardess deck
Follow up CT on 09/05/24: increased R pleural effusion, increase in size of masslike opacities in RLL and RUL, slight increase in size of small right upper lobe and left upper lobe nodules
Might benefit from bronch as per oncology
Elevated procal not informative in CA patient
Bronch on 09/07/24 - Cx and path pending
#Symptomatic anemia
#Acute esophagitis
s/p EGD by GI: non-bleeding duodenal and esophageal ulcers
GI to Repeat upper endoscopy in 8 weeks to check healing
Path neg for CMV or HSV infection
PPI BID
s/p 3 units PRBC
Serial Hgb - stable (one episode of false low Hgb on AM 09/09/24)
#Hx of radiation pneumonitis
off steroids
cortisol appropriate - no concern for developing adrenal insufficiency
#Ambulatory deficiency
PT/OT - for rehab upon d/c
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
improving
valacyclovir empirically, if not improving - will need culturing
follow LFT
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
chronic
planned for dentist visit, but did not get chance yet due to hospitalizations
#Non-ischemic myocardial injury 2/2 hypoxia, anemia
plato-ed at 0.267
no chest pain
#COPD not in exacerbation
cont bronchodilators
#Paroxysmal nocturnal dyspnea
#Cataracts
#asymptomatic bradycardia
cont home meds
#Hypocalcemia with vit D deficiency
replete and follow
Vit D repletion
DVT ppx on hep
Full code
I have spent at least 38min reviewing chart, test results, communication with consultants and providing direct patient care
Anticipated Discharge: Within 24 hours
Subjective/Interval History
-
Date of Service: September 09, 2024
Objective Data
-
Labs:
Laboratory Results
09/09/24 09/09/24
03:15 10:36
WBC 11.5 H
Hgb 8.1 L 9.1 L
Hct 24.3 L 27.5 L
Plt Count 382
Sodium 140
Potassium 4.0
Chloride 115 H
Carbon Dioxide 22
BUN 30 H
Creatinine 0.9
Glucose 142 H
Calcium 7.7 L
Total Bilirubin 0.2
AST 21
ALT 21
Alkaline Phosphatase 84
Vital Signs:
Vital Signs
Temp Pulse Resp BP Pulse Ox
98.1 F 98 18 140/91 95
09/09/24 08:00 09/09/24 08:00 09/09/24 08:00 09/09/24 08:00 09/09/24 08:00
I&O
09/08/24 09/09/24 09/10/24
06:59 06:59 06:59
Intake Total 600 / 600
Output Total 200 / 200 400 / 400
Balance -200 / -200 200 / 200
Review of Systems
-
History Source: Patient
All other systems: Reviewed and negative
Physical Exam
-
General: No Apparent Distress
HEENT: Normocephalic
Respiratory: Negative Wheezes or Crackles
Cardiac: Regular Rhythm
GI: Soft, Nontender and Nondistended
Skin: Warm
Neuro: Awake, Alert, Oriented and AO x 3
Psych: Calm
[2024-09-09 11:44] VITALS: BP 116/66; PULSE 116; O2SAT 93
[2024-09-09 12:43] VITALS: BP 113/57
--- NOTE | 2024-09-09 14:05 | CM ---
Addendum entered by Phoenix Westfall 09/09/24 16:12:
Ambulance transport is scheduled for tomorrow Thursday09/10/24 with 5:00 p.m. product picker time.
[facility] director call center sales is aware and she confirmed again that pt is accepted for admission tomorrow.
Original Note:
CM following re: discharge planning.
Reviewed pt's chart, met with pt and pt's spouse at bedside.
According to MD pt is medically stable to be discharged today. Both pt and his spouse are aware, IMM reviewed, placed on chart, pt has a copy.
KIMBERLY spoke to [facility] aquaculture program director and she stated that pt needs a private room for isolation precautions due to Shingles and they will have a bed available tomorrow Thursday09/10/24 and requested discharge time after
3:00 p.m.
Both pt and his spouse are aware, expressed their agreement.
[facility] to arrange ambulance transport BLS for tomorrow 09/10/24 with requested discharge time after 3:00 p.m. PMNC completed and left with [facility].
[facility] nursing report: [phone]
Discharge instructions fax: [phone]
D/C plan: [facility] [place] tomorrow 09/10/24 with requested product picker time after 3:00 p.m.
CM will follow to assist pt with discharge to [facility]
[2024-09-09 15:00] VITALS: BP 107/57
[2024-09-09] MEDS: TYLENOL 650 MG PO ×2 (16:01→20:56)
[2024-09-09] MEDS: SYMBICORT 160/4.5 MCG INHALER 2 PUFF INH (18:25)
[2024-09-09 19:10] VITALS: BP 124/66
[2024-09-09 22:57] VITALS: BP 129/68
[2024-09-10] MEDS: TYLENOL 650 MG PO ×2 (01:25→07:20)
[2024-09-10 03:51] VITALS: BP 117/70; BMI 21.2
--- NOTE | 2024-09-10 07:05 | W.PN.UPDATE ---
Update Note
Progress Note Update
narrow complex tachycardia on tele, short run of PSVT. will check electrolytes
[2024-09-10 07:40] VITALS: BP 133/71
[2024-09-10] MEDS: SYMBICORT 160/4.5 MCG INHALER 2 PUFF INH (07:49)
[2024-09-10] MEDS: SPIRIVA RESPIMAT 2.5 MCG 2 PUFF INH (07:49)
[2024-09-10] MEDS: HEPARIN 5000 UNITS SC (07:58)
[2024-09-10] MEDS: MYCOSTATIN ORAL SUSPENSION 5 ML PO ×2 (07:58→12:19)
[2024-09-10] MEDS: LEVAQUIN 750 MG PO (07:58)
[2024-09-10] MEDS: MAGIC OR MIRACLE MOUTHWASH 5 ML PO ×2 (07:58→12:19)
[2024-09-10] MEDS: NEURONTIN 300 MG PO (07:58)
[2024-09-10] MEDS: FLAGYL 500 MG PO (07:58)
[2024-09-10] MEDS: VALTREX 1000 MG PO (07:58)
[2024-09-10] MEDS: PROTONIX 40 MG PO (07:58)
[2024-09-10 08:17] LABS: Hemoglobin 9.2 g/dL (13.0-18.0)
[2024-09-10 08:40] LABS: Blood Urea Nitrogen 22 mg/dl (9-20); Calcium 8.1 mg/dl (8.4-10.2); Carbon Dioxide 23 mmol/L (22-30); Chloride 113 mmol/L (98-107); Estimated Creatinine Clearance 69 ml/min; Glucose 91 mg/dl (70-99); Magnesium 2.1 mg/dl (1.6-2.3); Sodium 141 mmol/L (135-145); eGFR > 60.00
[2024-09-10] MEDS: DESENEX/MITRAZOL/ZEASORB 1 APPLIC TOPICAL (09:11)
[2024-09-10] MEDS: ROXICODONE 5 MG PO (11:02)
[2024-09-10 11:25] VITALS: BP 111/68
--- NOTE | 2024-09-10 12:06 | W.PN.HOSP.TC ---
Today's Communication/Plan
-
DC
Assessment / Plan
Assessment / Plan
78yo M with PMHX of COPD, squamous cell CA of the lung s/p SBRT iin 12/04 and proton therapy in ec 2023 came with SOB found symptomatic anemia (s/p EGD on 08/30/24). Had some persistent patchy opacitied in June thought to be 2/2 radiation
pneumonitis and was started on Prednisone. Also concern for R shoulder herpes zoster started in June also. Managed for hypoxia 2/2 possible R sided pneumonia, cannot exclude metastatic CA. S/P bronch on with pendign Cx. As patient
completed 10 days of Abx - agreed with surgical processor to stop it and patient to continue close follow up with surgical processor as outpatient. If no additional result - might need repeated bronch with biopsy, not just BAL. Complete 2 weeks of
valacyclovir. Medically stable for d/c to STR as recommended by PT/OT.
A/P:
#Multifocal pneumonia with acute hypoxic respiratory failure
#Lingular infiltrate with area of necrosis
#Mild mediastinal adenopathy
#small right upper lobe and left upper lobe nodules
Completed outpatient steroids
empiric Abx- cefepime/flagyl as per surgical processor
Follow up CT on 09/05/24: increased R pleural effusion, increase in size of masslike opacities in RLL and RUL, slight increase in size of small right upper lobe and left upper lobe nodules
Might benefit from bronch as per oncology
Elevated procal not informative in CA patient
Bronch on 09/07/24 - Cx and path pending, NTD
Levaquin/Flagyl to complete total 2 weeks of infection
#L ankle swelling with minor redness
2/2 concussion of soft tissue vs arthritis
No overt signs of infection
rapidly developed in terms of hours and resolving same fast as per patient
patient and family will prefer monitoring it in the STR. If worsening - will get podiatry vs ED
#Symptomatic anemia
#Acute esophagitis
s/p EGD by GI: non-bleeding duodenal and esophageal ulcers
GI to Repeat upper endoscopy in 8 weeks to check healing
Path neg for CMV or HSV infection
PPI BID
s/p 3 units PRBC
Serial Hgb - stable (one episode of false low Hgb on AM 09/09/24)
#Hx of radiation pneumonitis
off steroids
cortisol appropriate - no concern for developing adrenal insufficiency
#Ambulatory deficiency
PT/OT - for rehab upon d/c
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
improving
valacyclovir empirically, if not improving - will need culturing
follow LFT
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
chronic
planned for dentist visit, but did not get chance yet due to hospitalizations
#Non-ischemic myocardial injury 2/2 hypoxia, anemia
plato-ed at 0.267
no chest pain
#COPD not in exacerbation
cont bronchodilators
#Paroxysmal nocturnal dyspnea
#Cataracts
#asymptomatic bradycardia
cont home meds
#Hypocalcemia with vit D deficiency
replete and follow
Vit D repletion
DVT ppx on hep
Full code
I have spent at least 38min reviewing chart, test results, communication with consultants and providing direct patient care
Anticipated Discharge: Today
Subjective/Interval History
-
Date of Service: September 10, 2024
Objective Data
-
Labs:
Laboratory Results
09/10/24
07:52
Hgb 9.2 L
Hct 28.0 L
Sodium 141
Potassium 4.0
Chloride 113 H
Carbon Dioxide 23
BUN 22 H
Creatinine 0.7
Glucose 91
Calcium 8.1 L
Vital Signs:
Vital Signs
Temp Pulse Resp BP Pulse Ox
97.6 F 108 18 111/68 96
09/10/24 11:25 09/10/24 11:25 09/10/24 11:25 09/10/24 11:25 09/10/24 11:25
I&O
09/09/24 09/10/24 09/11/24
06:59 06:59 06:59
Intake Total 600 / 600 1440 / 1440
Output Total 400 / 400
Balance 200 / 200 1440 / 1440
Review of Systems
-
History Source: Patient
All other systems: Reviewed and negative
Physical Exam
-
General: No Apparent Distress
HEENT: Normocephalic
Respiratory: Clear to Auscultation
GI: Soft, Nontender and Nondistended
Musculoskeletal: No Clubbing, No Cyanosis and Other (L ankle swelling with minor redness)
Neuro: Awake, Alert, Oriented and AO x 3
Psych: Calm
--- NOTE | 2024-09-10 12:10 | W.DCSUMMARY ---
Discharge Summary
Discharge Data
Date of Admission: 08/29/24
Date of Discharge: 09/10/24
-
Pending Results: Yes
Additional Pending Results:
BAL results
Hospital Course
78yo M with PMHX of COPD, squamous cell CA of the lung s/p SBRT iin 12/04 and proton therapy in ec 2023 came with SOB found symptomatic anemia (s/p EGD on 08/30/24). Had some persistent patchy opacitied in June thought to be 2/2 radiation
pneumonitis and was started on Prednisone. Also concern for R shoulder herpes zoster started in June also. Managed for hypoxia 2/2 possible R sided pneumonia, cannot exclude metastatic CA. S/P bronch on with pendign Cx. As patient
completed 10 days of Abx - agreed with team coordinator to stop it and patient to continue close follow up with team coordinator and established oncologist as outpatient. If no additional result - might need repeated bronch with biopsy, not just BAL.
Complete 2 weeks of valacyclovir. Medically stable for d/c to STR as recommended by PT/OT.
I have spent at least 38min reviewing chart, test results, communication with consultants and providing direct patient care
Patient was managed for:
#Multifocal pneumonia with acute hypoxic respiratory failure
#Lingular infiltrate with area of necrosis
#Mild mediastinal adenopathy
#small right upper lobe and left upper lobe nodules
#L ankle swelling with minor redness
#Symptomatic anemia
#Acute esophagitis
#Hx of radiation pneumonitis
#Ambulatory deficiency
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
#Non-ischemic myocardial injury 2/2 hypoxia, anemia
#COPD not in exacerbation
#Paroxysmal nocturnal dyspnea
#Cataracts
#asymptomatic bradycardia
#Hypocalcemia with vit D deficiency
Discharge Plan
-
Discharge Diagnosis/Procedures: pneumonia
Diet: Regular
Referrals:
Daksha Sanders MD [Active, Pulmonary Medicine]
Referral Note: 10/13 at 1215 with Tommy
Yaima Sumner MD [Family Provider]
Ivan Ortez MD [Active] - 10/07/24 3:00 pm
Referral Note: Please call to reschedule if you can not keep this appointment. If your insurance requires a referral please contact your primary care physician prior to your appointment.
Additional Discharge Medication Instructions: Obtain CXR in 4 weeks post dc
Prescriptions:
New
metronidazole 500 mg Tablet
500 mg PO Q12 Qty: 10 0RF
valacyclovir 500 mg Tablet
1,000 mg PO TID Qty: 24 0RF
ergocalciferol (vitamin D2) [Vitamin D2] 1,250 mcg (50,000 unit) Capsule
50,000 unit PO Q7D Qty: 5 0RF
levofloxacin 750 mg Tablet
750 mg PO DAILY Qty: 4 0RF
oxycodone 5 mg Tablet
5 mg PO Q4HPRN PRN (Reason: moderate pain) Qty: 6 0RF
oxycodone 10 mg Tablet
10 mg PO Q6HPRN PRN (Reason: severe pain) Qty: 6 0RF
Continued
latanoprost 0.005 % Drops
1 drp BOTH EYES HS
Breztri Aerosphere 160-9-4.8 mcg/actuation Hfa Aerosol Inhaler
2 inh INHALATION R BID
atorvastatin 20 mg Tablet
20 mg PO HS
ibuprofen 200 mg Tablet
400 mg PO Q6HPRN PRN (Reason: mild Pain)
albuterol sulfate 90 mcg/actuation Hfa Aerosol Inhaler
2 puff INHALATION R Q6HPRN PRN (Reason: sob)
Changed
gabapentin 300 mg Capsule
300 mg PO TID Qty: 0 0RF
Discontinued
prednisone 10 mg Tablet
10 mg PO BID
Rx Instructions:
for 5 days srtaing 08/29/24
Discharge Orders:
Discharge Patient (As Directed); Ordered 09/10/24
Ordered By: Lewis Hahn
Discharge Date and Time
Print Language: TURKMEN
[2024-09-10] MEDS: TORADOL 15 MG IV (12:19)
--- NOTE | 2024-09-10 12:20 | W.PN.UPDATE ---
Update Note
Progress Note Update
Single dose of Toradol to reduce pain and inflammation in R ankle. No NSAIDs upon d/c, cont BID PPI
--- NOTE | 2024-09-10 12:50 | W.PN.PUL3 ---
Today's Communication / Plan
-
Continue antibiotics and would complete a 10-14-day course
Continue antiviral therapy
Remains off steroids
Patient being prepared for discharge to the community at [facility], [place]
Will require short-term chest x-ray in the next [address] chest with pulmonary follow-up
Reviewed the potential for repeat tissue biopsy, bronchoscopy if infiltrates, cavitary lesion progresses
Bronchoscopy cytology was negative for malignancy although did show atypical squamous cells in the RUL + RLL BAL
No additional recommendations at this time. Pulmonary service will now sign off. Please reconsult if there are any additional questions/concerns, or if patient's respiratory status deteriorates. Outpatient pulmonary office follow-up will be
arranged with Dr. Sanders
Assessment
-
Patient is a 78-year-old male with previous history of COPD, squamous cell carcinoma of the lung, hyperlipidemia presenting to the ER with shortness of breath. He notes that he has had progressive decline of his shortness of breath in the past
few weeks. He also reports generalized weakness, dizziness.
Patient has h/o localized NSCLC, s/p RLL SBRT in November 2023 at [facility], and proton RT at [facility] in Mar 2024 for in-field recurrence. He's never had chemo. He had f/u with rad onc in late June, and CT scans done at OSH showed patchy opacities in right
mid and right lower lung, thought to be radiation pneumonitis. He was started on Prednisone 80mg/d, with a slow taper (10mg bid at the time of this admission). He was recently diagnosed with shingles, and has been taking NSAIDs. He presented to the
hospital with weakness, and reported weeks of melena. Hgb was 5. He was given 3u PRBCs. EGD showed UGI ulcerations. PPI was changed to BID. Prednisone was stopped.
CT chest was done on 08/31/24 to evaluate dyspnea, and showed bilateral airspace opacities and nodular opacities, concerning for pneumonia. There is new mediastinal DINAH. He was started on Cepefime and Flagyl..
CT 09/05/2024 shows progressive disease
Tachycardia and marginal blood pressure noted yesterday p.m., improved this morning
Patient feels improved post bronchoscopy 09/07
#1. Multifocal pulmonary opacities. Differential diagnosis includes multifocal pneumonia, lymphangitic spread of known lung cancer versus radiation pneumonitis. Multiple nodular opacities are more suspicious for infection/malignancy rather than
radiation related changes.
- Patient has been on prednisone taper as outpatient for suspected radiation pneumonitis, currently stopped due to shingles
- Patient has been on cefepime and Flagyl
- Cultures have remained negative
- CT chest 09/05 with progressive disease right side, stable cavitary process in the lingula
- Status post bronchoscopy 09/07. Significant secretions noted. Follow-up cultures. Lavage specimens with minimum white cells
- Patient currently being transition to Levaquin, and also remains on Flagyl. Consider completing 10-14-day course of antibiotics - this will be deferred to primary service
#2. History of non-small cell lung cancer, RLL.
- S/p RLL SBRT in November 2023. Followed by proton radiation at [facility] in March 2024 for infield recurrence.
- CT scan 08/31, shows decreased right lower lobe opacity however multiple new nodular opacities bilaterally concerning for infection versus tumor. This is progressive per CT chest 09/05
- Await bronchoscopy results, cytology is negative for malignancy and there is acute inflammation in the lingula BAL, although atypical squamous cells are present in the right lower lobe BAL as well as right upper lobe BAL
#3. Lingular infiltrate with area of necrosis. Necrotizing pneumonia with pulmonary abscess versus necrotizing malignancy
- Continue Abx, now on levaquin and flagyl - would complete total 10 to 14-day course
- Follow-up cultures from bronchoscopy (NGTD)
- Patient will require short-term imaging with chest x-ray in about 3 to 4 weeks and eventual follow-up CT chest which can be done as outpatient
- Discussed possibility of progressive cancer
#4. h/o COPD/Emphysema
-Patient follows with [facility]. Last pulmonary function test showed moderate obstruction with moderate diffusion impairment
-Continue Spiriva and Symbicort
-Continue albuterol as needed. Not actively wheezing, hold off on steroids. Continue antibiotics as above
#5. Tachycardia
- Patient with mild tachycardia, without symptoms.
- Was given hydrocortisone 100 100 mg on 09/07, and then started on 50 mg IV q6hr - patient on chronic prednisone preadmission
- EKG with sinus tachycardia, right bundle branch block
- Echocardiogram showed no regional WMA, EF 55 to 60% with normal RV size and function. Lower extremity duplex ultrasound was negative for DVT bilaterally
- Patient is high risk for thromboembolic disease. Continue with DVT prophylaxis
- CT chest with contrast 08/31/2024, not a PE
- Presently, tachycardia has improved. Patient tolerating physical therapy
Patient being prepared for discharge to the Community at [facility], [place]
Dr. Sanders previously discussed plan at length with patient, , primary service and oncology
Short-term follow-up instructions left in chart
Disposition efforts
No additional recommendations at this time. Pulmonary service will now sign off. Thank you for allowing us to be involved in the care of this patient. Please reconsult if there are any additional questions/concerns, or if patient's respiratory
status deteriorates.
Conditions present [employer]
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
PNA
Bradycardia
Panlobular emphysema
Paroxysmal nocturnal dyspnea
COPD, follows with [facility]
Moderate obstruction on PFTs
Maintained on Breztri
Squamous cell lung cancer, RLL
L inguinal hernia
Recent COVID-19 (04/2024)
Hernia surgery right
Appendectomy
Mastoid surgery as baby
Cataracts bilateral
Robotic asst lap repair left inguinal hernia with mesh ([facility]) 06/2024
Diagnostic Data
Chest X-Ray: 08/29/24- Opacification of the right lung base in part secondary to the patient's known right lower lobe lung cancer, with suspicion for accompanying postobstructive atelectasis or pneumonia. New opacity in the mid to lower left lung,
which may represent malignancy or pneumonia. No pneumothorax or large pleural effusion. The cardiomediastinal silhouette is stable. Chronic degenerative changes of the spine.
12/21/23- Mass projects over the right lung base, also seen on prior CT dated 12/15/2023. No large pleural effusion on either side.
CT Scan: CHEST 08/31/24- 1. Interval decrease in size of previously seen mass at the base of the right lower lobe.
2. New bilateral interstitial and airspace opacities with numerous subcentimeter nodular opacities, findings most likely related to pneumonia. Associated with this, there is added airspace consolidation in the right upper lobe which measures up to
2.9 cm in diameter. Most likely related to infection however mass not definitively excluded, recommend follow-up to resolution. There is also dense airspace consolidation in the lingula which measures up to 7.5 cm in diameter most likely related to
pneumonia. Within this consolidation, there is 1.9 cm probable pulmonary abscess as above.
3. Very small bilateral pleural effusions, right greater than left.
4. Mediastinal lymphadenopathy, new as compared with previous.
5. Coronary and aortic atherosclerosis.
12/15/23- 1. 4.8 x 4.8 x 3.5 cm irregular soft tissue mass within the RIGHT lower lobe abutting the diaphragm with spiculated margins compatible with patient's known primary lung cancer. No definitive evidence for metastatic disease within the
chest. Nonspecific 8.7 mm nodule within the lateral right upper lobe which on retrospective review did not appear to be FDG avid on the PET/CT from 12/04/2023.
2. Mild to moderate centrilobular emphysema within the upper lobes.
3. Densely calcified coronary arteries.
Echo: 09/09/22- 1. Normal left ventricular size and function, EF 55-60%
2. Thickened mitral leaflets with trace mitral regurgitation, mitral chordal calcification, and normal left atrium
3. Aortic sclerosis without stenosis or regurgitation
4. Normal right heart with normal pulmonary artery pressure
There are no prior studies available for comparison.
PFT's:
Reports and relevant images were personally reviewed.
Total time spent today was 37 minutes for this encounter. Time includes reviewing laboratory test/imaging results, reviewing pertinent medical records, obtaining and reviewing medical history, performing an appropriate exam, ordering medications,
tests and procedures. Time also includes documentation of this encounter, coordinating patient care and communicating with other healthcare professionals. Total time does not include separately billed tests performed on this date of service.
Subjective Data
-
Date of Service:
Date of Service: September 10, 2024
Chief Complaint: Pulmonary Follow Up
Subjective:
Patient seen and evaluated today at bedside (late note entry). Still has a productive cough although is improving. Currently denies chest pain, BEATTY, nausea, fevers or chills. Being prepared for discharge home today.
Review of Systems
General: Other (Negative unless mentioned above)
Objective Data
Data Reviewed
Vital Signs / I&O / Oxygen:
Vital Signs
Temp Pulse Resp BP Pulse Ox
97.6 F 90 16 133/71 92
09/10/24 07:40 09/10/24 07:52 09/10/24 07:52 09/10/24 07:40 09/10/24 07:40
Intake and Output
09/09/24 09/10/24 09/11/24
06:59 06:59 06:59
Intake Total 600 / 600 1440 / 1440
Output Total 400 / 400
Balance 200 / 200 1440 / 1440
SaO2 92
Nasal Cannula flow liters per 2.5
minute
Physical Exam
General: Respiratory Distress (n) and Comfortable
HEENT: Normocephalic, Anicteric and Moist Mucous Membranes
Cardiovascular: S1-S2, Murmur (n), Rub (n) and Peripheral Edema (n)
Respiratory: Wheeze (Mild), Crackles (n), Rhonchi (n), Non-Labored Respirations and Stridor (n)
GI: Soft, Non Distended and Non Tender
Neurology: Awake, Alert and Tremors (n)
Skin: Warm, Dry and Rash (Mild erythematous macular rash involving left anterior chest into neck)
Labs/Micro/Reports
Lab Data
09/10/24 07:52
09/10/24 07:52
Microbiology
09/08/24 10:33 Res Misc Respiratory Culture - Final
Usual Respiratory Yvonne
09/08/24 10:33 Res Misc Gram Stain - Final
09/08/24 10:32 Bronch Right Lower Lobe Acid Fast Bacilli Smear - Preliminary
09/08/24 10:32 Bronch Right Lower Lobe Acid Fast Bacilli Culture - Preliminary
09/08/24 10:32 Bronch Right Upper Lobe Acid Fast Bacilli Smear - Preliminary
09/08/24 10:32 Bronch Right Upper Lobe Acid Fast Bacilli Culture - Preliminary
09/08/24 10:32 Bronch [place] Acid Fast Bacilli Smear - Preliminary
09/08/24 10:32 Bronch [place] Acid Fast Bacilli Culture - Preliminary
09/08/24 10:37 Bronchoalveolar Lavage Acid Fast Bacilli Smear - Preliminary
09/08/24 10:37 Bronchoalveolar Lavage Acid Fast Bacilli Culture - Preliminary
09/08/24 10:33 Bronch Right Lower Lobe Respiratory Culture - Preliminary
09/08/24 10:33 Bronch Right Lower Lobe Gram Stain - Preliminary
09/08/24 10:33 Bronch [place] Respiratory Culture - Preliminary
NO GROWTH
09/08/24 10:33 Bronch [place] Gram Stain - Preliminary
09/08/24 10:31 Bronch Right Upper Lobe Respiratory Culture - Preliminary
09/08/24 10:31 Bronch Right Upper Lobe Gram Stain - Preliminary
09/08/24 10:35 Bronch Right Upper Lobe Fungal Culture - Preliminary
Culture in progress.
Positive cultures are reported as soon as detected.
Final report to follow in four to five weeks.
09/08/24 10:31 Bronchoalveolar Lavage Fungal Culture - Preliminary
Culture in progress.
Positive cultures are reported as soon as detected.
Final report to follow in four to five weeks.
09/08/24 10:32 Bronch [place] Fungal Culture - Preliminary
Culture in progress.
Positive cultures are reported as soon as detected.
Final report to follow in four to five weeks.
09/08/24 10:32 Bronch Right Lower Lobe Fungal Culture - Preliminary
Culture in progress.
Positive cultures are reported as soon as detected.
Final report to follow in four to five weeks.
[2024-09-10] MEDS: SODIUM PHOSPHATE 255 MEQ IV (13:36)
[2024-09-10 15:14] VITALS: O2SAT 95
[2024-09-10 15:15] VITALS: BP 122/71
== END 2024-09-10 15:32 | DRG 871 ==
LOC: 2 NORTH 14:30
PROVIDERS: Internal Medicine; Internal Medicine Critical Care Medicine; Internal Medicine Gastroenterology; Nurse Practitioner Family; Nurse Practitioner Gerontology; Physician Assistant Medical; ADMITTING PHYSICIAN Hospitalist; ATTENDING PHYSICIAN Internal Medicine; CONSULT PHYSICIAN Internal Medicine; CONSULT PHYSICIAN Internal Medicine Gastroenterology; EMERGENCY PHYSICIAN Emergency Medicine; FAMILY PHYSICIAN Family Medicine; OTHER PHYSICIAN Internal Medicine Hematology & Oncology
PROC: 30233N1 Transfusion of Nonautologous Red Blood Cells into Peripheral Vein, Percutaneous Approach (ICD-10-PCS; 2024-08-29)
PROC: 0DB58ZX Excision of Esophagus, Via Natural or Artificial Opening Endoscopic, Diagnostic (ICD-10-PCS; 2024-08-30)
PROC: 0DB68ZX Excision of Stomach, Via Natural or Artificial Opening Endoscopic, Diagnostic (ICD-10-PCS; 2024-08-30)
PROC: 0B9C8ZX Drainage of Right Upper Lung Lobe, Via Natural or Artificial Opening Endoscopic, Diagnostic (ICD-10-PCS; 2024-09-07)
PROC: 0B9H8ZX Drainage of Lung Lingula, Via Natural or Artificial Opening Endoscopic, Diagnostic (ICD-10-PCS; 2024-09-07)
PROC: 0B9F8ZX Drainage of Right Lower Lung Lobe, Via Natural or Artificial Opening Endoscopic, Diagnostic (ICD-10-PCS; 2024-09-07)
PROC: 0BDH8ZX Extraction of Lung Lingula, Via Natural or Artificial Opening Endoscopic, Diagnostic (ICD-10-PCS; 2024-09-07)
DX: A41.9 Sepsis, unspecified organism (principal); J18.9 Pneumonia, unspecified organism; J85.0 Gangrene and necrosis of lung; J96.01 Acute respiratory failure with hypoxia; K22.11 Ulcer of esophagus with bleeding; K26.4 Chronic or unspecified duodenal ulcer with hemorrhage; J44.0 Chronic obstructive pulmonary disease with (acute) lower respiratory infection; D84.9 Immunodeficiency, unspecified; I5A Non-ischemic myocardial injury (non-traumatic); E87.1 Hypo-osmolality and hyponatremia; C34.11 Malignant neoplasm of upper lobe, right bronchus or lung; I47.19 Other supraventricular tachycardia; J98.11 Atelectasis; B37.0 Candidal stomatitis; J70.0 Acute pulmonary manifestations due to radiation; D63.0 Anemia in neoplastic disease; R59.0 Localized enlarged lymph nodes; M25.472 Effusion, left ankle; Y84.2 Radiological procedure and radiotherapy as the cause of abnormal reaction of the patient, or of later complication, without mention of misadventure at the time of the procedure; B02.9 Zoster without complications; R00.1 Bradycardia, unspecified; E83.51 Hypocalcemia; E78.00 Pure hypercholesterolemia, unspecified; T39.395A Adverse effect of other nonsteroidal anti-inflammatory drugs [NSAID], initial encounter; G62.9 Polyneuropathy, unspecified; T38.0X5A Adverse effect of glucocorticoids and synthetic analogues, initial encounter; J43.1 Panlobular emphysema; K14.0 Glossitis; K44.9 Diaphragmatic hernia without obstruction or gangrene; K31.89 Other diseases of stomach and duodenum; K22.89 Other specified disease of esophagus; R91.8 Other nonspecific abnormal finding of lung field; H26.9 Unspecified cataract; H40.053 Ocular hypertension, bilateral; Z92.3 Personal history of irradiation; Z86.16 Personal history of COVID-19; Z87.891 Personal history of nicotine dependence
CPT/HCPCS: 88305; 71045; 71046; 71250; 71260; 74230; 80048; 80053; 81003; 81015; 82306; 82330; 82533; 82607; 82728; 82746; 83540; 83550; 83735; 83880; 84100; 84145; 84443; 84484; 85014; 85018; 85025; 85027; 86850; 86900; 86901; 86920; 87015; 87040; 87070; 87102; 87116; 87205; 87641; 88112; 88342; 92610; 92611; 93005; 93306; 93970; 94640; 96374; 97116; 97163; 97167; 97530; 97535; 99291; P9016; Q9967

== ENCOUNTER → 2024-10-10 09:38 | Outpatient (REF) | payer MEDICARE, SELFPAY ==
[2024-10-10 13:12] LABS: % Basophils 0.4 % (0-2); % Eosinophils 1.6 % (0-6); % Immature Granulocytes 3.1 % (0-0.5); % Lymphocytes 5.8 % (20.5-51.1); % Monocytes 5.3 % (1.7-9.3); % Neutrophils 83.8 % (42.2-75.2); Absolute Basophils 0.1 10^3/uL (0-0.2); Absolute Eosinophils 0.3 10^3/uL (0-0.7); Absolute Immature Granulocytes 0.7 10^3/uL (0-0.05); Absolute Lymphocytes 1.2 10^3/uL (1.2-3.4); Absolute Monocytes 1.1 10^3/uL (0.1-0.6); Absolute Neutrophils 17.8 10^3/uL (1.4-6.5); Hematocrit 31.3 % (39.0-52.0); Hemoglobin 10.2 g/dL (13.0-18.0); Mean Corp Hgb Conc. 32.6 g/dL (33.0-37.0); Mean Corpuscular Hgb 29.1 pg (27.0-31.0); Mean Corpuscular Volume 89.2 fL (80.0-94.0); Mean Platelet Volume 8.6 fL (7.4-10.4); Nucleated Red Blood Cells % 0 % (-); Platelet Count 406 10^3/uL (130-400); Red Blood Cell Count 3.51 10^6/uL (4.70-6.10); White Blood Cell Count 21.3 10^3/uL (4.8-10.8)
== END ==
LOC: RAD 09:38
PROVIDERS: ATTENDING PHYSICIAN Internal Medicine Critical Care Medicine; FAMILY PHYSICIAN Physician Assistant
DX: C34.91 Malignant neoplasm of unspecified part of right bronchus or lung (principal); R79.89 Other specified abnormal findings of blood chemistry; D72.829 Elevated white blood cell count, unspecified
CPT/HCPCS: 36415; 71046; 82728; 85025

== ENCOUNTER → 2024-10-11 15:43 | Outpatient (REF) | payer MEDICARE, SELFPAY ==
[2024-10-11 16:14] LABS: Hematocrit 29.6 % (39.0-52.0); Hemoglobin 9.5 g/dL (13.0-18.0); Mean Corp Hgb Conc. 32.1 g/dL (33.0-37.0); Mean Corpuscular Volume 90.5 fL (80.0-94.0); Nucleated Red Blood Cells % 0 % (-); Platelet Count 399 10^3/uL (130-400); Red Cell Dist. Width 15.9 % (11.5-14.5)
[2024-10-11 17:15] LABS: ALT (SGPT) 61 U/L (0-50); AST (SGOT) 50 U/L (17-59); Albumin 3.1 g/dl (3.5-5.0); Alkaline Phosphatase 154 U/L (38-126); Blood Urea Nitrogen 14 mg/dl (9-20); Calcium 8.1 mg/dl (8.4-10.2); Carbon Dioxide 21 mmol/L (22-30); Chloride 106 mmol/L (98-107); Glucose 122 mg/dl (70-99); Potassium 3.9 mmol/L (3.5-5.1); Sodium 137 mmol/L (135-145); Total Protein 6.2 g/dl (6.3-8.2); eGFR > 60.00
== END ==
LOC: REG 15:43
PROVIDERS: ATTENDING PHYSICIAN Physician Assistant
DX: J43.2 Centrilobular emphysema (principal); D72.829 Elevated white blood cell count, unspecified; C34.91 Malignant neoplasm of unspecified part of right bronchus or lung
CPT/HCPCS: 36415; 80053; 85025; 87040

== ENCOUNTER → 2024-10-25 14:09 | Outpatient (REF) | payer MEDICARE, SELFPAY ==
[2024-10-25 17:12] LABS: Hematocrit 28.7 % (39.0-52.0); Hemoglobin 9.5 g/dL (13.0-18.0); Mean Corp Hgb Conc. 33.1 g/dL (33.0-37.0); Mean Corpuscular Volume 86.2 fL (80.0-94.0); Nucleated Red Blood Cells % 0 % (-); Platelet Count 386 10^3/uL (130-400); Red Cell Dist. Width 15.6 % (11.5-14.5)
[2024-10-25 17:39] LABS: ALT (SGPT) 19 U/L (0-50); AST (SGOT) 20 U/L (17-59); Albumin 2.8 g/dl (3.5-5.0); Alkaline Phosphatase 128 U/L (38-126); Blood Urea Nitrogen 10 mg/dl (9-20); Calcium 8.2 mg/dl (8.4-10.2); Carbon Dioxide 22 mmol/L (22-30); Chloride 104 mmol/L (98-107); Glucose 90 mg/dl (70-99); HDL Cholesterol 35 mg/dl; LDL Cholesterol, Calculated 49 mg/dl; Potassium 3.7 mmol/L (3.5-5.1); Sodium 135 mmol/L (135-145); Total Protein 5.7 g/dl (6.3-8.2); Very Low Density Lipoprotein 18 mg/dl (0-30); eGFR > 60.00
== END ==
LOC: RAD 14:09
PROVIDERS: ATTENDING PHYSICIAN Internal Medicine Critical Care Medicine; FAMILY PHYSICIAN Physician Assistant
DX: C34.91 Malignant neoplasm of unspecified part of right bronchus or lung (principal); R06.09 Other forms of dyspnea; J43.2 Centrilobular emphysema; E78.00 Pure hypercholesterolemia, unspecified
CPT/HCPCS: 36415; 71260; 80053; 80061; 85025; 93970; Q9967

== ENCOUNTER → 2025-01-31 10:52 | Outpatient (REF) | payer MEDICARE, SELFPAY ==
[2025-01-31 11:26] LABS: Hematocrit 38.4 % (39.0-52.0); Hemoglobin 11.5 g/dL (13.0-18.0); Mean Corp Hgb Conc. 29.9 g/dL (33.0-37.0); Mean Corpuscular Volume 88.9 fL (80.0-94.0); Nucleated Red Blood Cells % 0 % (-); Platelet Count 449 10^3/uL (130-400); Red Cell Dist. Width 16.6 % (11.5-14.5)
== END ==
LOC: REG 10:52
PROVIDERS: ATTENDING PHYSICIAN Physician Assistant; FAMILY PHYSICIAN Family Medicine
DX: D50.0 Iron deficiency anemia secondary to blood loss (chronic) (principal)
CPT/HCPCS: 36415; 85025

== ENCOUNTER → 2025-03-10 08:21 | Outpatient (REF) | payer MEDICARE, SELFPAY ==
[2025-03-10 08:57] VITALS: BP 142/84; BP_SYST 104
[2025-03-10 09:26] VITALS: BP 107/69; BP_SYST 101
[2025-03-10 10:57] LABS: Body Fluid Second Tech RP
== END ==
LOC: RADI 08:21
PROVIDERS: ATTENDING PHYSICIAN Internal Medicine Critical Care Medicine; FAMILY PHYSICIAN Physician Assistant
DX: J90 Pleural effusion, not elsewhere classified (principal)
CPT/HCPCS: 32555; 71045; 82945; 83615; 83986; 84157; 87015; 87070; 87102; 87116; 87205; 88112; 88305; 88341; 88342; 89051